=== PATIENT | female | born 2005 | race Caucasian/White ===

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

== ENCOUNTER 2024-02-11 12:45 | Emergency (ER) | payer OTHER ==
--- NOTE | 2024-02-11 13:12 | ED ---
General Adult HPI - General Source: patient Mode of arrival: ambulatory Limitations: no limitations <Benoit Parsons - Last Filed: 02/11/24 13:12> <Jose Landry - Last Filed: 02/11/24 16:37> - General Chief complaint: Psychiatric Symptoms Stated complaint: Mental Health Time Seen by Provider: 02/11/24 13:12 - History of Present Illness Initial comments: 18-year-old female presenting for psychiatric evaluation. Patient reports that she has been out of her psychiatric medications. States that she has been having disassociative symptoms. She has also been experiencing hallucinations. No suicidal ideation. Wants to be seen by psych (Benoit Parsons) 18-year-old female presenting to the emergency department for medication refill, patient denies any suicidal or homicidal ideation. She states she is just here for medication refill. She states she takes Zoloft, Seroquel and lithium. No other complaints. (Jose Landry) - Related Data Previous Rx's Medication Instructions Recorded QUEtiapine [SEROquel] 100 mg PO HS 7 Days #7 tab 11/09/22 Sertraline [Zoloft] 100 mg PO DAILY 7 Days #7 tab 11/09/22 Benzonatate [Tessalon Perle] 200 mg PO TID PRN #30 capsule 12/26/23 [place] Carbonate [[place] 300 mg PO DAILY #30 tab 02/11/24 Carbonate ER] QUEtiapine [SEROquel] 100 mg PO HS #30 tablet 02/11/24 Sertraline [Zoloft] 150 mg PO DAILY #90 tab 02/11/24 Allergies Allergy/AdvReac Type Severity Reaction Status Date / Time No Known Allergies Allergy Verified 02/11/24 12:59 Review of Systems ROS Other: All systems not noted in ROS Statement are negative. <Benoit Parsons - Last Filed: 02/11/24 13:12> ROS Other: All systems not noted in ROS Statement are negative. <Jose Landry - Last Filed: 02/11/24 16:37> ROS Statement: Those systems with pertinent positive or pertinent negative responses have been documented in the HPI. Past Medical History Past Medical History: No Reported History History of Any Multi-Drug Resistant Organisms: None Reported Past Surgical History: No Surgical Hx Reported Past Psychological History: ADD/ADHD, Anxiety, Depression, PTSD Smoking Status: Never smoker Past Alcohol Use History: Occasional Past Drug Use History: None Reported <Benoit Parsons - Last Filed: 02/11/24 13:12> General Exam Limitations: no limitations <Benoit Parsons - Last Filed: 02/11/24 13:12> General appearance: alert, in no apparent distress Head exam: Present: atraumatic, normocephalic Eye exam: Present: normal appearance, PERRL ENT exam: Present: normal exam Neck exam: Absent: tenderness, meningismus Respiratory exam: Present: normal lung sounds bilaterally. Absent: respiratory distress, wheezes Cardiovascular Exam: Present: regular rate, normal rhythm GI/Abdominal exam: Present: soft. Absent: distended, tenderness, guarding Neurological exam: Present: alert, oriented X3 Psychiatric exam: Present: flat affect. Absent: anxious, homicidal ideation, suicidal ideation Skin exam: Present: warm, dry, intact, normal color <Jose Landry - Last Filed: 02/11/24 16:37> - General Exam Comments Initial Comments: Visual Physical Exam Vital signs reviewed General: Well-appearing, nontoxic, no acute distress. Head: Normocephalic, atraumatic Eyes: PERRLA, EOMI ENT: Airway patent Chest: Nonlabored breathing Skin: No visual rash, normal skin tone Neuro: Alert and oriented 3 Musculoskeletal: No gross abnormalities (Benoit Parsons) Course Vital Signs 02/11/24 12:57 Temperature 98.4 F Pulse Rate 114 H Respiratory 20 Rate Blood Pressure 111/75 O2 Sat by Pulse 96 Oximetry Medical Decision Making <Benoit Parsons - Last Filed: 02/11/24 13:12> <Jose Landry - Last Filed: 02/11/24 16:37> - Medical Decision Making I performed the quick note portion of this visit, electronically signed Benoit Parsons PA-C (Benoit Parsons) Was pt. sent in by a medical professional or institution (DENISHA Beasley, SAW TAILER, urgent care, hospital, or skilled nursing...) When possible be specific @ -No Did you speak to anyone other than the patient for history (EMS, parent, family, police, friend...)? What history was obtained from this source @ -No Did you review nursing and triage notes (agree or disagree)? Why? @ -I reviewed and agree with nursing and triage notes Were old charts reviewed (outside hosp., previous admission, EMS record, old EKG, old radiological studies, urgent care reports/EKG's, skilled nursing records)? Report findings @ -No old charts were reviewed Differential Diagnosis: Medication refill EKG interpreted by me (3pts min.). @ -As above X-rays interpreted by me (1pt min.). @ -None done CT interpreted by me (1pt min.). @ -None done U/S interpreted by me (1pt. min.). @ -None done What testing was considered but not performed or refused? (CT, X-rays, U/S, labs)? Why? @ -None What meds were considered but not given or refused? Why? @ -None Did you discuss the management of the patient with other professionals (professionals i.e. , PA, SAW TAILER, lab, RT, psych nurse, social organization professor, capacity analyst, teacher, global chief creative officer, shoe caser)? Give summary @ -No Was smoking cessation discussed for >3mins.? @ -No Was critical care preformed (if so, how long)? @ -No Were there social determinants of health that impacted care today? How? (Homelessness, low income, unemployed, alcoholism, drug addiction, transportation, low edu. Level, literacy, decrease access to med. care, long term, rehab)? @ -No Was there de-escalation of care discussed even if they declined (Discuss DNR or withdrawal of care, Hospice)? DNR status @ -No What co-morbidities impacted this encounter? (DM, HTN, Smoking, COPD, CAD, Cancer, CVA, ARF, Chemo, Hep., AIDS, mental health diagnosis, sleep apnea, morbid obesity)? @ -Psychiatric history Was patient admitted / discharged? Hospital course, mention meds given and route, prescriptions, significant lab abnormalities, going to OR and other pertinent info. @Patient here for medication refill without any other complaint. I did refill her medications as requested and recommended that she follow-up with her psychiatrist and community mental health. She should return to the emergency department with any worsening or changing symptoms. Undiagnosed new problem with uncertain prognosis? @ -No Drug Therapy requiring intensive monitoring for toxicity (Heparin, Nitro, Insulin, Cardizem)? @ -No Were any procedures done? @ -No Diagnosis/symptom? @Medication refill Acute, or Chronic, or Acute on Chronic? @Acute Uncomplicated (without systemic symptoms) or Complicated (systemic symptoms)? @ -Default Side effects of treatment? @ -No Exacerbation, Progression, or Severe Exacerbation? @ -No Poses a threat to life or bodily function? How? (Chest pain, [place], [place], pneumonia, PE, COPD, DKA, ARF, appy, cholecystitis, CVA, Diverticulitis, Homicidal, Suicidal, threat to staff... and all critical care pts) @ -No (Jose Landry) Disposition <Benoit Parsons - Last Filed: 02/11/24 13:12> Time of Disposition: 16:34 <Jose Landry - Last Filed: 02/11/24 16:37> Clinical Impression: Medication refill Disposition: HOME SELF-CARE Condition: Fair Instructions (If sedation given, give patient instructions): Medicine Refill (ED) Additional Instructions: Please take medication as prescribed. Please follow-up with your psychiatrist or community mental health. Please return to the emergency department with any new or concerning symptoms. Prescriptions: [place] Carbonate [[place] Carbonate ER] 300 mg PO DAILY #30 tab QUEtiapine [SEROquel] 100 mg PO HS #30 tablet Sertraline [Zoloft] 150 mg PO DAILY #90 tab Referrals: None,Stated [Primary Care Provider] - 1-2 days
[2024-02-11 17:41] VITALS: BP 113/76; PULSE 90; RESP 18; TEMP 97.8
== END 2024-02-11 17:41 | disposition home or self-care (01) ==
LOC: EC 12:45
DX: Z76.0 Encounter for issue of repeat prescription (principal)
CPT/HCPCS: 99281; 99284

== ENCOUNTER 2024-03-25 23:59 | Emergency (ER) | payer OTHER ==
[2024-03-26 00:37] VITALS: BP 130/89; PULSE 80; RESP 18; TEMP 98
--- NOTE | 2024-03-26 00:49 | ED ---
General Adult HPI - General Chief complaint: Recheck/Abnormal Lab/Rx Stated complaint: Med refill Time Seen by Provider: 03/26/24 00:25 Source: patient Mode of arrival: ambulatory Limitations: no limitations - History of Present Illness Initial comments: 18-year-old female here for medication refill. Patient does not have a PCP currently, states they have had insurance issues. They also do not have a psychiatrist at the moment. They have been out of their medications for 3 days. No other complaints - Related Data Previous Rx's Medication Instructions Recorded [place] Carbonate [[place] 300 mg PO DAILY #30 tab 02/11/24 Carbonate ER] QUEtiapine [SEROquel] 100 mg PO HS #30 tablet 02/11/24 Sertraline [Zoloft] 150 mg PO DAILY #90 tab 02/11/24 [place] Carbonate [[place] 300 mg PO DAILY #30 tab 03/26/24 Carbonate ER] QUEtiapine [SEROquel] 100 mg PO HS #30 tablet 03/26/24 Sertraline [Zoloft] 150 mg PO DAILY #90 tab 03/26/24 Allergies Allergy/AdvReac Type Severity Reaction Status Date / Time No Known Allergies Allergy Verified 03/26/24 00:18 Review of Systems ROS Statement: Those systems with pertinent positive or pertinent negative responses have been documented in the HPI. ROS Other: All systems not noted in ROS Statement are negative. Past Medical History Past Medical History: No Reported History History of Any Multi-Drug Resistant Organisms: None Reported Past Surgical History: No Surgical Hx Reported Past Psychological History: ADD/ADHD, Anxiety, Depression, PTSD Smoking Status: Never smoker Past Alcohol Use History: Occasional Past Drug Use History: None Reported General Exam Limitations: no limitations General appearance: alert, in no apparent distress Head exam: Present: atraumatic, normocephalic, normal inspection Eye exam: Present: normal appearance, EOMI Neck exam: Present: normal inspection. Absent: meningismus Respiratory exam: Absent: respiratory distress Cardiovascular Exam: Present: regular rate Neurological exam: Present: alert, oriented X3 Psychiatric exam: Present: normal affect, normal mood Skin exam: Present: warm, dry Course Vital Signs 03/26/24 00:17 Temperature 98 F Pulse Rate 80 Respiratory 18 Rate Blood Pressure 130/89 O2 Sat by Pulse 98 Oximetry Medical Decision Making - Medical Decision Making Was pt. sent in by a medical professional or institution ([facility] Beasley, HOOP RIVETING MACHINE OPERATOR HELPER, urgent care, hospital, or senior care...) When possible be specific @ -No Did you speak to anyone other than the patient for history (EMS, parent, family, police, friend...)? What history was obtained from this source @ -No Did you review nursing and triage notes (agree or disagree)? Why? @ -I reviewed and agree with nursing and triage notes Were old charts reviewed (outside hosp., previous admission, EMS record, old EKG, old radiological studies, urgent care reports/EKG's, senior care records)? Report findings @ -No old charts were reviewed Differential Diagnosis (chest pain, altered mental status, abdominal pain women, abdominal pain men, vaginal bleeding, weakness, fever, dyspnea, syncope, headache, dizziness, GI bleed, back pain, seizure, CVA, palpatations, mental health, musculoskeletal)? @ -Not applicable EKG interpreted by me (3pts min.). @ -As above X-rays interpreted by me (1pt min.). @ -None done CT interpreted by me (1pt min.). @ -None done U/S interpreted by me (1pt. min.). @ -None done What testing was considered but not performed or refused? (CT, X-rays, U/S, labs)? Why? @ -None What meds were considered but not given or refused? Why? @ -None Did you discuss the management of the patient with other professionals (tahir blackwell i.e. DENISHA Beasley, HOOP RIVETING MACHINE OPERATOR HELPER, lab, RT, psych nurse, social media campaign manager, aircraft ordnance technician, teacher, recruitment officer, briefcase sewer)? Give summary @ -No Was smoking cessation discussed for >3mins.? @ -No Was critical care preformed (if so, how long)? @ -No Were there social determinants of health that impacted care today? How? (Homelessness, low income, unemployed, alcoholism, drug addiction, transportation, low edu. Level, literacy, decrease access to med. care, correction, rehab)? @ -No Was there de-escalation of care discussed even if they declined (Discuss DNR or withdrawal of care, Hospice)? DNR status @ -No What co-morbidities impacted this encounter? (DM, HTN, Smoking, COPD, CAD, Cancer, CVA, ARF, Chemo, Hep., AIDS, mental health diagnosis, sleep apnea, morbid obesity)? @ -None Was patient admitted / discharged? Hospital course, mention meds given and route, prescriptions, significant lab abnormalities, going to OR and other pertinent info. @ -18-year-old female requesting medication refill. She currently does not have a PCP or psychiatrist. Refills of Zoloft 150 mg daily, lithium 300 mg daily, and Seroquel 100 mg nightly are sent to the pharmacy. Provided with PCP referral. Follow-up with PCP. Report back to ER with any new or worsening symptoms. Discussed return parameters and answered all questions. Patient conveyed verbal understanding and agreed to the plan. I discussed this case in detail with my attending Dr. Borrero Undiagnosed new problem with uncertain prognosis? @ -No Drug Therapy requiring intensive monitoring for toxicity (Heparin, Nitro, Insulin, Cardizem)? @ -No Were any procedures done? @ -No Diagnosis/symptom? @ -Encounter for medication refill Acute, or Chronic, or Acute on Chronic? @ -Acute Uncomplicated (without systemic symptoms) or Complicated (systemic symptoms)? @ -Uncomplicated Side effects of treatment? @ -No Exacerbation, Progression, or Severe Exacerbation? @ -No Poses a threat to life or bodily function? How? (Chest pain, [place], [place], pneumonia, PE, COPD, DKA, ARF, appy, cholecystitis, CVA, Diverticulitis, Homicidal, Suicidal, threat to staff... and all critical care pts) @ -No Disposition Clinical Impression: Encounter for medication refill Disposition: HOME SELF-CARE Condition: Good Additional Instructions: Follow-up with PCP. Prescriptions: [place] Carbonate [[place] Carbonate ER] 300 mg PO DAILY #30 tab QUEtiapine [SEROquel] 100 mg PO HS #30 tablet Sertraline [Zoloft] 150 mg PO DAILY #90 tab Is patient prescribed a controlled substance at d/c from ED?: No Referrals: None,Stated [Primary Care Provider] - 1-2 days Forms: Area PCPs Time of Disposition: 00:47
== END 2024-03-26 00:55 | disposition home or self-care (01) ==
LOC: EC 23:59
DX: Z76.0 Encounter for issue of repeat prescription (principal)
CPT/HCPCS: 99281

== ENCOUNTER 2024-04-12 19:42 | Emergency (ER) | payer OTHER ==
[2024-04-12] MEDS: IBUPROFEN 600 MG TAB PO STA (20:16)
--- NOTE | 2024-04-12 20:48 | XR ---
EXAMINATION TYPE: XR chest 2V DATE OF EXAM: 04/12/2024 8:31 PM COMPARISON: 12/26/2023 CLINICAL INDICATION: Female, 18 years old with history of cough sob, swollen throat nausea vomiting TECHNIQUE: XR chest 2V view(s) obtained. FINDINGS: The heart size is normal. The pulmonary vasculature is normal. The lungs are clear. IMPRESSION: 1. No acute pulmonary process. [facility], Workstation: [facility], 04/12/2024 8:45 PM
--- NOTE | 2024-04-12 21:02 | ED ---
SOB HPI - General Chief Complaint: Shortness of Breath Stated Complaint: cough, vomiting Time Seen by Provider: 04/12/24 21:01 Source: patient, RN notes reviewed Mode of arrival: ambulatory Limitations: no limitations - History of Present Illness Initial Comments: Patient is a 18-year-old female presenting to the ER for evaluation of swollen t hroat and shortness of breath. Patient states she abruptly woke up around 5 AM this morning feeling short of breath and having difficulty catching her breath. She states she took inhaler at that time. Unsure of which medication. She states after that she started to feel a swollen throat as if her uvula was touching her tongue causing her to gag and have numerous episodes of emesis. She denies any hematic emesis or coffee-ground emesis. Patient does report she has had recent night sweats and chills. Denies known fevers. Patient has no history of asthma and was prescribed inhaler due to recent illness. Patient denies any chest pain, cough, congestion, abdominal pain, constipation/diarrhea, urinary complaints or peripheral edema. - Related Data Previous Rx's Medication Instructions Recorded Morgan Carbonate [Morgan 300 mg PO DAILY #30 tab 02/11/24 Carbonate ER] QUEtiapine [SEROquel] 100 mg PO HS #30 tablet 02/11/24 Sertraline [Zoloft] 150 mg PO DAILY #90 tab 02/11/24 Morgan Carbonate [Morgan 300 mg PO DAILY #30 tab 03/26/24 Carbonate ER] QUEtiapine [SEROquel] 100 mg PO HS #30 tablet 03/26/24 Sertraline [Zoloft] 150 mg PO DAILY #90 tab 03/26/24 Allergies Allergy/AdvReac Type Severity Reaction Status Date / Time No Known Allergies Allergy Verified 04/12/24 19:52 Review of Systems ROS Statement: Those systems with pertinent positive or pertinent negative responses have been documented in the HPI. ROS Other: All systems not noted in ROS Statement are negative. Past Medical History Past Medical History: No Reported History History of Any Multi-Drug Resistant Organisms: None Reported Past Surgical History: No Surgical Hx Reported Past Psychological History: ADD/ADHD, Anxiety, Depression, PTSD Smoking Status: Never smoker Past Alcohol Use History: Occasional Past Drug Use History: None Reported General Exam Limitations: no limitations General appearance: alert, in no apparent distress ENT exam: Present: normal exam, mucous membranes moist, TM's normal bilaterally, other (Erythematous oropharynx.) Neck exam: Present: normal inspection. Absent: tenderness, meningismus, lymph adenopathy Respiratory exam: Present: normal lung sounds bilaterally. Absent: respiratory distress, wheezes, rales, rhonchi, stridor Cardiovascular Exam: Present: regular rate, normal rhythm, normal heart sounds. Absent: systolic murmur, diastolic murmur, rubs, gallop, clicks GI/Abdominal exam: Present: soft, normal bowel sounds. Absent: distended, tenderness, guarding, rebound, rigid Extremities exam: Present: normal inspection, full ROM, normal capillary refill. Absent: tenderness, pedal edema, joint swelling, calf tenderness Neurological exam: Present: alert, oriented X3, CN II-XII intact Skin exam: Present: warm, dry, intact, normal color. Absent: rash Course Vital Signs 04/12/24 04/12/24 19:52 21:36 Temperature 98.1 F 97.8 F Pulse Rate 116 H 98 Respiratory 18 19 Rate Blood Pressure 115/80 120/84 O2 Sat by Pulse 98 98 Oximetry Medical Decision Making - Medical Decision Making Was pt. sent in by a medical professional or institution (, PA, [employer], urgent care, hospital, or [facility]...) When possible be specific @ -No Did you speak to anyone other than the patient for history (EMS, parent, family, police, friend...)? What history was obtained from this source @ -No Did you review nursing and triage notes (agree or disagree)? Why? @ -I reviewed and agree with nursing and triage notes Were old charts reviewed (outside hosp., previous admission, EMS record, old EKG, old radiological studies, urgent care reports/EKG's, [facility] records)? Report findings @ -No old charts were reviewed Differential Diagnosis (chest pain, altered mental status, abdominal pain women, abdominal pain men, vaginal bleeding, weakness, fever, dyspnea, syncope, headache, dizziness, GI bleed, back pain, seizure, CVA, palpatations, mental health, musculoskeletal)? @ -Strep pharyngitis, tonsillitis, viral illness,... This list is not meant to be all-inclusive EKG interpreted by me (3pts min.). @ -None done X-rays interpreted by me (1pt min.). @ -CXR interpreted me negative for focal consolidation, pneumothorax, effusions. CT interpreted by me (1pt min.). @ -None done U/S interpreted by me (1pt. min.). @ -None done What testing was considered but not performed or refused? (CT, X-rays, U/S, labs)? Why? @ -None What meds were considered but not given or refused? Why? @ -None Did you discuss the management of the patient with other professionals (professionals i.e. , PA, [employer], lab, RT, psych nurse, child protective services social worker, parts specialist, teacher, chief environmental commitment officer, medical case manager)? Give summary @ -No Was smoking cessation discussed for >3mins.? @ -No Was critical care preformed (if so, how long)? @ -No Were there social determinants of health that impacted care today? How? (Homelessness, low income, unemployed, alcoholism, drug addiction, transportation, low edu. Level, literacy, decrease access to med. care, shelter, rehab)? @ -No Was there de-escalation of care discussed even if they declined (Discuss DNR or withdrawal of care, Hospice)? DNR status @ -No What co-morbidities impacted this encounter? (DM, HTN, Smoking, COPD, CAD, Cancer, CVA, ARF, Chemo, Hep., AIDS, mental health diagnosis, sleep apnea, morbid obesity)? @ -Obese Was patient admitted / discharged? Hospital course, mention meds given and route, prescriptions, significant lab abnormalities, going to OR and other pertinent info. @ -Discharge. 18-year-old female presenting to the ER for evaluation of swollen uvula. Upon rooming, history and physical exam completed. Vitals within acceptable limits. Oropharynx including uvula is erythematous. Oropharynx is patent. Viral swab negative. Strep negative. CXR negative. Patient given p.o. ibuprofen and IM Decadron for symptom control. Discomfort possibly viral or due to snoring as patient admits to this and symptoms worse in AM. Upon reevaluation, patient playing game on laptop with no signs of acute distress. Results discussed with patient, all questions answered. I advised [id number] ibuprofen and Tylenol for pain control outpatient. Advised close follow-up with PCP for outpatient further evaluation. Strict return parameters discussed. Patient discharged in stable condition with follow-up to PCP. Patient verbally expressed understanding and agreement with care plan. Case discussed with ED attending, Dr. Leblanc. Undiagnosed new problem with uncertain prognosis? @ -No Drug Therapy requiring intensive monitoring for toxicity (Heparin, Nitro, Insulin, Cardizem)? @ -No Were any procedures done? @ -No Diagnosis/symptom? @ -Uvulitis Acute, or Chronic, or Acute on Chronic? @ -Acute Uncomplicated (without systemic symptoms) or Complicated (systemic symptoms)? @ -Uncomplicated Side effects of treatment? @ -No Exacerbation, Progression, or Severe Exacerbation? @ -No Poses a threat to life or bodily function? How? (Chest pain, USA, CT, pneumonia, PE, COPD, DKA, ARF, appy, cholecystitis, CVA, Diverticulitis, Homicidal, Suicidal, threat to staff... and all critical care pts) @ -No - Lab Data Lab Results 04/12/24 04/12/24 Range/Units 20:19 20:19 Influenza Type A (PCR) Not Detected (Not Detectd) Influenza Type B (PCR) Not Detected (Not Detectd) RSV (PCR) Not Detected (Not Detectd) SARS-CoV-2 (PCR) Not Detected (Not Detectd) Group A Strep (PCR) NOT DETECTED (Not Detectd) Disposition Clinical Impression: Uvulitis Disposition: HOME SELF-CARE Condition: Stable Instructions (If sedation given, give patient instructions): Uvulitis (ED) Additional Instructions: Follow-up with PCP. Return to the ER for any new or worsening symptoms. Is patient prescribed a controlled substance at d/c from ED?: No Referrals: None,Stated [Primary Care Provider] - 1-2 days Forms: Area PCPs Time of Disposition: 21:34
[2024-04-12 21:22] LABS: Influenza A Not Detected (Not Detectd); Influenza B Not Detected (Not Detectd); RSV Not Detected (Not Detectd)
[2024-04-12 21:36] VITALS: BP 120/84; PULSE 98; RESP 19; TEMP 97.8
[2024-04-12] MEDS: DEXAMETHASONE SOD PHOSPHATE 10 MG/ML 1 ML VIAL IM STA (21:40)
== END 2024-04-12 21:45 | disposition home or self-care (01) ==
LOC: EC 19:42
DX: K12.2 Cellulitis and abscess of mouth (principal); E66.9 Obesity, unspecified
CPT/HCPCS: 87651; 87636; 71046; 99285; 96372; J1100

== ENCOUNTER 2024-06-07 21:27 | Emergency (ER) | payer OTHER ==
--- NOTE | 2024-06-08 00:17 | ED ---
Psych HPI - General Chief Complaint: Psychiatric Symptoms Stated Complaint: med refill Time Seen by Provider: 06/07/24 23:42 Source: patient Mode of arrival: ambulatory - History of Present Illness Initial Comments: This patient is a 18-year-old woman with history of bipolar disorder, PTSD, schizoaffective disorder, who presents with request that she is out of her medications and has not been able to have them refilled. She states that she was being seen through [facility] and that they were prescribing her medication but she then lost her health coverage. The patient denies new symptoms. Not actively suicidal. MD Complaint: other -: month(s) Associated Psychiatric Symptoms: none History of same: Yes Quality: resolved prior to arrival Improves With: medication Worsens With: none - Related Data Previous Rx's Medication Instructions Recorded [place] Carbonate [[place] 300 mg PO DAILY #30 tab 02/11/24 Carbonate ER] QUEtiapine [SEROquel] 100 mg PO HS #30 tablet 02/11/24 Sertraline [Zoloft] 150 mg PO DAILY #90 tab 02/11/24 [place] Carbonate [[place] 300 mg PO DAILY #30 tab 03/26/24 Carbonate ER] QUEtiapine [SEROquel] 100 mg PO HS #30 tablet 03/26/24 Sertraline [Zoloft] 150 mg PO DAILY #90 tab 03/26/24 Amoxic-Pot Clav 875-125Mg 1 tab PO Q12HR 7 Days #14 tab 04/19/24 [Augmentin 875-125] Benzonatate [Tessalon Perle] 200 mg PO TID PRN #20 capsule 04/19/24 Promethazine/Dextromethorphan 5 ml PO Q4-6H PRN #150 ml 04/19/24 [Promethazine-Dm 6.25-15 mg/5Ml] [place] Carbonate [[place] 300 mg PO DAILY 30 Days #30 tab 04/24/24 Carbonate ER] QUEtiapine [SEROquel] 100 mg PO HS 30 Days #30 tablet 04/24/24 Sertraline [Zoloft] 150 mg PO DAILY 30 Days #30 tab 04/24/24 [place] Carbonate [[place] 300 mg PO DAILY #30 tab 06/08/24 Carbonate ER] QUEtiapine [SEROquel] 100 mg PO HS #30 tablet 06/08/24 Sertraline HCl [Zoloft] 150 mg PO DAILY #30 tab 06/08/24 Allergies Allergy/AdvReac Type Severity Reaction Status Date / Time No Known Allergies Allergy Verified 04/24/24 13:48 Review of Systems ROS Statement: Those systems with pertinent positive or pertinent negative responses have been documented in the HPI. ROS Other: All systems not noted in ROS Statement are negative. Constitutional: Denies: fever, chills Respiratory: Denies: cough, dyspnea Cardiovascular: Denies: chest pain, palpitations Gastrointestinal: Denies: abdominal pain, vomiting Genitourinary: Denies: dysuria Musculoskeletal: Denies: back pain Skin: Denies: rash Neurological: Denies: headache, weakness Psychiatric: Denies: depression, auditory hallucinations, visual hallucinations, homicidal thoughts, suicidal thoughts Past Medical History Past Medical History: No Reported History History of Any Multi-Drug Resistant Organisms: None Reported Past Surgical History: No Surgical Hx Reported Past Psychological History: ADD/ADHD, Anxiety, Depression, PTSD Smoking Status: Current every day smoker, Vaper Past Alcohol Use History: Occasional Past Drug Use History: Marijuana General Exam Limitations: no limitations General appearance: alert, in no apparent distress Head exam: Present: atraumatic, normocephalic Eye exam: Present: normal appearance. Absent: scleral icterus, conjunctival injection ENT exam: Present: normal oropharynx Neck exam: Present: normal inspection Respiratory exam: Present: normal lung sounds bilaterally. Absent: respiratory distress, wheezes, rales, rhonchi, stridor, accessory muscle use Cardiovascular Exam: Present: regular rate, normal rhythm, normal heart sounds. Absent: systolic murmur, diastolic murmur, rubs, gallop GI/Abdominal exam: Present: soft. Absent: distended, tenderness, guarding, rebound, rigid, mass Extremities exam: Present: normal inspection, normal capillary refill. Absent: pedal edema, calf tenderness Back exam: Present: normal inspection. Absent: CVA tenderness (R), CVA tenderness (L) Neurological exam: Present: alert, oriented X3 Psychiatric exam: Present: normal affect, normal mood. Absent: agitated, anxious, homicidal ideation, suicidal ideation Skin exam: Present: warm, dry, intact, normal color. Absent: rash Course Vital Signs 06/07/24 21:53 Temperature 98 F Pulse Rate 78 Respiratory 20 Rate Blood Pressure 147/101 O2 Sat by Pulse 99 Oximetry Disposition Clinical Impression: Medication refill Disposition: HOME SELF-CARE Condition: Good Prescriptions: Vanndale Carbonate [Vanndale Carbonate ER] 300 mg PO DAILY #30 tab QUEtiapine [SEROquel] 100 mg PO HS #30 tablet Sertraline HCl [Zoloft] 150 mg PO DAILY #30 tab Is patient prescribed a controlled substance at d/c from ED?: No Referrals: None,Stated [Primary Care Provider] - 1-2 days
[2024-06-08 00:35] VITALS: BP 124/88; PULSE 105; RESP 17; TEMP 97.6
== END 2024-06-08 00:37 | disposition home or self-care (01) ==
LOC: EC 21:27
DX: Z76.0 Encounter for issue of repeat prescription (principal); F17.290 Nicotine dependence, other tobacco product, uncomplicated
CPT/HCPCS: 82075; 99284

== ENCOUNTER 2024-07-02 20:16 | Inpatient (IN) | payer MEDICAID, OTHER ==
--- NOTE | 2024-07-02 21:12 | ED ---
Psych HPI - General Chief Complaint: Psychiatric Symptoms Stated Complaint: Mental issues Time Seen by Provider: 07/02/24 21:03 Source: patient, RN notes reviewed, old records reviewed Mode of arrival: ambulatory Limitations: no limitations - History of Present Illness Initial Comments: This is a 18-year-old presents today for evaluation of psychiatric and suicidal thoughts. Patient states home medications are not working and needs medication adjustment MD Complaint: suicidal ideation, feels depressed -: days(s) Associated Psychiatric Symptoms: depression, suicidal ideation History of same: Yes Quality: constant Improves With: none Worsens With: none Associated Symptoms: denies other symptoms Treatments Prior to Arrival: placed on mental health hold If Self Harm: admits thoughts of self harm - Related Data Previous Rx's Medication Instructions Recorded [place] Carbonate [Verona 300 mg PO DAILY #30 tab 02/11/24 Carbonate ER] QUEtiapine [SEROquel] 100 mg PO HS #30 tablet 02/11/24 Sertraline [Zoloft] 150 mg PO DAILY #90 tab 02/11/24 [place] Carbonate [[place] 300 mg PO DAILY #30 tab 03/26/24 Carbonate ER] QUEtiapine [SEROquel] 100 mg PO HS #30 tablet 03/26/24 Sertraline [Zoloft] 150 mg PO DAILY #90 tab 03/26/24 Amoxic-Pot Clav 875-125Mg 1 tab PO Q12HR 7 Days #14 tab 04/19/24 [Augmentin 875-125] Benzonatate [Tessalon Perle] 200 mg PO TID PRN #20 capsule 04/19/24 Promethazine/Dextromethorphan 5 ml PO Q4-6H PRN #150 ml 04/19/24 [Promethazine-Dm 6.25-15 mg/5Ml] [place] Carbonate [Verona 300 mg PO DAILY 30 Days #30 tab 04/24/24 Carbonate ER] QUEtiapine [SEROquel] 100 mg PO HS 30 Days #30 tablet 04/24/24 Sertraline [Zoloft] 150 mg PO DAILY 30 Days #30 tab 04/24/24 [place]ona Carbonate [Verona 300 mg PO DAILY #30 tab 06/08/24 Carbonate ER] QUEtiapine [SEROquel] 100 mg PO HS #30 tablet 06/08/24 Sertraline HCl [Zoloft] 150 mg PO DAILY #30 tab 06/08/24 Allergies Allergy/AdvReac Type Severity Reaction Status Date / Time No Known Allergies Allergy Verified 07/02/24 20:31 Review of Systems ROS Statement: Those systems with pertinent positive or pertinent negative responses have been documented in the HPI. ROS Other: All systems not noted in ROS Statement are negative. Past Medical History Past Medical History: No Reported History History of Any Multi-Drug Resistant Organisms: None Reported Past Surgical History: No Surgical Hx Reported Past Psychological History: ADD/ADHD, Anxiety, Depression, PTSD Smoking Status: Current every day smoker, Vaper Past Alcohol Use History: Occasional Past Drug Use History: Marijuana General Exam Limitations: no limitations General appearance: alert, in no apparent distress Head exam: Present: atraumatic, normocephalic, normal inspection Eye exam: Present: normal appearance, PERRL, EOMI. Absent: scleral icterus, conjunctival injection, periorbital swelling ENT exam: Present: normal exam, mucous membranes moist Neck exam: Present: normal inspection. Absent: tenderness, meningismus, lymphadenopathy Respiratory exam: Present: normal lung sounds bilaterally. Absent: respiratory distress, wheezes, rales, rhonchi, stridor Cardiovascular Exam: Present: regular rate, normal rhythm, normal heart sounds. Absent: systolic murmur, diastolic murmur, rubs, gallop, clicks GI/Abdominal exam: Present: soft, normal bowel sounds. Absent: distended, tenderness, guarding, rebound, rigid Extremities exam: Present: normal inspection, full ROM, normal capillary refill. Absent: tenderness, pedal edema, joint swelling, calf tenderness Back exam: Present: normal inspection Neurological exam: Present: alert, oriented X3, CN II-XII intact Psychiatric exam: Present: normal affect, normal mood Skin exam: Present: warm, dry, intact, normal color. Absent: rash Course Vital Signs 07/02/24 20:28 Temperature 98.2 F Pulse Rate 102 Respiratory 20 Rate Blood Pressure 129/87 O2 Sat by Pulse 95 Oximetry - Reevaluation(s) Reevaluation #1: 07/02/24 23:46 Medical records reviewed Reevaluation #2: 07/02/24 23:46 Medical psychiatric evaluation Reevaluation #3: Differential Mental Health Depression, anxiety, bipolar, psychosis, schizophrenia, borderline personality, situational depression, adjustment disorder, behavioral disorder, brain tumor, malingering, substance abuse, encephalopathy, medication reaction, dementia, hypothyroidism, degenerative neurologic disorder, lupus.... This is not meant to be all-inclusive list Reevaluation #4: yes negative for acute disease Medical Decision Making - Medical Decision Making 18-year-old seen eval by psychiatry will admit for mental health Disposition Clinical Impression: Depression, Post traumatic stress disorder (PTSD) Disposition: TRANSFER TO PSYCH HOSP/UNIT Condition: Fair Is patient prescribed a controlled substance at d/c from ED?: No Referrals: None,Stated [Primary Care Provider] - 1-2 days
[2024-07-02 23:58] LABS: Influenza A Not Detected (Not Detectd); Influenza B Not Detected (Not Detectd); RSV Not Detected (Not Detectd)
[2024-07-03] MEDS ORDERED: haloperidoL 5 MG TAB PO PRN (02:22)
[2024-07-03] MEDS ORDERED: IBUPROFEN 600 MG TAB PO PRN (02:22)
[2024-07-03] MEDS ORDERED: LORazepam 2 MG/ML INJ IM PRN (02:22)
[2024-07-03] MEDS ORDERED: MAGNESIUM HYDROXIDE 2,400 MG/30 ML CUP PO PRN (02:22)
[2024-07-03] MEDS ORDERED: HALOPERIDOL LACTATE 5 MG/ML 1 ML VIAL IM PRN (02:22)
[2024-07-03] MEDS ORDERED: MAG HYDROX/AL HYDROX/SIMETH 355 ML BOTTLE PO PRN (02:22)
[2024-07-03] MEDS ORDERED: ACETAMINOPHEN TAB 325 MG TAB PO PRN (02:22)
[2024-07-03] MEDS: QUEtiapine 100 MG TAB PO ONE (04:19)
[2024-07-03] MEDS: SERTRALINE 100 MG TAB PO SCH (10:36)
[2024-07-03] MEDS: NICOTINE 14MG/24HR PATCH TRANSDERM SCH (10:36)
[2024-07-03] MEDS: LITHIUM CARBONATE 300 MG CAP PO SCH (10:37)
--- NOTE | 2024-07-03 12:05 | P.HP ---
Psychiatric H&P - . H&P Date: 07/03/24 History & Physical: Allergies Allergy/AdvReac Type Severity Reaction Status Date / Time No Known Allergies Allergy Verified 07/02/24 20:31 Vital Signs Temp 97.5 F 07/03/24 10:41 Pulse 107 07/03/24 10:41 Resp 18 07/03/24 10:41 BP 120/81 07/03/24 10:41 Pulse Ox 100 07/03/24 10:41 FiO2 Intake & Output 07/02/24 07/03/24 07/03/24 18:59 06:59 18:59 Weight 121.1 kg Laboratory Last Values [place] <0.2 mmol/L 07/03/24 04:13 Influenza Type A (PCR) Not Detected (Not Detectd) 07/02/24 23:17 Influenza Type B (PCR) Not Detected (Not Detectd) 07/02/24 23:17 RSV (PCR) Not Detected (Not Detectd) 07/02/24 23:17 SARS-CoV-2 (PCR) Not Detected (Not Detectd) 07/02/24 23:17 07/03/24 11:53 IDENTIFYING DATA: Patient is a 18-year-old individual, employed and living independently CHIEF COMPLAINT: SI HPI: Patient presented to the hospital with suicidal thoughts. Per EPS, "Patient presents sitting up in stretcher, currently watching TV, and agreeable to speak to casualty underwriter. Patient appears to be disheveled and unkept, restricted affect, and restless fidgeting with her hands constantly. Patient is transgender female to male, and prefers he/him pronouns. Patient verbalizes "I need a medication change real bad" when asked about presenting problem. Patient states that he has been having increased paranoia, anxiety, and hallucinations. Describes feeling constantly paranoid like people are looking at him and judging him, expresses that he is worried that his mom is stalking him, and believed today that the police was outside to get him and felt like he could hear them outside talking when no one present. Verbalizes having auditory and visual hallucinations. Describes hearing mumbling/whispers but unable to make out any words/voices. Patient states he has been having visual and tactile hallucinations of bugs on his skin. Patient verbalizes being open with [facility] and had intake appointment completed. Verbalizes recently leaving [facility] due to moving to [place]. Patient states that he has history of multiple inpatients but most recent in 10/2022. Patient states having self harm recently to left breast and left forearm. Superficial lacerations noted to left forearm at this time. Patient verbalizes fleeting suicidal thoughts with no current plan. States he has a desire for "everything to stop". Patient verbalizes increased recent stressors including recent suspension from job, inability to pay bills, and running out of food and basic essentials. Patient denies homicidal ideations. Patient verbalizes poor appetite, inability to eat, and no motivation to eat. Describes fair to poor sleep. States when taking medications her sleep is fair and very poor without. States difficulty falling and staying asleep. Patient verbalizes social alcohol use, last drink 2 days ago. Patient verbalizes drinking less than monthly. Patient verbalizes frequent marijuana use, about 3-4x/week. Denies legal hx." Patient seen and evaluated on the unit and was agreeable with speaking to casualty underwriter in office. He states symptoms have been present for few weeks however were exacerbated after receiving a 3-day suspension from his job due to him calling the police on the client who had threatened him. He states feeling blindsided by his suspension, and patient has been journaling since last Tuesday to get their thoughts down. Patient was able to read this journal which describes a long history of depression with self harming behaviors. Patient reports cutting their wrist in their left breast and had developed suicidal ideations with a plan to cut their throat however they were able to communicate with friends who helped him. He reports decrease in appetite, hopelessness, poor sleep, low energy. Patient reports recently experiencing paranoia, auditory hallucinations that are described as hearing police sirens, visual hallucinations of seeing bugs in addition to tactile hallucinations. Patient denies any suicidal or homicidal ideations intent or plan. At this time patient denies any auditory hallucinations however does describe visual hallucinations described as seeing bugs. Patient denies any flight of ideas racing thoughts and increased in goal directed behavior. Patient does report a history of hypomania described as decreased need for sleep with excessive involvement in projects, racing thoughts that can last up to a week. Patient admits to using nicotine daily, social alcohol and cannabis a few times a week. PAST PSYCHIATRIC HISTORY: Patient has a history of MDD, PTSD, autism spectrum disorder. Patient is currently prescribed Seroquel 100 mg at bedtime, Zoloft 150 mg daily, lithium 300 mg daily. Patient reports at least 7 previous inpatient hospitalizations, most recent being 10/2022. Patient denies any psychiatric outpatient follow-up. She is currently close with [facility]. Patient reports 7 suicide attempts, most recent being in his adolescence PMH: as per ER note ALLERGIES: as per EMR SUBSTANCE USE HISTORY: Patient reports smoking nicotine daily, using cannabis a few times a week with social alcohol FAMILY PSYCHIATRIC/SUBSTANCE USE HISTORY: Patient states his mother has bipolar disorder and cousin has schizophrenia SOCIAL HISTORY: Patient is single, lives alone and has no children. He works at [employer], completed high school. MENTAL STATUS EXAM: General Appearance: Patient appears to be stated age is alert, directable, and attempts to cooperate. Patient appears to have fair hygiene and grooming. Patient is overweight Behavior: Patient is seated without any agitated behavior. Speech: Patient's speech is fluent and nonpressured. Mood/Affect: Patient reports their mood is depressed, affect is congruent and constricted. Suicidality/Homicidality: Patient denies having any homicidal ideation intent or plan. Denies any suicidal ideations intent or plan Perceptions: Patient denies any auditory hallucinations however does report vi sual hallucinations described as seeing bugs Though content/process: Patient describes paranoia, thought processes overall is linear Memory and concentration: AOX3, grossly intact for the purposes of this session. Can spell "WORLD" backwards Judgment and insight: Fair STRENGTHS/WEAKNESSES: strength is that patient is resilient. Weakness is that patient has poor judgment and is impulsive INTELLECT: Average IMPRESSIONS: Bipolar disorder, current episode depressed Autism spectrum disorder Cluster B traits History of PTSD Nicotine dependence PLAN: -Patient is admitted under voluntary status to [facility] for stabilization of psychiatric symptoms and safety. Patient has signed adult voluntary form and and is placed in patient's chart. -Medications : Increase Zoloft to 200 mg daily for depression/anxiety, increase Seroquel to 200 mg at bedtime for psychosis, change to lithium 2 Lithobid and increase this to 450 mg daily for mood stabilization - Ativan and Haldol PRN for agitation/aggression -Patient was counselled on substance abuse and desired to cut back on use -Patient was informed of the risks, benefits and side effects of the medication and patient verbally consented to taking the medications. Patient signed med consent form and was placed in chart. Patient offered and declined patient education sheet for psychotropic medications. -Internal Medicine consult to perform medical evaluation and physical. -NRT -nicotine patch -SW on board for discharge planning. Encourage patient to participate in groups to work on coping skills.
[2024-07-03] MEDS: SERTRALINE 50 MG TAB PO ONE (13:43)
[2024-07-03] MEDS ORDERED: QUEtiapine 100 MG TAB PO SCH (21:00)
[2024-07-03] MEDS: QUEtiapine 200 MG TAB PO SCH (21:04)
[2024-07-03] MEDS: LORazepam 1 MG TAB PO PRN (23:28)
[2024-07-04 07:52] LABS: Basophils # (A) 0.09 10*3/uL (0.00-0.10); Basophils % (A) 0.8 %; Eosinophils # (A) 0.43 10*3/uL (0.04-0.35); HCT 40.1 % (37.2-50.0); HGB 12.9 g/dL (12.0-17.0); Lymphocytes # (A) 3.58 10*3/uL (0.90-5.00); Lymphocytes % (A) 33.1 %; MCH 27.3 pg (27.0-32.0); MCHC 32.2 g/dL (32.0-37.0); Monocytes # (A) 0.65 10*3/uL (0.20-1.00); Neutrophils # (A) 6.03 10*3/uL (1.80-7.70); Neutrophils % (A) 55.6 %; Platelet Count 325 10*3/uL (140-440); RBC 4.72 10*6/uL (4.10-5.60); RDW 17.5 % (11.5-14.5); WBC 10.83 10*3/uL (4.50-10.00)
[2024-07-04 08:08] LABS: ALT 27 U/L (4-49); AST 22 U/L (17-59); African American GFR (CKD) >90 (>60 ml/min/1.73 sqM); Albumin 4.1 g/dL (3.5-5.0); Alkaline Phosphatase 103 U/L (38-126); Anion Gap 10 mmol/L; Blood Urea Nitrogen 8 mg/dL (9-20); Calcium 9.9 mg/dL (8.4-10.2); Carbon Dioxide 25 mmol/L (22-30); Chloride 105 mmol/L (98-107); Glucose 90 mg/dL (74-99); Non-African American GFR(CKD) >90 (>60 ml/min/1.73 sqM); Potassium 4.2 mmol/L (3.5-5.1); Sodium 140 mmol/L (137-145); Total Bilirubin 0.7 mg/dL (0.2-1.3); Total Protein 7.3 g/dL (6.3-8.2)
[2024-07-04] MEDS: LITHIUM CARBONATE ER 450 MG TABLET.ER PO SCH (09:07)
[2024-07-04] MEDS: SERTRALINE 100 MG TAB PO SCH (09:08)
[2024-07-04 10:33] LABS: Chol/HDL Ratio 4.98 Ratio; LDL Cholesterol,Calculated 103.1 mg/dL (0.0-131.0)
--- NOTE | 2024-07-04 14:18 | P.PN ---
Progress Note - Text Progress Note Date: 07/04/24 Interval History: Patient was seen in the room and was directable and agreeable to speak with wr iter in the room. Patient expressed feeling well today, goal oriented and excited to get back to work on Tuesday. They no longer hear voices and denied any suicidal ideations today. They report sleeping well, denied any appetite changes. At this time patient denies any suicidal or homicidal ideations, intent or plan. Patient denies any auditory, visual hallucinations and denies any paranoia or delusions. Patient denies any side effects from the medications and has been compliant with meds. Mental Status Exam: General Appearance: Patient appears to be stated age is alert, directable, and c ooperative. Patient is overweight Behavior: Patient is calmly laying without any agitated behavior. Speech: Patient's speech is fluent and nonpressured. Mood/Affect: Mood is improving mildly, affect is congruent and blunted. Suicidality/Homicidality: Patient denies having any suicidal or homicidal ideation intent or plan. Perceptions: Patient denies any visual hallucinations and denies any auditory hallucinations Though content/process: There is no evidence of any delusional thought content and thought process is linear and goal-directed. Memory and concentration: AOX3, grossly intact for the purposes of this session Judgment and insight: Improving mildly Assessment Bipolar disorder, current episode depressed Autism spectrum disorder Cluster B traits History of PTSD Nicotine dependence Plan: -Patient continues to meet criteria for inpatient psychiatric admission for symptom stabilization and safety. Patient has signed adult voluntary form and medication consent and was placed in patient's chart. -Medications: Continue Zoloft 200 mg daily for depression/anxiety, Seroquel 200 mg at bedtime for psychosis, Lithobid 450 mg daily for mood stabilization -When necessary Ativan and Haldol for agitation/aggression. -Labs: Reviewed, lithium level ordered tomorrow -NRT - nicotine patch -SW on board for discharge planning. Encouraged the patient to participate in milieu. Anticipate discharge back home alone tomorrow
--- NOTE | 2024-07-04 21:00 | P.CONS ---
History of Present Illness - Reason for Consult Consult date: 07/04/24 med managenet - Chief Complaint SI - History of Present Illness Donal is a 18 yo who identifies as Nacho. Nacho is currently seen in behavioral health unit. He reports that he had presented to the hospital yesterday with psychiatric and suicidal thoughts. He reports that he has been compliant with all his home medications however he reports that they were ineffective. Most recent set of vital signs are from 09 100 this morning. Temperature is 90.6 heart rate is 130 respiratory rate is 16 blood pressure is 118/59 the patient is 97% room air. Besides home psychiatric medications the patient reports that he uses a albuterol inhaler as needed for asthma. Lab work on file is from this morning which reveals a white blood cell count of 10.3 hemoglobin of 12.9 platelet count of 325. CMP shows a sodium 140 creatinine of 0.8 A1c of 5.7%. LDL is noted to be 103. [place] level is negative flu a flu B RSV or COVID-19 are negative TSH is 2.11. Review of Systems Pertinent positives and negatives as discussed in HPI, a complete review of systems was performed and all other systems are negative. Past Medical History Past Medical History: No Reported History History of Any Multi-Drug Resistant Organisms: None Reported Past Surgical History: No Surgical Hx Reported Past Psychological History: ADD/ADHD, Anxiety, Depression, PTSD Smoking Status: Current every day smoker Additional Past Alcohol Use History / Comment(s): Pt. states "I drink socially a few times a week". Also states I really keep track of how many drinks I have but probably 5-6 each time I drink. I have a high tolerence". Past Drug Use History: Marijuana Medications and Allergies Home Medications Medication Instructions Recorded Confirmed Type [place] Carbonate [[place] 300 mg PO DAILY #30 tab 02/11/24 07/03/24 Rx Carbonate ER] QUEtiapine [SEROquel] 100 mg PO HS 30 Days #30 tablet 04/24/24 07/03/24 Rx Sertraline [Zoloft] 150 mg PO DAILY 30 Days #30 tab 04/24/24 07/03/24 Rx Albuterol Inhaler [Ventolin Hfa 2 puff INHALATION RT-Q4H PRN 07/03/24 07/03/24 History Inhaler] Allergies Allergy/AdvReac Type Severity Reaction Status Date / Time No Known Allergies Allergy Verified 07/03/24 12:09 Physical Exam Vitals: Vital Signs Temp Pulse Resp BP Pulse Ox 07/04/24 09:00 98.6 F 130 16 118/59 97 07/03/24 21:00 97.9 F 110 22 94/53 99 General: non toxic, no distress, appears stated age Derm: warm, dry Head: atraumatic, normocephalic, symmetric Eyes: EOMI, no lid lag, anicteric sclera, ENT: Nose and ears atraumatic, no thrush, no pharyngeal erythema Neck: No thyromegaly, no cervical lymphadenopathy, trachea midline, supple Mouth: no lip lesion, mucus membranes moist Cardiovascular: S1S2 reg, no murmur Lungs: clear to ascultation bilateral, no ronchi, no rales, no wheeze, no accessory muscle use Abdominal: soft, nontender to palpation, no guarding, no appreciable organomegaly, normal bowel sounds Ext: no gross muscle atrophy, Neuro: Moving all extremity spontaneously Psych: Alert, oriented, appropriate affect Results CBC & Chem 7: 07/04/24 07:29 07/04/24 07:29 Labs: Abnormal Lab Results - Last 24 Hours (Table) 07/04/24 07/04/24 Range/Units 07:29 07:29 WBC 10.83 H (4.50-10.00) 10*3/uL Immature Gran # 0.05 H (0.00-0.04) 10*3/uL Eosinophils # 0.43 H (0.04-0.35) 10*3/uL BUN 8 L (9-20) mg/dL HDL Cholesterol 33.10 L (40.00-60.00) mg/dL Assessment and Plan Assessment: #) Bipolar disorder. management as per psychiatry team. Noted to be on lithum at home however lithium level is undetectable. #) Tobacco use, max endorses vaping. nicotine patch while inpatient UDS and urine pregnany pending at the time of this writing Thank you for allowing [facility] to take care of this patient. please do not hesistate to contact us for any concerns. Time with Patient: Greater than 30
[2024-07-04 21:01] LABS: Appearance,Urine Clear (Clear); Bacteria,Urine Rare /hpf; Bilirubin,Urine Negative (Negative); Blood,Urine Negative (Negative); Color,Urine Yellow; Glucose,Urine (UA) Negative (Negative); Ketones,Urine Negative (Negative); Leukocyte Esterase,Urine Moderate (Negative); Mucus,Urine Rare /hpf; Nitrite,Urine Negative (Negative); PH, Urine 6.5 (5.0-8.0); Protein,Urine Negative (Negative); RBC,Urine 1 /hpf (0-5); Specific Gravity,Urine 1.021 (1.001-1.035); Squamous Epithelial Cell,Urine 2 /hpf (0-4); Urobilinogen,Urine <2.0 mg/dL (<2.0); WBC,Urine 8 /hpf (0-5)
[2024-07-04 21:18] LABS: Amphetamine Screen,Urine Not Detected (NotDetected); Cocaine Screen,Urine Not Detected (NotDetected); Opiate Screen,Urine Not Detected (NotDetected); Phencyclidine Screen,Urine Not Detected (NotDetected); Urn Cannabinoid Scrn Detected (NotDetected)
[2024-07-04 21:19] LABS: Barbiturate Screen,Urine Not Detected (NotDetected); Benzodiazepines Screen,Urine Detected (NotDetected); Methadone Screen, Urine Not Detected (NotDetected); Oxycodone Screen, Urine Not Detected (NotDetected); Tricyclic Antidepressant,Urine Detected (NotDetected)
[2024-07-05] MEDS: NICOTINE 21MG/24HR PATCH TRANSDERM SCH (08:37)
[2024-07-05 09:30] VITALS: BP 120/50; PULSE 112; RESP 20; TEMP 97.4
--- NOTE | 2024-07-05 11:58 | P.DS ---
Providers Date of admission: 07/03/24 01:14 Expected date of discharge: 07/05/24 Attending physician: Ivonne Lei MD Consults: 07/03/24 02:22 Consult Physician Routine Consulting Provider: Arcelia Guaman Consult Reason/Comments: medical managment Do you want consulting provider notified?: Yes Primary care physician: Stated None - Discharge Diagnosis(es) (1) Bipolar disorder current episode depressed Current Visit: Yes Status: Acute Priority: High (2) Nicotine dependence Current Visit: Yes Status: Acute Priority: Low (3) Post traumatic stress disorder (PTSD) Current Visit: Yes Status: Chronic Priority: Low (4) Cluster B personality disorder Current Visit: Yes Status: Chronic Priority: Medium (5) Autism spectrum disorder Current Visit: Yes Status: Chronic Priority: Low Hospital Course: Admission HPI: Admission note was completed by news writer "Patient presented to the hospital with suicidal thoughts. Per EPS, "Patient presents sitting up in stretcher, currently watching TV, and agreeable to speak to news writer. Patient appears to be disheveled and unkept, restricted affect, and restless fidgeting with her hands constantly. Patient is transgender female to male, and prefers he/him pronouns. Patient verbalizes "I need a medication change real bad" when asked about presenting problem. Patient states that he has been having increased paranoia, anxiety, and hallucinations. Describes feeling constantly paranoid like people are looking at him and judging him, expresses that he is worried that his mom is stalking him, and believed today that the police was outside to get him and felt like he could hear them outside talking when no one present. Verbalizes having auditory and visual hallucinations. Describes hearing mumbling/whispers but unable to make out any words/voices. Patient states he has been having visual and tactile hallucinations of bugs on his skin. Patient verbalizes being open with [facility] and had intake appointment completed. Verbalizes recently leaving [facility] due to moving to [place]. Patient states that he has history of multiple inpatients but most recent in 10/2022. Patient states having self harm recently to left breast and left forearm. Superficial lacerations noted to left forearm at this time. Patient verbalizes fleeting suicidal thoughts with no current plan. States he has a desire for "everything to stop". Patient verbalizes increased recent stressors including recent suspension from job, inability to pay bills, and running out of food and basic essentials. Patient denies homicidal ideations. Patient verbalizes poor appetite, inability to eat, and no motivation to eat. Describes fair to poor sleep. States when taking medications her sleep is fair and very poor without. States difficulty falling and staying asleep. Patient verbalizes social alcohol use, last drink 2 days ago. Patient verbalizes drinking less than monthly. Patient verbalizes frequent marijuana use, about 3-4x/week. Denies legal hx." Patient seen and evaluated on the unit and was agreeable with speaking to news writer in office. He states symptoms have been present for few weeks however were exacerbated after receiving a 3-day suspension from his job due to him calling the police on the client who had threatened him. He states feeling blindsided by his suspension, and patient has been journaling since last Tuesday to get their thoughts down. Patient was able to read this journal which describes a long history of depression with self harming behaviors. Patient reports cutting their wrist in their left breast and had developed suicidal ideations with a plan to cut their throat however they were able to communicate with friends who helped him. He reports decrease in appetite, hopelessness, poor sleep, low energy. Patient reports recently experiencing paranoia, auditory hallucinations that are described as hearing police sirens, visual hallucinations of seeing bugs in addition to tactile hallucinations. Patient denies any suicidal or homicidal ideations intent or plan. At this time patient denies any auditory hallucinations however does describe visual hallucinations described as seeing bugs. Patient denies any flight of ideas racing thoughts and increased in goal directed behavior. Patient does report a history of hypomania described as decreased need for sleep with excessive involvement in projects, racing thoughts that can last up to a week. Patient admits to using nicotine daily, social alcohol and cannabis a few times a week." Hospital course: Upon admission to the unit patient was directable and agreeable to commence treatment and signed adult voluntary form.. Patient got along well with other patients on the unit and followed unit protocol. Patient was compliant with the medications and denied any side effects throughout hospital course. Patient was resumed on Zoloft and this was increased to 200 mg daily for depression/anxiety, Seroquel was increased to 200 mg at bedtime for psychosis, Lithobid increased to 450 mg daily for mood stabilization. Saxman level returned at 0.2. Patient spoke of his stressors and engaged in therapy both group and individual. Patient was also seen by medical team for history and physical exam. Throughout the course of the hospitalization patient gradually improved with regards to mood, anxiety, sleep and became more future oriented with improved insight and judgment. On the day of discharge patient denied any suicidal or homicidal ideations intent or plan denied any auditory or visual hallucinations. The patient denied any access to guns or weapons. Patient denied any paranoia and did not endorse any delusions. Patient does not have a significant history of substance abuse and was counseled on abstaining from all substances including alcohol and marijuana. Patient was also counseled on the medications and need for regular compliance and was encouraged to follow-up with their outpatient appointment for mental health and also for primary care. Prior to discharge a family meeting will be arranged by nursing home social worker to answer any questions and ensure safety upon discharge including making sure that guns/weapons are either removed from the home or locked away. Patient to be discharged back home alone and will follow-up with [facility] Mental status exam: General Appearance: Patient appears to be stated age is alert, pleasant, and cooperative. Patient is in no acute distress and has fair hygiene and grooming. Patient is overweight Behavior: Patient is calmly seated without any agitated behavior. Speech: Patient's speech is fluent and nonpressured. Mood/Affect: Patient reports their mood is "better", affect is congruent and euthymic. Suicidality/Homicidality: Patient denies having any suicidal or homicidal ideation intent or plan. Perceptions: Patient denies any auditory or visual hallucinations. Though content/process: There is no evidence of any delusional thought content and thought process is linear and goal-directed. More future oriented Memory and concentration: AOX3, grossly intact for the purposes of this session. Can spell "WORLD" backwards correctly. Judgment and insight: Fair Impression: Bipolar disorder, current episode depressed Autism spectrum disorder Cluster B traits History of PTSD Nicotine dependence Plan: -Continue with discharge today as patient has improved and stabilized psychiatrically and is not currently an imminent threat to themself and/or others. -Continue medications: Zoloft 200 mg daily, Seroquel 200 mg at bedtime, Lithobid 450 mg daily -Patient was counseled on the need for medication compliance and appropriate follow-up at mental health and also primary care for medical issues. Patient verbalized understanding and agreed. -Social work to help coordinate patients discharge today arrange for and conduct family meeting to ensure safety upon discharge and answer any questions/concerns. also to ensure safe home environment that guns/weapons are either removed from the home or locked away. Social work also to arrange for patients follow up appointments with [facility] for psychiatric care along with follow up with primary care provider. -Patient counseled on abstaining from recreational drugs and marijuana and alcohol. Was informed/educated on the adverse effects on their physical and mental health. Patient verbally agreed and understood. -Patient was instructed to return to the hospital or seek immediate medical care if their psychiatric or medical symptoms do worsen or reoccur. Abnormal Labs 07/04/24 07/04/24 07/04/24 07:29 07:29 20:44 WBC 10.83 H Immature Gran # 0.05 H Eosinophils # 0.43 H BUN 8 L HDL Cholesterol 33.10 L Ur Leukocyte Esterase Moderate H Urine WBC 8 H Urine Bacteria Rare H Urine Mucus Rare H U Tricyclic Antidepress Detected H U Benzodiazepines Scrn Detected H U Marijuana (THC) Screen Detected H Allergies Allergy/AdvReac Type Severity Reaction Status Date / Time No Known Allergies Allergy Verified 07/03/24 12:09 Vital Signs Temp 97.4 F L 07/05/24 09:00 Pulse 112 H 07/05/24 09:00 Resp 20 07/05/24 09:00 BP 120/50 07/05/24 09:00 Pulse Ox 97 07/05/24 09:00 FiO2 Patient Condition at Discharge: Stable Plan - Discharge Summary Discharge Rx Participant: Yes New Discharge Prescriptions: New QUEtiapine [SEROquel] 200 mg PO HS 30 Days #30 tab Nicotine 21Mg/24Hr Patch [Habitrol] 1 patch TRANSDERM DAILY 30 Days #30 patch Saxman Carbonate ER [Lithobid] 450 mg PO DAILY 30 Days #30 tab Sertraline [Zoloft] 200 mg PO DAILY 30 Days #60 tab Discontinued Saxman Carbonate [Saxman Carbonate ER] 300 mg PO DAILY #30 tab Sertraline [Zoloft] 150 mg PO DAILY 30 Days #30 tab QUEtiapine [SEROquel] 100 mg PO HS 30 Days #30 tablet Albuterol Inhaler [Ventolin Hfa Inhaler] 2 puff INHALATION RT-Q4H PRN PRN Reason: Shortness Of Breath Discharge Medication List Saxman Carbonate ER [Lithobid] 450 mg PO DAILY 30 Days #30 tab 07/05/24 [Rx] Nicotine 21Mg/24Hr Patch [Habitrol] 1 patch TRANSDERM DAILY 30 Days #30 patch 07/05/24 [Rx] QUEtiapine [SEROquel] 200 mg PO HS 30 Days #30 tab 07/05/24 [Rx] Sertraline [Zoloft] 200 mg PO DAILY 30 Days #60 tab 07/05/24 [Rx] Follow up Appointment(s)/Referral(s): [facility] [place] [Outside] - 07/10/24 3:00 pm ( 07-10-24 [facility] - 1 Week Patient Instructions/Handouts: How to Stop Smoking (DC), Bipolar Disorder (DC) Activity/Diet/Wound Care/Special Instructions: [facility] Discharge Info Avoid the use of street drugs and alcohol. Take all medications as prescribed. When you are in need of refills on your medications, please contact your outpatient medical provider and/or outpatient psychiatrist. Please go to your [facility] for aftercare treatment. If symptoms return or become worse, call the crisis line at or and/or visit the nearest emergency room for assistance. National Suicide and Crisis Lifeline - call or text 818 Discharge Disposition: HOME SELF-CARE
== END 2024-07-05 13:45 | disposition home or self-care (01) | DRG 753 ==
LOC: EDSEX → EC 20:16 → EDSEX 07-03 01:14 → 3MHU 07-03 01:14
PROVIDERS: ADMIT Psychiatry & Neurology Psychiatry; ATTEND Psychiatry & Neurology Psychiatry
DX: F31.30 Bipolar disorder, current episode depressed, mild or moderate severity, unspecified (principal); F22 Delusional disorders; F60.89 Other specific personality disorders; R45.88 Nonsuicidal self-harm; F17.290 Nicotine dependence, other tobacco product, uncomplicated; J45.909 Unspecified asthma, uncomplicated; F41.9 Anxiety disorder, unspecified; F43.10 Post-traumatic stress disorder, unspecified; F90.9 Attention-deficit hyperactivity disorder, unspecified type; F64.0 Transsexualism; F84.0 Autistic disorder; S51.812A Laceration without foreign body of left forearm, initial encounter; E66.3 Overweight; S21.012A Laceration without foreign body of left breast, initial encounter; R45.851 Suicidal ideations; Z79.899 Other long term (current) drug therapy; Z91.51 Personal history of suicidal behavior; Z71.51 Drug abuse counseling and surveillance of drug abuser; Z71.41 Alcohol abuse counseling and surveillance of alcoholic
CPT/HCPCS: 80053; 80061; 80178; 80306; 81001; 81025; 82075; 83036; 84443; 85025; 87636; 99285

== ENCOUNTER 2024-07-10 22:41 | Inpatient (IN) | payer OTHER ==
[2024-07-10 23:03] LABS: Basophils # (A) 0.07 10*3/uL (0.00-0.10); Basophils % (A) 0.7 %; Eosinophils # (A) 0.32 10*3/uL (0.04-0.35); Eosinophils % (A) 3.2 %; HCT 36.6 % (37.2-46.3); HGB 11.8 g/dL (12.0-15.0); Lymphocytes # (A) 2.68 10*3/uL (0.90-5.00); MCH 27.2 pg (27.0-32.0); MCHC 32.2 g/dL (32.0-37.0); MCV 84.3 fL (80.0-97.0); Monocytes # (A) 0.78 10*3/uL (0.20-1.00); Monocytes % (A) 7.9 %; Neutrophils # (A) 6.03 10*3/uL (1.80-7.70); Neutrophils % (A) 60.9 %; Platelet Count 252 10*3/uL (140-440); RBC 4.34 10*6/uL (4.10-5.20); RDW 17.1 % (11.5-14.5); WBC 9.91 10*3/uL (4.50-10.00)
--- NOTE | 2024-07-10 23:03 | ED ---
General Adult HPI - General Source: EMS Mode of arrival: EMS Limitations: altered mental status (Somnolent but arousable) - History of Present Illness Onset/Timin -: hour(s) Severity scale (1-10): 0 Consistency: constant Improves with: none Worsens with: none Treatments Prior to Arrival: none <Gonzalez Leblanc - Last Filed: 07/10/24 22:57> <Austin Lei - Last Filed: 07/11/24 14:07> - General Chief complaint: Psychiatric Symptoms Stated complaint: SI,Overdose Time Seen by Provider: 07/10/24 22:47 - History of Present Illness Initial comments: Patient is a 18-year-old who presents to have evaluation after overdose. The patient states that she was very stressed and took probably about a dozen of her pills. She is not certain the exact ratio pills but she took combination of Seroquel, Zoloft, and lithium. She states she took mostly Seroquel but not sure exact numbers. Patient denies complaints but very somnolent. (Gonzalez Leblanc) - Related Data Previous Rx's Medication Instructions Recorded [place] Carbonate ER [Lithobid] 450 mg PO DAILY 30 Days #30 tab 07/05/24 Nicotine 21Mg/24Hr Patch [Habitrol] 1 patch TRANSDERM DAILY 30 Days 07/05/24 #30 patch QUEtiapine [SEROquel] 200 mg PO HS 30 Days #30 tab 07/05/24 Sertraline [Zoloft] 200 mg PO DAILY 30 Days #60 tab 07/05/24 Allergies Allergy/AdvReac Type Severity Reaction Status Date / Time No Known Allergies Allergy Verified 07/11/24 09:32 Review of Systems ROS Other: All systems not noted in ROS Statement are negative. Limitations: ROS unobtainable due to patients medical condition (Somnolent but arousable) Constitutional: Denies: fever Respiratory: Denies: cough, dyspnea Cardiovascular: Denies: chest pain, palpitations, orthopnea, syncope Gastrointestinal: Denies: abdominal pain, nausea, vomiting, diarrhea Genitourinary: Denies: dysuria Musculoskeletal: Denies: back pain Skin: Denies: rash Neurological: Denies: headache Psychiatric: Reports: depression, suicidal thoughts <Gonzalez Leblanc - Last Filed: 07/10/24 22:57> ROS Other: All systems not noted in ROS Statement are negative. <Austin Lei - Last Filed: 07/11/24 14:07> ROS Statement: Those systems with pertinent positive or pertinent negative responses have been documented in the HPI. Past Medical History Past Medical History: No Reported History History of Any Multi-Drug Resistant Organisms: None Reported Past Surgical History: No Surgical Hx Reported Past Psychological History: ADD/ADHD, Anxiety, Depression, PTSD Smoking Status: Current every day smoker Past Drug Use History: Marijuana <RalphGonzalez weber - Last Filed: 07/10/24 22:57> General Exam General appearance: other (Somnolent but arousable) Head exam: Present: atraumatic, normocephalic Eye exam: Present: normal appearance. Absent: scleral icterus, conjunctival injection ENT exam: Present: normal oropharynx Neck exam: Present: normal inspection, full ROM. Absent: tenderness Respiratory exam: Present: normal lung sounds bilaterally. Absent: respiratory distress, wheezes, rales, rhonchi, stridor, accessory muscle use Cardiovascular Exam: Present: tachycardia, normal heart sounds. Absent: systolic murmur, diastolic murmur, rubs, gallop GI/Abdominal exam: Present: soft. Absent: distended, tenderness, guarding, rebound, rigid, mass Extremities exam: Present: normal inspection, normal capillary refill. Absent: pedal edema, calf tenderness Back exam: Present: normal inspection Neurological exam: Present: altered (Somnolent but arousable), CN II-XII intact. Absent: motor sensory deficit Skin exam: Present: warm, dry, intact, normal color. Absent: rash <RalphGonzalez weber - Last Filed: 07/10/24 22:57> Course Vital Signs 07/10/24 07/11/24 07/11/24 22:45 00:38 01:44 Temperature 98.0 F Pulse Rate 147 H 124 H 123 H Respiratory 15 16 16 Rate Blood Pressure 130/82 99/60 106/67 O2 Sat by Pulse 100 98 Oximetry 07/11/24 07/11/24 07/11/24 05:01 09:30 12:55 Temperature 98.7 F 98.7 F Pulse Rate 116 H 112 H 67 Respiratory 16 16 17 Rate Blood Pressure 114/72 109/70 98/56 O2 Sat by Pulse 96 96 96 Oximetry EKG Findings - EKG Results: EKG: interpreted by ERMD, normal axis - Dysrhythmias: Sinus rhythms and dysrhythmias: sinus tachycardia (Rate approximately 150 bpm) - Blocks, [place], Hypertrophy, ST Abn: AV and intraventricular conduction: right bundle branch block (fixed/intermittent, complete/incomplete) (Incomplete) <RalphtiaGonzalez - Last Filed: 07/10/24 22:57> Medical Decision Making - Lab Data Result diagrams: 07/10/24 22:56 07/10/24 22:56 <Austin Lei - Last Filed: 07/11/24 14:07> - Medical Decision Making Was pt. sent in by a medical professional or institution (, PA, DIRECTOR OF PAYROLL, urgent c are, hospital, or fdc...) When possible be specific @ -No Did you speak to anyone other than the patient for history (EMS, parent, family, police, friend...)? What history was obtained from this source @ -No Did you review nursing and triage notes (agree or disagree)? Why? @ -I reviewed and agree with nursing and triage notes Were old charts reviewed (outside hosp., previous admission, EMS record, old EKG, old radiological studies, urgent care reports/EKG's, fdc records)? Report findings @ -No old charts were reviewed Differential Diagnosis (chest pain, altered mental status, abdominal pain women, abdominal pain men, vaginal bleeding, weakness, fever, dyspnea, syncope, headache, dizziness, GI bleed, back pain, seizure, CVA, palpatations, mental health, musculoskeletal)? @ -Differential Mental Health Depression, anxiety, bipolar, psychosis, schizophrenia, borderline personality, situational depression, adjustment disorder, behavioral disorder, brain tumor, malingering, substance abuse, encephalopathy, medication reaction, dementia, hypothyroidism, degenerative neurologic disorder, lupus.... This is not meant to be all-inclusive list EKG interpreted by me (3pts min.). @ -As above X-rays interpreted by me (1pt min.). @ -None done CT interpreted by me (1pt min.). @ -None done U/S interpreted by me (1pt. min.). @ -None done What testing was considered but not performed or refused? (CT, X-rays, U/S, labs)? Why? @ -None What meds were considered but not given or refused? Why? @ -None Did you discuss the management of the patient with other professionals (professionals i.e. , PA, DIRECTOR OF PAYROLL, lab, RT, psych nurse, sexual assault social worker, glass worker, teacher, naval gunfire liaison officer, rehabilitation caseworker)? Give summary @ -Case was discussed with Dr. Keith who will admit covering hospital call Was smoking cessation discussed for >3mins.? @ -No Was critical care preformed (if so, how long)? @ -No Were there social determinants of health that impacted care today? How? (Homelessness, low income, unemployed, alcoholism, drug addiction, transportation, low edu. Level, literacy, decrease access to med. care, senior living, rehab)? @ -No Was there de-escalation of care discussed even if they declined (Discuss DNR or withdrawal of care, Hospice)? DNR status @ -No What co-morbidities impacted this encounter? (DM, HTN, Smoking, COPD, CAD, Cancer, CVA, ARF, Chemo, Hep., AIDS, mental health diagnosis, sleep apnea, morbid obesity)? @ -None Was patient admitted / discharged? Hospital course, mention meds given and route, prescriptions, significant lab abnormalities, going to OR and other pertinent info. @ -Patient presents with overdose. Patient admits she did take extra lithium a s well. [place] level continues to rise despite time. Poison control was contacted who recommends medical admission with normal saline at 150 and recheck lithium level again in 6 hours. Patient reevaluated and updated. Admission orders written. Undiagnosed new problem with uncertain prognosis? @ -No Drug Therapy requiring intensive monitoring for toxicity (Heparin, Nitro, Insulin, Cardizem)? @ -No Were any procedures done? @ -No Diagnosis/symptom? @ -[place] overdose Acute, or Chronic, or Acute on Chronic? @ -Acute Uncomplicated (without systemic symptoms) or Complicated (systemic symptoms)? @ -Default Side effects of treatment? @ -No Exacerbation, Progression, or Severe Exacerbation? @ -No Poses a threat to life or bodily function? How? (Chest pain, [place], DC, pneumonia, PE, COPD, DKA, ARF, appy, cholecystitis, CVA, Diverticulitis, Homicidal, Suicidal, threat to staff... and all critical care pts) @ -No (Austin Lei) - Lab Data Lab Results 0407/10/24 07/10/24 Range/Units 22:56 22:56 22:56 WBC 9.91 (4.50-10.00) 10*3/uL RBC 4.34 (4.10-5.20) 10*6/uL Hgb 11.8 L (12.0-15.0) g/dL Hct 36.6 L (37.2-46.3) % MCV 84.3 (80.0-97.0) fL MCH 27.2 (27.0-32.0) pg MCHC 32.2 (32.0-37.0) g/dL Plt Count 252 (140-440) 10*3/uL MPV 10.0 (9.5-12.2) fL Immature Gran % (Auto) 0.3 % Neutrophils % 60.9 % Lymphocytes % 27.0 % Monocytes % 7.9 % Eosinophils % 3.2 % Basophils % 0.7 % Immature Gran # 0.03 (0.00-0.04) 10*3/uL Neutrophils # 6.03 (1.80-7.70) 10*3/uL Lymphocytes # 2.68 (0.90-5.00) 10*3/uL Monocytes # 0.78 (0.20-1.00) 10*3/uL Eosinophils # 0.32 (0.04-0.35) 10*3/uL Basophils # 0.07 (0.00-0.10) 10*3/uL Sodium 139 (137-145) mmol/L Potassium 3.4 L (3.5-5.1) mmol/L Chloride 106 (98-107) mmol/L Carbon Dioxide 21 L (22-30) mmol/L Anion Gap 12 mmol/L BUN 6 L (7-17) mg/dL Creatinine 0.62 (0.52-1.04) mg/dL Est GFR (CKD-EPI)AfAm >90 (>60 ml/min/1.73 sqM) Est GFR (CKD-EPI)NonAf >90 (>60 ml/min/1.73 sqM) Glucose 130 H (74-99) mg/dL Lactic Ac Sepsis Rflx Plasma Lactic Acid Ranjith 2.6 H* (0.7-2.0) mmol/L Calcium 9.3 (8.4-10.2) mg/dL Total Bilirubin 0.3 (0.2-1.3) mg/dL AST 20 (14-36) U/L ALT 21 (4-34) U/L Alkaline Phosphatase 106 (38-126) U/L Total Protein 6.6 (6.3-8.2) g/dL Albumin 3.7 (3.5-5.0) g/dL Urine HCG, Qual (Not Detectd) Salicylates <1.0 mg/dL Urine Opiates Screen (NotDetected) Ur Oxycodone Screen (NotDetected) Urine Methadone Screen (NotDetected) Acetaminophen <10.0 ug/mL Ur Barbiturates Screen (NotDetected) U Tricyclic Antidepress (NotDetected) Ur Phencyclidine Scrn (NotDetected) Ur Amphetamines Screen (NotDetected) U Methamphetamines Scrn (NotDetected) U Benzodiazepines Scrn (NotDetected) [place] 0.7 mmol/L Urine Cocaine Screen (NotDetected) U Marijuana (THC) Screen (NotDetected) Serum Alcohol <10 mg/dL SARS-CoV-2 (PCR) (Not Detectd) 07/10/24 07/11/24 07/11/24 Range/Units 23:33 01:46 05:09 WBC (4.50-10.00) 10*3/uL RBC (4.10-5.20) 10*6/uL Hgb (12.0-15.0) g/dL Hct (37.2-46.3) % MCV (80.0-97.0) fL MCH (27.0-32.0) pg MCHC (32.0-37.0) g/dL Plt Count (140-440) 10*3/uL MPV (9.5-12.2) fL Immature Gran % (Auto) % Neutrophils % % Lymphocytes % % Monocytes % % Eosinophils % % Basophils % % Immature Gran # (0.00-0.04) 10*3/uL Neutrophils # (1.80-7.70) 10*3/uL Lymphocytes # (0.90-5.00) 10*3/uL Monocytes # (0.20-1.00) 10*3/uL Eosinophils # (0.04-0.35) 10*3/uL Basophils # (0.00-0.10) 10*3/uL Sodium (137-145) mmol/L Potassium (3.5-5.1) mmol/L Chloride (98-107) mmol/L Carbon Dioxide (22-30) mmol/L Anion Gap mmol/L BUN (7-17) mg/dL Creatinine (0.52-1.04) mg/dL Est GFR (CKD-EPI)AfAm (>60 ml/min/1.73 sqM) Est GFR (CKD-EPI)NonAf (>60 ml/min/1.73 sqM) Glucose (74-99) mg/dL Lactic Ac Sepsis Rflx Y Plasma Lactic Acid Ranjith 1.2 (0.7-2.0) mmol/L Calcium (8.4-10.2) mg/dL Total Bilirubin (0.2-1.3) mg/dL AST (14-36) U/L ALT (4-34) U/L Alkaline Phosphatase (38-126) U/L Total Protein (6.3-8.2) g/dL Albumin (3.5-5.0) g/dL Urine HCG, Qual (Not Detectd) Salicylates mg/dL Urine Opiates Screen (NotDetected) Ur Oxycodone Screen (NotDetected) Urine Methadone Screen (NotDetected) Acetaminophen ug/mL Ur Barbiturates Screen (NotDetected) U Tricyclic Antidepress (NotDetected) Ur Phencyclidine Scrn (NotDetected) Ur Amphetamines Screen (NotDetected) U Methamphetamines Scrn (NotDetected) U Benzodiazepines Scrn (NotDetected) [place] 1.5 mmol/L Urine Cocaine Screen (NotDetected) U Marijuana (THC) Screen (NotDetected) Serum Alcohol mg/dL SARS-CoV-2 (PCR) (Not Detectd) 07/11/24 07/11/24 07/11/24 Range/Units 09:17 09:17 10:40 WBC (4.50-10.00) 10*3/uL RBC (4.10-5.20) 10*6/uL Hgb (12.0-15.0) g/dL Hct (37.2-46.3) % MCV (80.0-97.0) fL MCH (27.0-32.0) pg MCHC (32.0-37.0) g/dL Plt Count (140-440) 10*3/uL MPV (9.5-12.2) fL Immature Gran % (Auto) % Neutrophils % % Lymphocytes % % Monocytes % % Eosinophils % % Basophils % % Immature Gran # (0.00-0.04) 10*3/uL Neutrophils # (1.80-7.70) 10*3/uL Lymphocytes # (0.90-5.00) 10*3/uL Monocytes # (0.20-1.00) 10*3/uL Eosinophils # (0.04-0.35) 10*3/uL Basophils # (0.00-0.10) 10*3/uL Sodium (137-145) mmol/L Potassium (3.5-5.1) mmol/L Chloride (98-107) mmol/L Carbon Dioxide (22-30) mmol/L Anion Gap mmol/L BUN (7-17) mg/dL Creatinine (0.52-1.04) mg/dL Est GFR (CKD-EPI)AfAm (>60 ml/min/1.73 sqM) Est GFR (CKD-EPI)NonAf (>60 ml/min/1.73 sqM) Glucose (74-99) mg/dL Lactic Ac Sepsis Rflx Plasma Lactic Acid Ranjith (0.7-2.0) mmol/L Calcium (8.4-10.2) mg/dL Total Bilirubin (0.2-1.3) mg/dL AST (14-36) U/L ALT (4-34) U/L Alkaline Phosphatase (38-126) U/L Total Protein (6.3-8.2) g/dL Albumin (3.5-5.0) g/dL Urine HCG, Qual Not Detected (Not Detectd) Salicylates mg/dL Urine Opiates Screen Not Detected (NotDetected) Ur Oxycodone Screen Not Detected (NotDetected) Urine Methadone Screen Not Detected (NotDetected) Acetaminophen ug/mL Ur Barbiturates Screen Not Detected (NotDetected) U Tricyclic Antidepress Detected H (NotDetected) Ur Phencyclidine Scrn Not Detected (NotDetected) Ur Amphetamines Screen Not Detected (NotDetected) U Methamphetamines Scrn Not Detected (NotDetected) U Benzodiazepines Scrn Not Detected (NotDetected) [place] mmol/L Urine Cocaine Screen Not Detected (NotDetected) U Marijuana (THC) Screen Not Detected (NotDetected) Serum Alcohol mg/dL SARS-CoV-2 (PCR) Not Detected (Not Detectd) 07/11/24 Range/Units 12:05 WBC (4.50-10.00) 10*3/uL RBC (4.10-5.20) 10*6/uL Hgb (12.0-15.0) g/dL Hct (37.2-46.3) % MCV (80.0-97.0) fL MCH (27.0-32.0) pg MCHC (32.0-37.0) g/dL Plt Count (140-440) 10*3/uL MPV (9.5-12.2) fL Immature Gran % (Auto) % Neutrophils % % Lymphocytes % % Monocytes % % Eosinophils % % Basophils % % Immature Gran # (0.00-0.04) 10*3/uL Neutrophils # (1.80-7.70) 10*3/uL Lymphocytes # (0.90-5.00) 10*3/uL Monocytes # (0.20-1.00) 10*3/uL Eosinophils # (0.04-0.35) 10*3/uL Basophils # (0.00-0.10) 10*3/uL Sodium (137-145) mmol/L Potassium (3.5-5.1) mmol/L Chloride (98-107) mmol/L Carbon Dioxide (22-30) mmol/L Anion Gap mmol/L BUN (7-17) mg/dL Creatinine (0.52-1.04) mg/dL Est GFR (CKD-EPI)AfAm (>60 ml/min/1.73 sqM) Est GFR (CKD-EPI)NonAf (>60 ml/min/1.73 sqM) Glucose (74-99) mg/dL Lactic Ac Sepsis Rflx Plasma Lactic Acid Ranjith (0.7-2.0) mmol/L Calcium (8.4-10.2) mg/dL Total Bilirubin (0.2-1.3) mg/dL AST (14-36) U/L ALT (4-34) U/L Alkaline Phosphatase (38-126) U/L Total Protein (6.3-8.2) g/dL Albumin (3.5-5.0) g/dL Urine HCG, Qual (Not Detectd) Salicylates mg/dL Urine Opiates Screen (NotDetected) Ur Oxycodone Screen (NotDetected) Urine Methadone Screen (NotDetected) Acetaminophen ug/mL Ur Barbiturates Screen (NotDetected) U Tricyclic Antidepress (NotDetected) Ur Phencyclidine Scrn (NotDetected) Ur Amphetamines Screen (NotDetected) U Methamphetamines Scrn (NotDetected) U Benzodiazepines Scrn (NotDetected) [place] 2.2 H* mmol/L Urine Cocaine Screen (NotDetected) U Marijuana (THC) Screen (NotDetected) Serum Alcohol mg/dL SARS-CoV-2 (PCR) (Not Detectd) Disposition <Gonzalez Leblanc - Last Filed: 07/10/24 22:57> Is patient prescribed a controlled substance at d/c from ED?: No Time of Disposition: 14:07 <Austin Lei - Last Filed: 07/11/24 14:07> Clinical Impression: [place] overdose Disposition: ADMITTED IP TO THIS HOSP Referrals: None,Stated [Primary Care Provider] - 1-2 days
[2024-07-10] MEDS: SODIUM CHLORIDE 0.9% 1,000 ML IV STA (23:08)
[2024-07-10 23:30] LABS: ALT 21 U/L (4-34); AST 20 U/L (14-36); Acetaminophen <10.0 ug/mL; African American GFR (CKD) >90 (>60 ml/min/1.73 sqM); Albumin 3.7 g/dL (3.5-5.0); Alcohol <10 mg/dL; Alkaline Phosphatase 106 U/L (38-126); Anion Gap 12 mmol/L; Blood Urea Nitrogen 6 mg/dL (7-17); Calcium 9.3 mg/dL (8.4-10.2); Carbon Dioxide 21 mmol/L (22-30); Chloride 106 mmol/L (98-107); Glucose 130 mg/dL (74-99); Lithium 0.7 mmol/L; Non-African American GFR(CKD) >90 (>60 ml/min/1.73 sqM); Potassium 3.4 mmol/L (3.5-5.1); Salicylate <1.0 mg/dL; Sodium 139 mmol/L (137-145); Total Bilirubin 0.3 mg/dL (0.2-1.3); Total Protein 6.6 g/dL (6.3-8.2)
[2024-07-11] MEDS: SODIUM CHLORIDE 0.9% 1,000 ML IV ONE ×2 (00:48→11:01)
--- NOTE | 2024-07-11 01:04 | XR ---
EXAM: XR Chest, 1 View CLINICAL HISTORY: ITS.REASON XR Reason: overdose TECHNIQUE: Frontal view of the chest. COMPARISON: No relevant prior studies available. FINDINGS: Lungs: Unremarkable. No consolidation. Pleural space: Unremarkable. No pneumothorax. Heart: Cardiomegaly. Mediastinum: Unremarkable. Bones/joints: Unremarkable. IMPRESSION: No acute findings in the chest.
[2024-07-11 10:11] LABS: Amphetamine Screen,Urine Not Detected (NotDetected); Barbiturate Screen,Urine Not Detected (NotDetected); Benzodiazepines Screen,Urine Not Detected (NotDetected); Cocaine Screen,Urine Not Detected (NotDetected); Methadone Screen, Urine Not Detected (NotDetected); Opiate Screen,Urine Not Detected (NotDetected); Oxycodone Screen, Urine Not Detected (NotDetected); Phencyclidine Screen,Urine Not Detected (NotDetected); Tricyclic Antidepressant,Urine Detected (NotDetected); Urn Cannabinoid Scrn Not Detected (NotDetected)
[2024-07-11] MEDS ORDERED: ACETAMINOPHEN TAB 325 MG TAB PO PRN (13:52)
[2024-07-11] MEDS ORDERED: LORazepam 2 MG/ML INJ IV PRN (13:56)
[2024-07-11] MEDS: SODIUM CHLORIDE 0.9% 1,000 ML IV SCH (14:02)
--- NOTE | 2024-07-11 14:05 | P.HPIM ---
History of Present Illness This is a pleasant 18 years old female with past medical history of depression and suicidal ideation. Presents to the hospital with drug overdose. 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 Patient still thinks she took about 12 pills of them. Then she regretted and decided to come to the emergency room. In the emergency room her lithium level was seen trending up so poison control was contacted by emergency room staff and they recommended normal saline at 150 mL and keep checking lithium level every 6 hours till start trending down onto consecutive samples as per staff. Currently patient fully awake oriented denies any specific symptoms no chest pain or dyspnea. No abdominal pain vomiting or diarrhea. No urinary complaints like burning or change in frequency. She denies headache dizziness weakness or numbness She vapes nicotine and she was counseled to quit and she agrees but also she agrees nicotine patch She drinks alcohol occasionally, no illicit drugs. She is hemodynamically stable and afebrile CBC and labs reviewed showing hemoglobin 11.8 potassium 3.4. Creatinine normal liver enzymes not elevated COVID test was negative Urine drug test is negative [place] level was trending up 0.7, 1.5, 2.2 Chest x-ray is negative for acute process EKG showing a flutter tachycardia with a rate of [address]-T changes Patient agrees to be admitted to the medical service with psych evaluation Review of Systems Review of systems CONSTITUTIONAL: No fever, no malaise, no fatigue. HEENT: No recent visual problems or hearing problems. Denied any sore throat. CARDIOVASCULAR: No orthopnea, PND, no palpitations, no syncope. PULMONARY: No shortness of breath, no cough, no hemoptysis. GASTROINTESTINAL: No diarrhea, no nausea, no vomiting, no abdominal pain. Normoactive bowel sounds. NEUROLOGICAL: No headaches, no weakness, no numbness. HEMATOLOGICAL: Denies any bleeding or petechiae. GENITOURINARY: Denies any burning micturition, frequency, or urgency. MUSCULOSKELETAL/RHEUMATOLOGICAL: Denies any joint pain, swelling, or any muscle pain. ENDOCRINE: Denies any polyuria or polydipsia. Past Medical History Past Medical History: No Reported History History of Any Multi-Drug Resistant Organisms: None Reported Past Surgical History: No Surgical Hx Reported Past Psychological History: ADD/ADHD, Anxiety, Depression, PTSD Smoking Status: Current every day smoker Past Drug Use History: Marijuana Medications and Allergies Home Medications Medication Instructions Recorded Confirmed Type [place] Carbonate ER [Lithobid] 450 mg PO DAILY 30 Days #30 tab 07/05/24 07/11/24 Rx Nicotine 21Mg/24Hr Patch [Habitrol] 1 patch TRANSDERM DAILY 30 Days 07/05/24 07/11/24 Rx #30 patch QUEtiapine [SEROquel] 200 mg PO HS 30 Days #30 tab 07/05/24 07/11/24 Rx Sertraline [Zoloft] 200 mg PO DAILY 30 Days #60 tab 07/05/24 07/11/24 Rx Allergies Allergy/AdvReac Type Severity Reaction Status Date / Time No Known Allergies Allergy Verified 07/11/24 09:32 Physical Exam Vitals: Vital Signs Temp Pulse Resp BP Pulse Ox 07/11/24 12:55 98.7 F 67 17 98/56 96 07/11/24 09:30 98.7 F 112 H 16 109/70 96 07/11/24 05:01 116 H 16 114/72 96 07/11/24 01:44 123 H 16 106/67 07/11/24 00:38 124 H 16 99/60 98 07/10/24 22:45 98.0 F 147 H 15 130/82 100 Intake and Output 07/10/24 07/11/24 07/11/24 22:59 06:59 14:59 Other: Weight 124.738 kg -GENERAL: The patient is alert and oriented x3, not in any acute distress. Well developed, well nourished. Obese HEENT: Pupils are round and equally reacting to light. EOMI. No scleral icterus. No conjunctival pallor. Normocephalic, atraumatic. No pharyngeal erythema. No t hyromegaly. CARDIOVASCULAR: S1 and S2 present. No murmurs, rubs, or gallops. PULMONARY: Chest is clear to auscultation, no wheezing , no crackles. ABDOMEN: Soft, nontender, nondistended, normoactive bowel sounds. No palpable organomegaly. MUSCULOSKELETAL: No joint swelling or deformity. EXTREMITIES: No cyanosis, clubbing, or pedal edema. NEUROLOGICAL: Gross neurological examination did not reveal any focal deficits. SKIN: No rashes. no petechiae. Results CBC & Chem 7: 07/10/24 22:56 07/10/24 22:56 Labs: Abnormal Lab Results - Last 24 Hours (Table) 07/10/24 07/10/24 07/10/24 Range/Units 22:56 22:56 22:56 Hgb 11.8 L (12.0-15.0) g/dL Hct 36.6 L (37.2-46.3) % Potassium 3.4 L (3.5-5.1) mmol/L Carbon Dioxide 21 L (22-30) mmol/L BUN 6 L (7-17) mg/dL Glucose 130 H (74-99) mg/dL Plasma Lactic Acid Ranjith 2.6 H* (0.7-2.0) mmol/L U Tricyclic Antidepress (NotDetected) [place] mmol/L 07/11/24 07/11/24 Range/Units 09:17 12:05 Hgb (12.0-15.0) g/dL Hct (37.2-46.3) % Potassium (3.5-5.1) mmol/L Carbon Dioxide (22-30) mmol/L BUN (7-17) mg/dL Glucose (74-99) mg/dL Plasma Lactic Acid Ranjith (0.7-2.0) mmol/L U Tricyclic Antidepress Detected H (NotDetected) [place] 2.2 H* mmol/L Assessment and Plan Assessment: Depression with suicidal attempt with drug overdose with lithium and Seroquel pills after she was almost going to lose her job [place] toxicity Atrial flutter Nicotine dependence via vaping Obesity with BMI of 50 Mild anemia Plan: Continue checking lithium level every 6 hours Stop lithium Start normal saline 150 mL/h Monitor electrolytes and renal function Telemetry monitoring Cardiology consult for her arrhythmia Psychiatrist consult Suicidal precaution, discussed with staff will keep sitter at bedside, discussed with the staff patient cannot leave AMA till cleared by psychiatrist however patient was agreeable to stay Ativan as needed in case she develops seizure or any anxiety Labs and medication were reviewed.. Continue same treatment. Continue with symptomatic treatment. Resume home medication. Monitor labs and vitals. DVT and GI prophylaxis. Further recommendations as per clinical course of the patient DVT prophylaxis and DVT prophylaxis Prognosis is guarded
[2024-07-11] MEDS ORDERED: NALOXONE 0.4 MG/ML 1 ML VIAL IV PRN (14:08)
[2024-07-11] MEDS: POTASSIUM CHLORIDE ER 20 MEQ TAB.ER PO STA (15:51)
[2024-07-11 18:24] LABS: African American GFR (CKD) >90 (>60 ml/min/1.73 sqM); Anion Gap 6 mmol/L; Blood Urea Nitrogen 4 mg/dL (7-17); Calcium 9.5 mg/dL (8.4-10.2); Carbon Dioxide 25 mmol/L (22-30); Chloride 108 mmol/L (98-107); Glucose 77 mg/dL (74-99); Lithium 1.5 mmol/L; Non-African American GFR(CKD) >90 (>60 ml/min/1.73 sqM); Potassium 4.2 mmol/L (3.5-5.1); Sodium 139 mmol/L (137-145)
[2024-07-11 18:43] LABS: HCG,Qualitative Serum Not Detected
[2024-07-12] MEDS ORDERED: LORazepam 1 MG/0.5 ML VIAL IV PRN (03:00)
[2024-07-12 03:20] VITALS: TEMP 98.1
[2024-07-12 08:32] LABS: African American GFR (CKD) >90 (>60 ml/min/1.73 sqM); Anion Gap 6 mmol/L; Blood Urea Nitrogen 7 mg/dL (7-17); Calcium 9.4 mg/dL (8.4-10.2); Carbon Dioxide 25 mmol/L (22-30); Chloride 107 mmol/L (98-107); Glucose 89 mg/dL (74-99); Non-African American GFR(CKD) >90 (>60 ml/min/1.73 sqM); Potassium 4.1 mmol/L (3.5-5.1); Sodium 138 mmol/L (137-145)
[2024-07-12] MEDS: NICOTINE 21MG/24HR PATCH TRANSDERM SCH (08:38)
[2024-07-12 08:45] VITALS: RESP 16
--- NOTE | 2024-07-12 11:50 | P.CRDCN ---
History of Present Illness History of present illness: HISTORY OF PRESENT ILLNESS: This is a 18-year-old female with a past medical history significant for nicotine dependence and obesity. Patient does not follow with a dietetic aide. We have been asked to see the patient in consultation for atrial flutter. Patient examined at the bedside. Patient is admitted to the hospital secondary to suicide attempt with lithium overdose. Patient currently denies any chest pain or pressure. She denies any shortness of breath. EKG was read out as atrial flutter which prompted cardiology consultation. However upon review EKG and bedside telemetry reveals sinus mechanism with no arrhythmias noted. REVIEW OF SYSTEMS: At the time of my exam: CONSTITUTIONAL: Denies fever or chills. HEENT: Denies blurred vision, vision changes, or eye pain. Denies hemoptysis CARDIOVASCULAR: Denies chest pain. Denies orthopnea. Denies PND. Denies palpitations RESPIRATORY: Denies shortness of breath. GASTROINTESTINAL: Denies abdominal pain. Denies nausea or vomiting. HEMATOLOGIC: Denies bleeding disorders. GENITOURINARY: Denies any blood in urine. SKIN: Denies pruitis. Denies rash. PHYSICAL EXAM: VITAL SIGNS: Reviewed. GENERAL: Well-developed in no acute distress. HEENT: Head is normocephalic. Pupils are equal, round. Sclerae anicteric. Mucous membranes of the mouth are moist. Neck supple. No JVD or thyromegaly LUNGS: Respirations even and unlabored. Lungs essentially clear to auscultation bilaterally. HEART: Regular rate and rhythm. S1 and S2 heard. ABDOMEN: Soft. Nondistended. Nontender. EXTREMITIES: Normal range of motion. No clubbing or cyanosis. Peripheral pulses intact. No lower extremity edema NEUROLOGIC: Awake and alert. Oriented x 3. ASSESSMENT: Suicide attempt with lithium overdose Sinus tachycardia Atrial flutter, ruled out Nicotine dependence Morbid obesity: BMI 50.7 PLAN: EKG and telemetry reveals sinus mechanism with no evidence of atrial flutter Obtain 2D echo to assess cardiac structure and function If 2D echo is unremarkable, no further recommendations from a cardiac standpoint Nurse practitioner note has been reviewed by physician. Signing provider agrees with the documented findings, assessment, and plan of care documented by RETAIL ACCOUNT EXECUTIVE as a scribe. Past Medical History Past Medical History: No Reported History History of Any Multi-Drug Resistant Organisms: None Reported Past Surgical History: No Surgical Hx Reported Past Anesthesia/Blood Transfusion Reactions: No Reported Reaction Past Psychological History: ADD/ADHD, Anxiety, Bipolar, Depression, PTSD, Schi zophrenia Smoking Status: Current every day smoker Past Alcohol Use History: Occasional Additional Past Alcohol Use History / Comment(s): Pt. states "I drink socially a couple times a week". Also states I dont really keep track of how many drinks I have but probably 5-6 each time I drink. I have a high tolerence". Past Drug Use History: Marijuana Medications and Allergies Home Medications Medication Instructions Recorded Confirmed Type Zemple Carbonate ER [Lithobid] 450 mg PO DAILY 30 Days #30 tab 07/05/24 07/11/24 Rx Nicotine 21Mg/24Hr Patch [Habitrol] 1 patch TRANSDERM DAILY 30 Days 07/05/24 07/11/24 Rx #30 patch QUEtiapine [SEROquel] 200 mg PO HS 30 Days #30 tab 07/05/24 07/11/24 Rx Sertraline [Zoloft] 200 mg PO DAILY 30 Days #60 tab 07/05/24 07/11/24 Rx Allergies Allergy/AdvReac Type Severity Reaction Status Date / Time No Known Allergies Allergy Verified 07/11/24 09:32 Physical Exam Vitals: Vital Signs Temp Pulse Pulse Resp BP BP Pulse Ox 07/12/24 08:45 99 16 07/12/24 08:44 99 16 108/69 97 07/12/24 08:31 97 07/12/24 03:19 98.1 F 104 H 20 106/72 97 07/12/24 00:00 98.4 F 105 H 19 115/76 97 07/11/24 23:29 98.4 F 96 18 120/79 98 07/11/24 21:00 96 20 109/68 98 07/11/24 17:00 98.7 F 96 18 107/74 07/11/24 12:55 98.7 F 67 17 98/56 96 FiO2 07/12/24 08:45 07/12/24 08:44 07/12/24 08:31 21 07/12/24 03:19 07/12/24 00:00 07/11/24 23:29 07/11/24 21:00 07/11/24 17:00 07/11/24 12:55 Intake and Output 07/11/24 07/12/24 07/12/24 22:59 06:59 14:59 Intake Total 240 Balance 240 Intake: Oral 240 Other: Voiding Method Toilet Toilet # Voids 2 Weight 125.7 kg Results 07/10/24 22:56 07/12/24 06:55 Comprehensive Metabolic Panel 07/11/24 07/12/24 Range/Units 17:55 06:55 Sodium 139 138 (137-145) mmol/L Potassium 4.2 4.1 (3.5-5.1) mmol/L Chloride 108 H 107 (98-107) mmol/L Carbon Dioxide 25 25 (22-30) mmol/L BUN 4 L 7 (7-17) mg/dL Creatinine 0.74 0.82 (0.52-1.04) mg/dL Glucose 77 89 (74-99) mg/dL Calcium 9.5 9.4 (8.4-10.2) mg/dL Current Medications Generic Name Dose Route Start Last Admin Trade Name Freq PRN Reason Stop Dose Admin Acetaminophen 325 mg 07/11/24 13:52 Acetaminophen Tab 325 Mg Tab PO Q6HR PRN Pain Sodium Chloride 1,000 mls @ 150 mls/hr 07/11/24 14:00 07/12/24 08:38 Saline 0.9% IV 150 mls/hr .Q6H40M CALIN Administration Lorazepam 1 mg 07/12/24 03:00 Lorazepam 1 Mg/0.5 Ml Vial IV Q8HR PRN Seizures Naloxone HCl 0.2 mg 07/11/24 14:08 Naloxone 0.4 Mg/Ml 1 Ml Vial IV Q2M PRN Opioid Reversal Nicotine 1 patch 07/12/24 09:00 07/12/24 08:38 Nicotine 21mg/24hr Patch TRANSDERM 1 patch DAILY CALIN Administration Intake and Output 07/11/24 07/12/24 07/12/24 22:59 06:59 14:59 Intake Total 240 Balance 240 Intake: Oral 240 Other: Voiding Method Toilet Toilet # Voids 2 Weight 125.7 kg 07/10/24 22:56 07/12/24 06:55
--- NOTE | 2024-07-12 13:12 | P.CN ---
Psychiatric Consult - . Consult date: 07/12/24 Consult:: 07/12/24 13:04 IDENTIFYING DATA: This patient is a 18-year-old transgendered individual, employed living independently REASON FOR REFERRAL: Psychiatry was consulted for depression, suicide attempt HISTORY OF PRESENT ILLNESS: The patient presented to the hospital with suicide attempt via OD on Seroquel, Zoloft and lithium. EKG revealed sinus tachycardia with RVR, QTc WNL. [place] level increased to 2.2 and patient was ultimately a dmitted to the medical floor with creatinine WNL and lithium 0.9 this morning. Patient seen and examined in the room. Patient states what prompted the suicide attempt was given recent suspension, they were unable to pay their bills and have enough money to pay this. Further, patient states receiving a message from their job that if they are suspended 1 more time they will be terminated. Patient states the suicide attempt was more of an impulsive act and he immediately regretted it, contacting 911. Patient states that they feel better now that they talked to their cheese production supervisor at their job, was pleading with underwriter to not be admitted to the inpatient BHU however given the severity of the attempt with high suicide risk, patient was informed that this was not an option and that he must be admitted to the BHU. Patient expressed a desire to game and use their iPad which they are unable to on the unit. At this time patient denies any suicidal or homicidal ideations, intent or plan. Patient denies any auditory, visual hallucinations and denies any paranoia or delusions. Patients admits to using nicotine daily, social alcohol and cannabis a few times a week. PAST PSYCHIATRIC HISTORY: Patient has a history of autism spectrum disorder, MDD, PTSD. Patient is currently on lithium ER 450 mg at bedtime, Seroquel 200 mg at bedtime, Zoloft 200 mg daily. Patient was recently [facility] from 07[facility]-07/05/2024. Patient states seeing their case management associate this past Tuesday follows with [facility]. Patient has a history of 7 previous suicide attempts, most recent prior to this 1 was during their adolescence. PAST MEDICAL HISTORY: Denies. ALLERGIES: as per EMR. CHEMICAL DEPENDENCY HISTORY: as per HPI. FAMILY PSYCHIATRIC/SUBSTANCE USE HISTORY: Patient states that her mother has bipolar disorder and that a cousin has schizophrenia SOCIAL HISTORY: Patient is single, has no children and lives independently. They are employed, completed high school. MENTAL STATUS EXAM: General Appearance: Patient appears to be stated age is alert, tearful and cooperative. Patient appears to have questionable hygiene and grooming wearing hospital gown with fair eye contact. Behavior: Patient is calmly lying in bed without any agitated behavior. Speech: Patient's speech is fluent and nonpressured. Mood/Affect: Patient reports their mood is "better", affect is flat Suicidality/Homicidality: Patient denies having any suicidal or homicidal ideation intent or plan. Perceptions: Patient denies any visual hallucinations and denies any auditory hallucinations Though content/process: There is no evidence of any delusional thought content and thought process is linear and goal-directed. Memory and concentration: AOX3, grossly intact for the purposes of this session. Can spell "WORLD" backwards Judgment and insight: Poor IMPRESSIONS: Suicide attempt via OD Bipolar disorder current episode depressed Autism spectrum disorder Cluster B traits History of PTSD PLAN: -At this time patient DOES meet criteria for inpatient psychiatric admission. -Would recommend the following medication changes/additions: Continue to hold psychotropic medications until medical clearance and transfer to the behavioral health unit -Continue 1:1 sitter for safety -Cannot leave AMA at this time. Patient will need a petition and certification if attempting to leave AMA. -When medically stable, patient is eligible for transfer to a psych bed when available. -Psychiatry will sign off at this time -Please contact with any questions. 07/12/24 13:08 07/12/24 13:09
--- NOTE | 2024-07-12 15:29 | CA ---
Transthoracic Echo Report Name: Donal Roque Age: 18 Gender: F : 2005 Exam Date: 07/12/2024 12:58 Exam Location: [facility] Ht (in): 62 Wt (lb): 277 Ordering Physician: Aileen Soto Attending/Referring Phys: [id number], [employer] Account Manager Lavon Wolfe, RVS Procedure CPT: Indications: LV function, sinus tachycardia Cardiac Hx: Technical Quality: Good Contrast 1: Total Dose (mL): Contrast 2: Total Dose (mL): MEASUREMENTS (Male / Female) Normal Values 2D ECHO LV Diastolic Diameter PLAX 4.8 cm 4.2 - 5.9 / 3.9 - 5.3 cm LV Systolic Diameter PLAX 3.0 cm IVS Diastolic Thickness 0.9 cm 0.6 - 1.0 / 0.6 - 0.9 cm LVPW Diastolic Thickness 1.0 cm 0.6 - 1.0 / 0.6 - 0.9 cm LV Relative Wall Thickness 0.4 RV Internal Dim ED PLAX 2.7 cm LVOT Diameter 2.0 cm Aortic Root Diameter 2.6 cm LA Systolic Diameter LX 3.5 cm 3.0 - 4.0 / 2.7 - 3.8 cm LV Diastolic Volume MOD 4C 72.3 cm??? LV Systolic Volume MOD 4C 17.1 cm??? LV Ejection Fraction MOD 4C 76.3 % LV Cardiac Index MOD 4C 2022.2 cm???/min???m??? LV Diastolic Length 4C 6.5 cm LV Systolic Length 4C 5.4 cm LV Cardiac Index 4C AL 2330.7 cm???/min???m??? LV Diastolic Volume MOD 2C 91.3 cm??? LV Systolic Volume MOD 2C 33.0 cm??? LV Ejection Fraction MOD 2C 63.9 % LV Cardiac Index MOD 2C 2140.7 cm???/min???m??? LV Diastolic Length 2C 8.1 cm LV Systolic Length 2C 6.8 cm LV Cardiac Index 2C AL 2335.8 cm???/min???m??? DOPPLER Mitral E Point Velocity 101.2 cm/s Mitral A Point Velocity 88.2 cm/s Mitral E to A Ratio 1.1 MV Deceleration Time 165.8 ms LV E' Septal Velocity 9.8 cm/s Mitral E to LV E' Septal Ratio 10.3 FINDINGS Left Ventricle Left ventricular ejection fraction is estimated at 60-65%. Mildly increased posterior wall thickness. Normal left ventricular systolic function with no obvious regional wall motion abnormalities. Left ventricular cavity size normal. Right Ventricle Normal right ventricular size and function. Unable to estimate the right ventricular systolic pressure. Right Atrium Normal right atrial size. Left Atrium Normal left atrial size. Mitral Valve Structurally normal mitral valve. Trace mitral regurgitation. No mitral stenosis. Aortic Valve Trileaflet aortic valve. No aortic valve stenosis or regurgitation. Tricuspid Valve Structurally normal tricuspid valve. Trace tricuspid regurgitation. No tricuspid stenosis. Pulmonic Valve Structurally normal pulmonic valve. No pulmonic stenosis. Trace pulmonic regurgitation. Pericardium No pericardial or pleural effusion. Aorta Normal size aortic root and proximal ascending aorta. CONCLUSIONS Left ventricular ejection fraction 60 to 65% Mildly increased left ventricular wall thickness Trace mitral regurgitation Trace tricuspid regurgitation No pericardial effusion Previewed by: Dr. Harseh Cotton DO (Electronically Signed) Final Date: 12 Jul 2024 15:28
--- NOTE | 2024-07-12 15:33 | P.DS ---
Providers Date of admission: 07/11/24 14:34 Attending physician: River Davis MD Consults: 07/11/24 13:51 Consult Physician Routine Consulting Provider: Schuyler Dubon Consult Reason/Comments: a flutter, lithium toxicity Do you want consulting provider notified?: Yes 07/11/24 13:53 Consult Physician Routine Consulting Provider: Psychiatry - [facility] Psychiatry Consult Reason/Comments: depression and suicidal attempt Do you want consulting provider notified?: Already Contacted Primary care physician: Stated None Hospital Course: Diagnoses: Depression with suicidal attempt with drug overdose with lithium and Seroquel pills after she was almost going to lose her job Western toxicity Atrial flutter ruled out per square cutter sinus tachycardia Nicotine dependence via vaping Obesity with BMI of 50 Mild anemia Hospital course: This is a pleasant 18 years old female with past medical history of depression and suicidal ideation. Presents to the hospital with drug overdose. 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 Patient still thinks she took about 12 pills of them. Then she regretted and decided to come to the emergency room. In the emergency room her lithium level was seen trending up so poison control was contacted by emergency room staff and they recommended normal saline at 150 mL and keep checking lithium level every 6 hours till start trending down onto consecutive samples as per staff. Western levels were checked and was within the reference range over the last 3 readings 1.5, 1.10.9 which is also trending down. Patient remains asymptomatic. IV fluids can be discontinued Patient evaluated by square cutter for abnormal EKG reading a flutter, per square cutter a few A-fib/flutter ruled out, mostly sinus tachycardia. Echocardiogram ordered and is pending. Please follow-up the result of the echocardiogram and consult cardiology team unless it is unremarkable. Also patient evaluated by psychiatry team who recommended that patient meets inpatient psych criteria. Petition was signed by the bedside nurse, CERT signed by me and placed in the paper chart. Patient currently medically stable to be transferred to the psych unit but needs close outpatient follow-up. Problems and management plan were discussed with the patient and he verbalized understanding and acceptance Patient was found stable and can be discharged home in guarded prognosis however he needs follow-up as an outpatient. Patient was instructed to follow up with PCP within one week and patient agrees Physical exam Gen: patient is a AAOx3, no distress CVS: S1-S2, RRR, no murmur Lungs: B/L CTA, no wheezing Abdomen: soft, no distention, no tenderness, positive bowel sounds Extremity: no leg edema or induration Time spent more than 35 minutes Plan - Discharge Summary Discharge Rx Participant: Yes New Discharge Prescriptions: Discontinued RX: [place] Carbonate ER [Lithobid] 450 mg PO DAILY 30 Days #30 tab No Action RX: QUEtiapine [SEROquel] 200 mg PO HS 30 Days #30 tab RX: Nicotine 21Mg/24Hr Patch [Habitrol] 1 patch TRANSDERM DAILY 30 Days #30 patch RX: Sertraline [Zoloft] 200 mg PO DAILY 30 Days #60 tab Discharge Medication List RX: Nicotine 21Mg/24Hr Patch [Habitrol] 1 patch TRANSDERM DAILY 30 Days #30 patch 07/05/24 [Rx] RX: QUEtiapine [SEROquel] 200 mg PO HS 30 Days #30 tab 07/05/24 [Rx] RX: Sertraline [Zoloft] 200 mg PO DAILY 30 Days #60 tab 07/05/24 [Rx] Follow up Appointment(s)/Referral(s): None,Stated [Primary Care Provider] - 1-2 days Discharge Disposition: TRANSFER TO PSYCH HOSP/UNIT
[2024-07-12 17:02] VITALS: BP 116/79; PULSE 94
== END 2024-07-12 17:38 | DRG 817 ==
LOC: EC 22:41 → 3SCARD 07-11 14:34
PROVIDERS: ADMIT Internal Medicine; ATTEND Internal Medicine
DX: T43.592A Poisoning by other antipsychotics and neuroleptics, intentional self-harm, initial encounter (principal); D64.9 Anemia, unspecified; E66.01 Morbid (severe) obesity due to excess calories; F17.290 Nicotine dependence, other tobacco product, uncomplicated; F20.9 Schizophrenia, unspecified; F31.30 Bipolar disorder, current episode depressed, mild or moderate severity, unspecified; F41.9 Anxiety disorder, unspecified; F43.10 Post-traumatic stress disorder, unspecified; F64.9 Gender identity disorder, unspecified; F84.0 Autistic disorder; F90.9 Attention-deficit hyperactivity disorder, unspecified type; I48.92 Unspecified atrial flutter; Z79.899 Other long term (current) drug therapy; Z91.51 Personal history of suicidal behavior; Z68.43 Body mass index [BMI] 50.0-59.9, adult
CPT/HCPCS: 36415; 71045; 80048; 80053; 80143; 80178; 80179; 80306; 80320; 81025; 83605; 84703; 85025; 87635; 93005; 93306; 94760; 96360; 96361; 99285

== ENCOUNTER 2024-07-12 16:21 | Inpatient (IN) | payer MEDICAID, OTHER ==
[2024-07-12] MEDS ORDERED: MAG HYDROX/AL HYDROX/SIMETH 355 ML BOTTLE PO PRN (16:38)
[2024-07-12] MEDS ORDERED: IBUPROFEN 600 MG TAB PO PRN (16:38)
[2024-07-12] MEDS ORDERED: MAGNESIUM HYDROXIDE 2,400 MG/30 ML CUP PO PRN (16:38)
[2024-07-12] MEDS ORDERED: LORazepam 2 MG/ML INJ IM PRN (16:41)
[2024-07-12] MEDS ORDERED: HALOPERIDOL LACTATE 5 MG/ML 1 ML VIAL IM PRN (16:41)
[2024-07-12] MEDS: LORazepam 1 MG TAB PO PRN (21:16)
[2024-07-12] MEDS: ACETAMINOPHEN TAB 325 MG TAB PO PRN (21:16)
[2024-07-12] MEDS: QUEtiapine 200 MG TAB PO SCH (21:16)
[2024-07-13] MEDS: SERTRALINE 100 MG TAB PO SCH (08:15)
[2024-07-13] MEDS: NICOTINE 21MG/24HR PATCH TRANSDERM SCH (08:15)
--- NOTE | 2024-07-13 12:17 | P.HP ---
Psychiatric H&P - . H&P Date: 07/13/24 History & Physical: Allergies Allergy/AdvReac Type Severity Reaction Status Date / Time horseradish Allergy Unknown Verified 07/12/24 16:38 Vital Signs Temp 96.9 F L 07/13/24 08:17 Pulse 110 H 07/13/24 08:17 Resp 18 07/13/24 08:17 BP 98/70 07/13/24 08:17 Pulse Ox 99 07/13/24 08:17 FiO2 Intake & Output 07/12/24 07/13/24 07/13/24 18:59 06:59 18:59 Weight 117.934 kg Laboratory Last Values Donalds 0.4 mmol/L 07/13/24 07:29 07/13/24 12:05 IDENTIFYING DATA: Patient is a 18-year-old transgendered male, employed and living independently CHIEF COMPLAINT: Suicide attempt via OD HPI: Patient presented to the hospital with suicide attempt via OD on Seroquel, Zoloft and lithium. EKG revealed sinus tachycardia with RVR, QTc WNL. [place] level increased to 2.2 and patient was ultimately admitted to the medical floor with creatinine WNL. Most recent lithium was 0.4. Patient seen during consult service yesterday and discussion was as follows: "Patient states what prompted the suicide attempt was given recent suspension, they were unable to pay their bills and have enough money to pay this. Further, patient states receiving a message from their job that if they are suspended 1 more time they will be terminated. Patient states the suicide attempt was more of an impulsive act and he immediately regretted it, contacting 911. Patient states that they feel better now that they talked to their fabric worker supervisor at their job, was pleading with comic book writer to not be admitted to the inpatient BHU however given the severity of the attempt with high suicide risk, patient was informed that this was not an option and that he must be admitted to the BHU. Patient expressed a desire to game and use their iPad which they are unable to on the unit. At this time patient denies any suicidal or homicidal ideations, intent or plan. Patient denies any auditory, visual hallucinations and denies any paranoia or delusions. Patients admits to using nicotine daily, social alcohol and cannabis a few times a week." Patient seen and evaluated on the unit and was agreeable with speaking to comic book writer in the room. He states feeling well, patient was able to come up with a list of safety plan for the future if suicidal thoughts resurface. The list includes people that they can contact including their fabric worker supervisor or the mobile crisis unit, activities they can do including yoga and exercising, and various other strategies that they plan on placing on the refrigerator so that they have easy access to this when in crisis. They feel as though the anxiety was a contributor to the suicide attempt as they felt very anxious that they could not control it. Patient was reminded of the recent increase in their antidepressant and the need to wait several weeks for it to fully work and patient was in agreement with trying Vistaril in the interim to help with anxiety. Given the overdose on lithium with the narrow therapeutic range, this will be held and alternative mood stabilizers were discussed with patient however they declined. Patient denies any suicidal or homicidal ideations intent or plan. At this time patient denies any auditory or visual hallucinations. Patient denies any flight of ideas racing thoughts and increased in goal directed behavior. PAST PSYCHIATRIC HISTORY: Patient has a history of autism spectrum disorder, MDD, PTSD. Patient is currently prescribed lithium ER 450 mg at bedtime, Seroquel 200 mg at bedtime, Zoloft 200 mg daily. Patient was recently hospitalized on the [facility] from 07/03-07/05/2024. Patient recently saw her child support case officer who has plans on scheduling patient with a psychiatrist through [facility]. Patient has a history of 7 previous suicide attempts, most recent being during their adolescence prior to the current suicide attempt. PMH: as per ER note ALLERGIES: as per EMR SUBSTANCE USE HISTORY: Patient reports using nicotine daily, social alcohol and cannabis a few times a week. FAMILY PSYCHIATRIC/SUBSTANCE USE HISTORY: Patient states that her mother has bipolar disorder and another cousin has schizophrenia SOCIAL HISTORY: Patient is single and lives independently, has no children and is employed at [employer]. They completed high school. MENTAL STATUS EXAM: General Appearance: Patient appears to be stated age is alert, directable, and attempts to cooperate. Patient appears to have fair hygiene and grooming. He is wearing glasses, overweight Behavior: Patient is seated without any agitated behavior. Speech: Patient's speech is fluent and nonpressured. Mood/Affect: Patient reports their mood is "better", affect is congruent and constricted. Suicidality/Homicidality: Patient denies having any homicidal ideation intent or plan. Denies any suicidal ideations intent or plan Perceptions: Patient denies any visual hallucinations and denies any auditory hallucinations Though content/process: There is no evidence of any delusional thought content and thought process is linear and goal-directed. Memory and concentration: AOX3, grossly intact for the purposes of this session. Can spell "WORLD" backwards Judgment and insight: Poor STRENGTHS/WEAKNESSES: strength is that patient is resilient. Weakness is that patient has poor judgment and is impulsive INTELLECT: Average IMPRESSIONS: Bipolar disorder, current episode depressed Suicide attempt via OD Autism spectrum disorder Cluster B traits Anxiety, unspecified History of PTSD Nicotine dependence PLAN: -Patient is admitted under voluntary status to MHU for stabilization of psychiatric symptoms and safety. Patient has signed adult voluntary form and and is placed in patient's chart. -Medications : Restart Zoloft 200 mg daily for depression/anxiety, Seroquel 200 mg at bedtime for psychosis, start hydroxyzine 25 mg 3 times daily for anxiety, will hold lithium given the recent suicide attempt - Ativan and Haldol PRN for agitation/aggression -Patient was informed of the risks, benefits and side effects of the medication and patient verbally consented to taking the medications. Patient signed med consent form and was placed in chart. Patient offered and declined patient education sheet for psychotropic medications. -Internal Medicine consult to perform medical evaluation and physical. -NRT -nicotine patch -SW on board for discharge planning. Encourage patient to participate in groups to work on coping skills. Anticipate discharge back home, likely early next week. Will encourage patient to sign a release to speak to friend/family member prior to discharge to ensure safety given them living independently
[2024-07-13] MEDS: hydrOXYzine pamoate 25 MG CAP PO SCH (16:11)
--- NOTE | 2024-07-13 21:28 | P.MDCNMH ---
<Maribell Pinto - Last Filed: 07/13/24 21:07> History of Present Illness H&P Date: 07/13/24 Patient is a 18-year-old transgendered male with depression and suicidal ideation for medical evaluation is here in the mental health unit for suicide attempt by overdose admitted on 07/11. She brought herself to the emergency r oom on admission and reported that she has been having recent stressors such as being suspended from work due to calling the police on one of the customers at work as he was carrying a gun by her account. She was given a letter stating that this is the last chance for her at work and she felt frustrated which led her to attempt to commit suicide by taking extra doses of her own pills particularly Seroquel and lithium. She reported that she took about 12 pills. She was initially admitted for medical management for lithium toxicity and atrial flutter and which have resolved. She has now been transferred to our psychiatric facility. On evaluation, she is concerned about the IV site on her left arm as the surrounding skin looked erythematous, warm and a small blister that looks pus filled. She denied fever, chills, chest pain, palpitations, abdominal pain, shortness of breath, loss of consciousness, tremors, headaches, changes in vision, focal weakness. Temperature 96.9 F, OK 110, BP 105/73, O2 saturation 99% on room air Review of systems: Pertinent positives and negatives as discussed in HPI, a complete review of systems was performed and all other systems are negative. Physical examination: Vital signs reviewed General: non toxic, no distress, appears at stated age, room air Derm: no unusual rashes/lesions, warm, puncture site noted on left antecubital a michael with surrounding erythema, mild tenderness on palpation, noted blister with clear fluid, no swelling or induration noted Head: atraumatic, normocephalic, symmetric Eyes: EOMI, anicteric sclera, pupils equal round reactive to light ENT: Nose and ears atraumatic Neck: No cervical lymphadenopathy, trachea midline, supple Mouth: no lip lesion, mucus membranes moist Cardiovascular: S1S2 reg, no murmur Lungs: CTA bilateral, no rhonchi, no rales, no accessory muscle use Abdominal: soft, nondistended, nontender to palpation, no guarding Ext: muscle strength 5 out of 5 in all 4 extremities grossly, no gross muscle atrophy, no contractures, positive dorsalis pedis pulse bilateral, no edema Neuro: CN II-XI grossly intact, no gross focal neuro deficits Psych: Alert, oriented, appropriate affect and mood Assessment/Plan: #. Phlebitis -Patient afebrile and hemodynamically stable -Pain control with Ibuprofen po as needed -Warm compress to affected area #. Suicide attempt via overdose #. Bipolar disorder #. Anxiety #. PTSD #. Nicotine dependence -Suicide precautions -Currently on currently on haloperidol and Ativan as needed for agitation or anxiety. On home Seroquel 200 mg p.o. and Zoloft 200 mg p.o Management of medications per psychiatry service. We appreciate being part of this patient's care. Thank you for this consult. Maribell Pinto MD PGY-1/Lead Android Developer Internal Medicine Dictation was produced using [employer] dictation software. please excuse any grammatical, word or spelling errors. Past Medical History Past Medical History: No Reported History History of Any Multi-Drug Resistant Organisms: None Reported Past Surgical History: No Surgical Hx Reported Past Anesthesia/Blood Transfusion Reactions: No Reported Reaction Past Psychological History: ADD/ADHD, Anxiety, Bipolar, Depression, PTSD, Schizophrenia Smoking Status: Vaper Past Alcohol Use History: Occasional Additional Past Alcohol Use History / Comment(s): Pt. states "I drink socially a couple times a week". Also states I dont really keep track of how many drinks I have but probably 5-6 each time I drink. I have a high tolerence". Past Drug Use History: Marijuana Medications and Allergies Home Medications Medication Instructions Recorded Confirmed Type Nicotine 21Mg/24Hr Patch [Habitrol] 1 patch TRANSDERM DAILY 30 Days 07/05/24 07/12/24 Rx #30 patch QUEtiapine [SEROquel] 200 mg PO HS 30 Days #30 tab 07/05/24 07/12/24 Rx Sertraline [Zoloft] 200 mg PO DAILY 30 Days #60 tab 07/05/24 07/12/24 Rx Allergies Allergy/AdvReac Type Severity Reaction Status Date / Time horseradish Allergy Unknown Verified 07/12/24 16:38 Physical Exam Vitals: Vital Signs Temp Pulse Resp BP Pulse Ox 07/13/24 12:54 105/73 07/13/24 08:17 96.9 F L 110 H 18 98/70 99 07/12/24 21:00 97.8 F 93 18 131/83 98 Cranial Nerve Examination - Cranial Nerves Cranial Nerve II- Optic: Intact Cranial Nerve III- Oculomotor: Intact Cranial Nerve IV- Trochlear: Intact Cranial Nerve V- Trigeminal: Intact Cranial Nerve - Abducens: Intact Cranial Nerve VII- Facial: Intact Cranial Nerve VIII- Auditory: Intact Cranial Nerve IX- Glossopharyngeal: Intact Cranial Nerve X- Vagus: Intact Cranial Nerve XI- Accessory: Intact Cranial Nerve XII- Hypoglossal: Intact <Arcelia Guaman - Last Filed: 07/14/24 01:12> History of Present Illness I have seen and evaluated the patient today. I Discussed the case with the resident and agree with the resident's findings I edited the assessment and plan as necessary as documented in the resident's note. for phlebitis , will start keflex 500 mg po qid otherwise agree with above plan Physical Exam Vitals: Vital Signs Temp Pulse Resp BP Pulse Ox 07/13/24 12:54 105/73 07/13/24 08:17 96.9 F L 110 H 18 98/70 99 Cranial Nerve Examination - Cranial Nerves Cranial Nerve II- Optic: Intact Cranial Nerve III- Oculomotor: Intact Cranial Nerve IV- Trochlear: Intact Cranial Nerve V- Trigeminal: Intact Cranial Nerve - Abducens: Intact Cranial Nerve VII- Facial: Intact Cranial Nerve VIII- Auditory: Intact Cranial Nerve IX- Glossopharyngeal: Intact Cranial Nerve X- Vagus: Intact Cranial Nerve XI- Accessory: Intact Cranial Nerve XII- Hypoglossal: Intact
[2024-07-14] MEDS: CEPHALEXIN 500 MG CAP PO SCH (06:05)
[2024-07-14] MEDS: haloperidoL 5 MG TAB PO PRN (13:22)
--- NOTE | 2024-07-14 14:11 | P.PN ---
Progress Note - Text Progress Note Date: 07/14/24 Interval History: Patient was seen wandering the hallways and was directable and agreeable to refugio ortiz with journalists and other writers in the office. The patient identifies himself as Max. He notes that he is currently manic and notes that he is only sleeping 2 hours at night. He notes that he is irritable and has too much energy. He states that he is grandiose. He notes no depression but his anxiety is severe. He denies any ongoing suicidal thoughts. He feels that the Seroquel is not helping with his manic episode and made a request to be back on the lithium. He notes that he is going to reach out to [facility] to see if they can arrange something on an outpatient basis if he gets back on his lithium. Patient denies any auditory, visual hallucinations and denies any paranoia or delusions. Patient denies any side effects from the medications and has been compliant with meds. Mental Status Exam: General Appearance: [Patient appears to be stated age is alert, directable, and cooperative.] Behavior: The patient was hyperactive and shaking. Speech: Patient's speech is fluent and pressured. Mood/Affect: Mood is improving mildly, affect is congruent and constricted. Suicidality/Homicidality: Patient denies having any suicidal or homicidal ideation intent or plan. Perceptions: Patient denies any visual hallucinations [and denies any auditory hallucinations] Though content/process: [There is no evidence of any delusional thought content and thought process is linear and goal-directed.] Memory and concentration: AOX3, grossly intact for the purposes of this session Judgment and insight: Improving mildly Diagnosis: Bipolar disorder, current episode depressed Suicide attempt via OD Autism spectrum disorder Cluster B traits Anxiety, unspecified History of PTSD Nicotine dependence Assessment: The patient's presenting with manic symptoms including pressured speech, little sleep, irritability, increased energy. He is requesting to be placed back on his lithium. Currently we will accommodate him but if we are unable to figure out on Tuesday whether he can continue this on discharge with safety precautions then will reconsider. Some ambiguous behaviors including as soon as he got up and left he was calm and did not shake. PLAN: -Patient is admitted under voluntary status to MHU for stabilization of psychiatric symptoms and safety. Patient has signed adult voluntary form and and is placed in patient's chart. -Medications : Zoloft 200 mg daily for depression/anxiety Seroquel 200 mg at bedtime for psychosis Hydroxyzine 25 mg 3 times daily for anxiety Restart [place] 300 mg take 1 tablet by mouth twice daily for bipolar disorder Once Seroquel 100 mg once for breakthrough manic symptoms - Ativan and Haldol PRN for agitation/aggression -Patient was informed of the risks, benefits and side effects of the medication and patient verbally consented to taking the medications. Patient signed med consent form and was placed in chart. Patient offered and declined patient education sheet for psychotropic medications. -Internal Medicine consult to perform medical evaluation and physical. -NRT -nicotine patch -SW on board for discharge planning. Encourage patient to participate in groups to work on coping skills. Anticipate discharge back home, likely early next week. Will encourage patient to sign a release to speak to friend/family member prior to discharge to ensure safety given them living independently
[2024-07-14] MEDS: QUEtiapine 100 MG TAB PO STA (14:14)
[2024-07-14] MEDS: QUEtiapine 100 MG TAB PO SCH (20:25)
[2024-07-14] MEDS: LITHIUM CARBONATE 300 MG CAP PO SCH (20:25)
[2024-07-15] MEDS: SERTRALINE 100 MG TAB PO SCH (10:15)
--- NOTE | 2024-07-15 15:09 | P.PN ---
Progress Note - Text Progress Note Date: 07/15/24 Interval History: Patient was seen wandering the hallways and was directable and agreeable to refugio ortiz with leader writer in the office. The patient had been going around telling nursing staff she is leaving tomorrow. I informed the patient that we had agreed upon if we restarted the lithium that we will workup things at [facility] to ensure safety with the lithium including possible bubble packing prior to discharge. Patient notes that with the lithium she slept a lot. She no longer has mood swings or racing thoughts. She notes that the irritability is low. She feels that the energy has come back down to normal. She no longer has any grandiose thoughts. She denies any depression. She notes that her anxiety is "here and there". She denies any ongoing suicidal thoughts. Patient denies any auditory, visual hallucinations and denies any paranoia or delusions. Patient denies any side effects from the medications and has been compliant with meds. Mental Status Exam: General Appearance: Patient appears to be stated age is alert, directable, and cooperative. Behavior: Patient is calmly seated without any agitated behavior. Speech: Patient's speech is fluent and nonpressured. Mood/Affect: Mood is improving mildly, affect is congruent and constricted. Suicidality/Homicidality: Patient denies having any suicidal or homicidal ideation intent or plan. Perceptions: Patient denies any visual hallucinations and denies any auditory hallucinations Though content/process: There is no evidence of any delusional thought content and thought process is linear and goal-directed. Memory and concentration: AOX3, grossly intact for the purposes of this session Judgment and insight: Improving mildly Diagnosis: Bipolar disorder, current episode depressed Suicide attempt via OD Autism spectrum disorder Cluster B traits Anxiety, unspecified History of PTSD Nicotine dependence Assessment: The patient does not appear to be manic and notes that she is not suicidal. She had expressed that Dr. Lei had told her she was being discharged on Tuesday. I informed the patient that it would be up to Dr. Lei but we had agreed on making arrangements with [facility] prior to discharge concerning the lithium which she had urged that we do. At this time complete stabilization. PLAN: -Patient is admitted under voluntary status to MHU for stabilization of psychiatric symptoms and safety. Patient has signed adult voluntary form and and is placed in patient's chart. -Medications : Zoloft 200 mg daily for depression/anxiety Seroquel 200 mg at bedtime for psychosis Hydroxyzine 25 mg 3 times daily for anxiety [place] 300 mg take 1 tablet by mouth twice daily for bipolar disorder (Ensure bubble pack prior to discharge) - Ativan and Haldol PRN for agitation/aggression -Patient was informed of the risks, benefits and side effects of the medication and patient verbally consented to taking the medications. Patient signed med consent form and was placed in chart. Patient offered and declined patient education sheet for psychotropic medications. -Internal Medicine consult to perform medical evaluation and physical. -NRT -nicotine patch -SW on board for discharge planning. Encourage patient to participate in groups to work on coping skills. Anticipate discharge back home, likely early next w [facility]. Will encourage patient to sign a release to speak to friend/family member prior to discharge to ensure safety given them living independently
--- NOTE | 2024-07-16 13:29 | P.PN ---
Progress Note - Text Progress Note Date: 07/16/24 Interval History: Patient was seen wandering the hallways and was directable and agreeable to sp angel with assembly instructions writer in the office. Patient expressed no concerns, they report being put back on lithium due to manic symptoms resurfacing. They otherwise have been attending groups, is willing to sign an JOSE LUIS so that someone is able to speak to friend upon discharge. They denied any sleep difficulties. At this time patient denies any suicidal or homicidal ideations, intent or plan. Patient denies any auditory, visual hallucinations and denies any paranoia or delusions. Patient denies any side effects from the medications and has been compliant with meds. Mental Status Exam: General Appearance: Patient appears to be stated age is alert, directable, and cooperative. Patient is overweight Behavior: Patient is calmly seated without any agitated behavior. Speech: Patient's speech is fluent and nonpressured. Mood/Affect: Mood is improving mildly, affect is congruent and blunted. Suicidality/Homicidality: Patient denies having any suicidal or homicidal ideation intent or plan. Perceptions: Patient denies any visual hallucinations and denies any auditory hallucinations Though content/process: There is no evidence of any delusional thought content and thought process is linear and goal-directed. Memory and concentration: AOX3, grossly intact for the purposes of this session Judgment and insight: Improving mildly Assessment Bipolar disorder, current episode depressed Suicide attempt via OD Autism spectrum disorder Cluster B traits Anxiety, unspecified History of PTSD Nicotine dependence Plan: -Patient continues to meet criteria for inpatient psychiatric admission for symptom stabilization and safety. Patient has signed adult voluntary form and medication consent and was placed in patient's chart. -Medications: Continue Zoloft 200 mg daily for depression/anxiety, Seroquel 200 mg at bedtime for psychosis, hydroxyzine 25 mg 3 times daily for anxiety, lithium 300 mg twice daily for bipolar disorder -When necessary Ativan and Haldol for agitation/aggression. -Labs: [place] level ordered to be completed tomorrow. -NRT - nicotine patch -SW on board for discharge planning. Encouraged the patient to participate in milieu. Anticipate discharge back home tomorrow after lithium level. Will reach out to [facility] regarding bubble pack or med box given recent suicide attempt on lithium
[2024-07-16 21:24] VITALS: RESP 18
[2024-07-17 08:42] VITALS: BP 115/76; PULSE 135; TEMP 97.8
--- NOTE | 2024-07-17 13:13 | P.DS ---
Providers Date of admission: 07/12/24 17:54 Expected date of discharge: 07/17/24 Attending physician: Ivonne Lei MD Consults: 07/12/24 16:38 Consult Physician Routine Consulting Provider: Bj Ramesh Consult Reason/Comments: H&P Do you want consulting provider notified?: Yes Primary care physician: Stated None - Discharge Diagnosis(es) (1) Bipolar disorder current episode depressed Status: Acute Priority: High (2) Suicide attempt by multiple drug overdose Status: Acute Priority: High (3) Anxiety disorder, unspecified Status: Acute Priority: Medium (4) Nicotine dependence Status: Acute Priority: Low (5) Autism spectrum disorder Status: Chronic Priority: Low (6) Cluster B personality disorder Status: Chronic Priority: Medium (7) Post traumatic stress disorder (PTSD) Status: Chronic Priority: Low Hospital Course: Admission HPI: Admission note was completed by blurb writer "Patient presented to the hospital with suicide attempt via OD on Seroquel, Zoloft and lithium. EKG revealed sinus tachycardia with RVR, QTc WNL. Spangle level increased to 2.2 and patient was ultimately admitted to the medical floor with creatinine WNL. Most recent lithium was 0.4. Patient seen during consult service yesterday and discussion was as follows: "Patient states what prompted the suicide attempt was given recent suspension, they were unable to pay their bills and have enough money to pay this. Further, patient states receiving a message from their job that if they are suspended 1 more time they will be terminated. Patient states the suicide attempt was more of an impulsive act and he immediately regretted it, contacting 911. 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 Patient expressed a desire to game and use their iPad which they are unable to on the unit. At this time patient denies any suicidal or homicidal ideations, intent or plan. Patient denies any auditory, visual hallucinations and denies any paranoia or delusions. Patients admits to using nicotine daily, social alcohol and cannabis a few times a week." Patient seen and evaluated on the unit and was agreeable with speaking to blurb writer in the room. He states feeling well, patient was able to come up with a list of safety plan for the future if suicidal thoughts resurface. The list includes people that they can contact including their automotive fleet supervisor or the mobile crisis unit, activities they can do including yoga and exercising, and various other strategies that they plan on placing on the refrigerator so that they have easy access to this when in crisis. They feel as though the anxiety was a contributor to the suicide attempt as they felt very anxious that they could not control it. Patient was reminded of the recent increase in their antidepressant and the need to wait several weeks for it to fully work and patient was in agreement with trying Vistaril in the interim to help with anxiety. Given the overdose on lithium with the narrow therapeutic range, this will be held and alternative mood stabilizers were discussed with patient however they declined. Patient denies any suicidal or homicidal ideations intent or plan. At this time patient denies any auditory or visual hallucinations. Patient denies any flight of ideas racing thoughts and increased in goal directed behavior. " Hospital course: Upon admission to the unit patient was directable and agreeable to commence treatment and signed adult voluntary form.. Patient got along well with other patients on the unit and followed unit protocol. Patient was compliant with the medications and denied any side effects throughout hospital course. Patient was started on Zoloft 200 mg daily for depression/anxiety, Seroquel increased to 300 mg at bedtime for psychosis, Vistaril 25 mg 3 times daily for anxiety, lithium 300 mg twice daily for bipolar disorder. Spangle level returned at 0.5 and patient was given a limited prescription given recent suicide attempt. Patient spoke of his stressors and engaged in therapy both group and individual. Patient was also seen by medical team for history and physical exam. Throughout the course of the hospitalization patient gradually improved with regards to mood, anxiety, sleep and returned back to their baseline level of functioning. On the day of discharge patient denied any suicidal or homicidal ideations intent or plan denied any auditory or visual hallucinations. The patient denied any access to guns or weapons. Patient denied any paranoia and did not endorse any delusions. Patient does not have a significant history of substance abuse and was counseled on abstaining from all substances including alcohol and marijuana. Patient was also counseled on the medications and need for regular compliance and was encouraged to follow-up with their outpatient appointment for mental health and also for primary care. Prior to discharge a family meeting will be arranged by social media marketing analyst to answer any questions and ensure safety upon discharge including making sure that guns/weapons are either removed from the home or locked away. Patient to be discharged back home alone and will follow- up with [facility]. Mental status exam: General Appearance: Patient appears to be stated age is alert, pleasant, and cooperative. Patient is in no acute distress and has improved hygiene and grooming Behavior: Patient is calmly seated without any agitated behavior. Speech: Patient's speech is fluent and nonpressured. Mood/Affect: Patient reports their mood is "good", affect is congruent and euthymic. Suicidality/Homicidality: Patient denies having any suicidal or homicidal ideation intent or plan. Perceptions: Patient denies any auditory or visual hallucinations. Though content/process: There is no evidence of any delusional thought content and thought process is linear and goal-directed. More future oriented Memory and concentration: AOX3, grossly intact for the purposes of this session. Can spell "WORLD" backwards correctly. Judgment and insight: improved with guarded prognosis Impression: Bipolar disorder, current episode depressed Suicide attempt via OD Autism spectrum disorder Cluster B traits Anxiety, unspecified History of PTSD Nicotine dependence Plan: -Continue with discharge today as patient has improved and stabilized psychiatrically and is not currently an imminent threat to themself and/or others. -Continue medications: Zoloft 200 mg daily, Seroquel 300 mg at bedtime, hydroxyzine 25 mg 3 times daily, lithium 300 mg twice daily -Patient was counseled on the need for medication compliance and appropriate follow-up at mental health and also primary care for medical issues. Patient verbalized understanding and agreed. -Social work to help coordinate patients discharge today arrange for and conduct family meeting to ensure safety upon discharge and answer any questions/concerns. also to ensure safe home environment that guns/weapons are either removed from the home or locked away. Social work also to arrange for patients follow up appointments with [facility] for psychiatric care along with follow up with primary care provider. -Patient counseled on abstaining from recreational drugs and marijuana and alcohol. Was informed/educated on the adverse effects on their physical and mental health. Patient verbally agreed and understood. -Patient was instructed to return to the hospital or seek immediate medical care if their psychiatric or medical symptoms do worsen or reoccur. Allergies Allergy/AdvReac Type Severity Reaction Status Date / Time horseradish Allergy Unknown Verified 07/12/24 16:38 Vital Signs Temp 97.8 F 07/17/24 08:42 Pulse 135 H 07/17/24 08:42 Resp 18 07/16/24 21:24 BP 115/76 07/17/24 08:42 Pulse Ox 99 07/17/24 08:42 FiO2 Patient Condition at Discharge: Stable Plan - Discharge Summary Discharge Rx Participant: No New Discharge Prescriptions: New Nicotine 21Mg/24Hr Patch [Habitrol] 1 patch TRANSDERM DAILY patch Spangle Carbonate 300 mg PO BID 7 Days #14 cap QUEtiapine [SEROquel] 300 mg PO HS 30 Days #90 tab hydrOXYzine pamoate [Vistaril] 25 mg PO TID 30 Days #90 cap Sertraline [Zoloft] 200 mg PO DAILY 30 Days #60 tab Continue Nicotine 21Mg/24Hr Patch [Habitrol] 1 patch TRANSDERM DAILY 30 Days #30 patch Sertraline [Zoloft] 200 mg PO DAILY 30 Days #60 tab Discontinued QUEtiapine [SEROquel] 200 mg PO HS 30 Days #30 tab Discharge Medication List Nicotine 21Mg/24Hr Patch [Habitrol] 1 patch TRANSDERM DAILY 30 Days #30 patch 07/05/24 [Rx] Sertraline [Zoloft] 200 mg PO DAILY 30 Days #60 tab 07/05/24 [Rx] Spangle Carbonate 300 mg PO BID 7 Days #14 cap 07/17/24 [Rx] Nicotine 21Mg/24Hr Patch [Habitrol] 1 patch TRANSDERM DAILY patch 07/17/24 [Rx] QUEtiapine [SEROquel] 300 mg PO HS 30 Days #90 tab 07/17/24 [Rx] Sertraline [Zoloft] 200 mg PO DAILY 30 Days #60 tab 07/17/24 [Rx] hydrOXYzine pamoate [Vistaril] 25 mg PO TID 30 Days #90 cap 07/17/24 [Rx] Follow up Appointment(s)/Referral(s): Jairon Todd [Other] - 1 Week (Walk in Clinic ) [facility] [Outside] - 07/19/24 11:00 am ([facility] 07/19 @ 11:00 ) Patient Instructions/Handouts: How to Stop Smoking (DC), Bipolar Disorder (DC), Depression (DC), Autism Spectrum Disorder (DC), Anxiety (GEN) Activity/Diet/Wound Care/Special Instructions: Avoid the use of street drugs and alcohol. Take all medications as prescribed. When you are in need of refills on your medications, please contact your medical provider and/or outpatient psychiatrist/provider to have this done. Please go to your scheduled outpatient appointment for aftercare treatment. If symptoms return or become worse, call the crisis line at and/or go to the nearest emergency room for evaluation. National Suicide Hotline [facility] [facility] confidentiality statement: "The information contained in this communication, including attachments, is confidential, may be privileged, and is intended only for the use of the named recipient(s). Unauthorized use, disclosure, forwarding or copying is strictly prohibited and may be unlawful. If you have received this communication in error, please notify me IMMEDIATELY at the phone number or pager listed above. Discharge Disposition: HOME SELF-CARE
== END 2024-07-17 12:04 | disposition home or self-care (01) | DRG 817 ==
LOC: 3MHU 17:54
PROVIDERS: ADMIT Psychiatry & Neurology Psychiatry; ATTEND Psychiatry & Neurology Psychiatry
DX: T43.592A Poisoning by other antipsychotics and neuroleptics, intentional self-harm, initial encounter (principal); F31.30 Bipolar disorder, current episode depressed, mild or moderate severity, unspecified; F41.9 Anxiety disorder, unspecified; T43.222A Poisoning by selective serotonin reuptake inhibitors, intentional self-harm, initial encounter; F17.200 Nicotine dependence, unspecified, uncomplicated; F84.0 Autistic disorder; F60.89 Other specific personality disorders; I80.9 Phlebitis and thrombophlebitis of unspecified site; I48.92 Unspecified atrial flutter; F43.10 Post-traumatic stress disorder, unspecified; Z79.899 Other long term (current) drug therapy; Z88.8 Allergy status to other drugs, medicaments and biological substances; Z91.51 Personal history of suicidal behavior; Z81.8 Family history of other mental and behavioral disorders
CPT/HCPCS: 80178

== ENCOUNTER 2024-07-29 20:20 | Emergency (ER) | payer OTHER ==
[2024-07-29 20:26] VITALS: TEMP 98
[2024-07-29 20:56] LABS: Appearance,Urine Clear (Clear); Bilirubin,Urine Negative (Negative); Blood,Urine Negative (Negative); Color,Urine Colorless; Glucose,Urine (UA) Negative (Negative); Ketones,Urine Negative (Negative); Leukocyte Esterase,Urine Negative (Negative); Nitrite,Urine Negative (Negative); PH, Urine 7.5 (5.0-8.0); Protein,Urine Negative (Negative); Specific Gravity,Urine 1.013 (1.001-1.035); Urobilinogen,Urine <2.0 mg/dL (<2.0)
--- NOTE | 2024-07-29 21:13 | ED ---
Psych HPI - General Chief Complaint: Psychiatric Symptoms Stated Complaint: mental health Time Seen by Provider: 07/29/24 21:11 Source: patient, RN notes reviewed Mode of arrival: ambulatory - History of Present Illness Initial Comments: 18-year-old female with history of bipolar disorder presenting for mental health evaluation. States she has been feeling very depressed, hopeless, and anxious lately as she has struggled with getting a job and paying her bills. Denies suicidal or homicidal ideation. No medical complaints at this time. - Related Data Previous Rx's Medication Instructions Recorded Nicotine 21Mg/24Hr Patch [Habitrol] 1 patch TRANSDERM DAILY 30 Days 07/05/24 #30 patch Sertraline [Zoloft] 200 mg PO DAILY 30 Days #60 tab 07/05/24 [place] Carbonate 300 mg PO BID 7 Days #14 cap 07/17/24 Nicotine 21Mg/24Hr Patch [Habitrol] 1 patch TRANSDERM DAILY patch 07/17/24 QUEtiapine [SEROquel] 300 mg PO HS 30 Days #90 tab 07/17/24 Sertraline [Zoloft] 200 mg PO DAILY 30 Days #60 tab 07/17/24 hydrOXYzine pamoate [Vistaril] 25 mg PO TID 30 Days #90 cap 07/17/24 Allergies Allergy/AdvReac Type Severity Reaction Status Date / Time horseradish Allergy Unknown Verified 07/29/24 20:25 Review of Systems ROS Statement: Those systems with pertinent positive or pertinent negative responses have been documented in the HPI. ROS Other: All systems not noted in ROS Statement are negative. Past Medical History Past Medical History: No Reported History History of Any Multi-Drug Resistant Organisms: None Reported Past Surgical History: No Surgical Hx Reported Past Anesthesia/Blood Transfusion Reactions: No Reported Reaction Past Psychological History: ADD/ADHD, Anxiety, Bipolar, Depression, PTSD, Schizophrenia Smoking Status: Current every day smoker, Vaper Past Alcohol Use History: Occasional Past Drug Use History: Marijuana General Exam Limitations: no limitations General appearance: alert, in no apparent distress Head exam: Present: atraumatic, normocephalic, normal inspection Neurological exam: Present: alert, oriented X3 Psychiatric exam: Present: normal affect, normal mood. Absent: homicidal ideation Skin exam: Present: warm, dry, intact, normal color. Absent: rash Course Vital Signs 07/29/24 20:22 Temperature 98 F Pulse Rate 109 H Respiratory 18 Rate Blood Pressure 132/83 O2 Sat by Pulse 97 Oximetry Medical Decision Making - Medical Decision Making Was pt. sent in by a medical professional or institution (, [facility]IS[facility], FOOD AND BEVERAGE OUTLETS MANAGER, urgent care, hospital, or senior living...) When possible be specific @ -No Did you speak to anyone other than the patient for history (EMS, parent, family, police, friend...)? What history was obtained from this source @ -No Did you review nursing and triage notes (agree or disagree)? Why? @ -I reviewed and agree with nursing and triage notes Were old charts reviewed (outside hosp., previous admission, EMS record, old EKG, old radiological studies, urgent care reports/EKG's, senior living records)? Report findings @ -No old charts were reviewed Differential Diagnosis (chest pain, altered mental status, abdominal pain women, abdominal pain men, vaginal bleeding, weakness, fever, dyspnea, syncope, headache, dizziness, GI bleed, back pain, seizure, CVA, palpatations, mental health, musculoskeletal)? @ -Differential Mental Health Depression, anxiety, bipolar, psychosis, schizophrenia, borderline personality, situational depression, adjustment disorder, behavioral disorder, brain tumor, malingering, substance abuse, encephalopathy, medication reaction, dementia, hypothyroidism, degenerative neurologic disorder, lupus.... This is not meant to be all-inclusive list EKG interpreted by me (3pts min.). @ -None X-rays interpreted by me (1pt min.). @ -None done CT interpreted by me (1pt min.). @ -None done U/S interpreted by me (1pt. min.). @ -None done What testing was considered but not performed or refused? (CT, X-rays, U/S, labs)? Why? @ -None What meds were considered but not given or refused? Why? @ -None Did you discuss the management of the patient with other professionals (professionals i.e. , DENIS[facility], FOOD AND BEVERAGE OUTLETS MANAGER, lab, RT, psych nurse, social services, web site designer, teacher, boat officer, upper caser)? Give summary @ -I spoke with EPS who determines that patient does not meet inpatient criteria for psychiatric hospitalization. Was smoking cessation discussed for >3mins.? @ -No Was critical care preformed (if so, how long)? @ -No Were there social determinants of health that impacted care today? How? (Homelessness, low income, unemployed, alcoholism, drug addiction, transportation, low edu. Level, literacy, decrease access to med. care, custodial, rehab)? @ -No Was there de-escalation of care discussed even if they declined (Discuss DNR or withdrawal of care, Hospice)? DNR status @ -No What co-morbidities impacted this encounter? (DM, HTN, Smoking, COPD, CAD, Cancer, CVA, ARF, Chemo, Hep., AIDS, mental health diagnosis, sleep apnea, morb id obesity)? @ -None Was patient admitted / discharged? Hospital course, mention meds given and route, prescriptions, significant lab abnormalities, going to OR and other pertinent info. @ -18-year-old female presenting for mental health evaluation. States she is feeling hopelessness, depression and anxiety. Denies suicidal or homicidal ideation. No medical complaints at this time. BAT 0.00. Patient is medically cleared to be seen by EPS. I spoke with EPS after evaluation who determines that patient does not meet inpatient criteria for psychiatric hospitalization at this time. I agree with this plan. Appropriate return precautions and safety plan discussed with patient. Case was discussed with my ED attending Dr. Borrero. Undiagnosed new problem with uncertain prognosis? @ -No Drug Therapy requiring intensive monitoring for toxicity (Heparin, Nitro, Insulin, Cardizem)? @ -No Were any procedures done? @ -No Diagnosis/symptom? @ -Depression Acute, or Chronic, or Acute on Chronic? @ -Acute Uncomplicated (without systemic symptoms) or Complicated (systemic symptoms)? @ -Uncomplicated Side effects of treatment? @ -No Exacerbation, Progression, or Severe Exacerbation? @ -No Poses a threat to life or bodily function? How? (Chest pain, USA, SD, pneumonia, PE, COPD, DKA, ARF, appy, cholecystitis, CVA, Diverticulitis, Homicidal, Suicidal, threat to staff... and all critical care pts) @ -Not at this time - Lab Data Lab Results 07/29/24 07/29/24 07/29/24 Range/Units 20:26 20:26 20:27 Urine Color Colorless Urine Appearance Clear (Clear) Urine pH 7.5 (5.0-8.0) Ur Specific [place] 1.013 (1.001-1.035) Urine Protein Negative (Negative) Urine Glucose (UA) Negative (Negative) Urine Ketones Negative (Negative) Urine Blood Negative (Negative) Urine Nitrite Negative (Negative) Urine Bilirubin Negative (Negative) Urine Urobilinogen <2.0 (<2.0) mg/dL Ur Leukocyte Esterase Negative (Negative) Urine HCG, Qual Not Detected (Not Detectd) Urine Opiates Screen Not Detected (NotDetected) Ur Oxycodone Screen Not Detected (NotDetected) Urine Methadone Screen Not Detected (NotDetected) Ur Barbiturates Screen Not Detected (NotDetected) U Tricyclic Antidepress Detected H (NotDetected) Ur Phencyclidine Scrn Not Detected (NotDetected) Ur Amphetamines Screen Not Detected (NotDetected) U Methamphetamines Scrn Not Detected (NotDetected) U Benzodiazepines Scrn Not Detected (NotDetected) Urine Cocaine Screen Not Detected (NotDetected) U Marijuana (THC) Screen Detected H (NotDetected) SARS-CoV-2 (PCR) Not Detected (Not Detectd) Disposition Clinical Impression: Mental health problem Disposition: HOME SELF-CARE Condition: Stable Additional Instructions: Please return to the Emergency Department if symptoms worsen or any other concerns. Is patient prescribed a controlled substance at d/c from ED?: No Referrals: None,Stated [Primary Care Provider] - 1-2 days Forms: Area PCPs Time of Disposition: 23:23
[2024-07-29 21:20] LABS: Amphetamine Screen,Urine Not Detected (NotDetected); Barbiturate Screen,Urine Not Detected (NotDetected); Benzodiazepines Screen,Urine Not Detected (NotDetected); Cocaine Screen,Urine Not Detected (NotDetected); Methadone Screen, Urine Not Detected (NotDetected); Opiate Screen,Urine Not Detected (NotDetected); Oxycodone Screen, Urine Not Detected (NotDetected); Phencyclidine Screen,Urine Not Detected (NotDetected); Tricyclic Antidepressant,Urine Detected (NotDetected); Urn Cannabinoid Scrn Detected (NotDetected)
[2024-07-29 23:47] VITALS: BP 116/76; PULSE 92; RESP 16
== END 2024-07-29 23:49 | disposition home or self-care (01) ==
LOC: EC 20:20
DX: F32.A Depression, unspecified (principal); F17.290 Nicotine dependence, other tobacco product, uncomplicated; Z91.09 Other allergy status, other than to drugs and biological substances; Z11.52 Encounter for screening for COVID-19
CPT/HCPCS: 80306; 81003; 81025; 82075; 87635; 99284

== ENCOUNTER 2024-08-17 09:21 | Emergency (ER) | payer OTHER ==
[2024-08-17 09:34] VITALS: RESP 18
--- NOTE | 2024-08-17 09:48 | ED ---
Skin/Abscess/FB HPI - General Chief complaint: Skin/Abscess/Foreign Body Stated complaint: left breast lumb and right leg lump Time Seen by Provider: 08/17/24 09:45 Source: patient, RN notes reviewed, old records reviewed Mode of arrival: ambulatory Limitations: no limitations - History of Present Illness Initial comments: 18-year-old female presented to the ER for evaluation of left breast bump. Patient states she was recently released from mental health floor yesterday. The past couple of months she has noticed a growing painless lesion to her left breast. She states it was a pea-sized and has enlarged. Lesion does not change with menstrual period. She denies any abnormal nipple drainage or discharge. Patient reports a family history of breast cancer. Patient also reports a right calf lump as well. She states this 1 has been there for approximately a year. Is also painless. She denies any injuries to area. Overlying skin changes. No difficulty with ambulation. No fevers or chills or other complaints - Related Data Previous Rx's Medication Instructions Recorded Sertraline [Zoloft] 200 mg PO DAILY 30 Days #60 tab 07/05/24 hydrOXYzine pamoate [Vistaril] 25 mg PO TID 30 Days #90 cap 07/17/24 [place] 300 mg PO BID 30 Days #60 cap 08/16/24 Nicotine 14Mg/24Hr Patch [Habitrol] 1 patch TRANSDERM DAILY 30 Days 08/16/24 #30 patch QUEtiapine [SEROquel] 50 mg PO HS 30 Days #210 tab 08/16/24 QUEtiapine [SEROquel] 350 mg PO HS #0 tab 08/16/24 Sertraline [Zoloft] 200 mg PO DAILY 30 Days #60 tab 08/16/24 busPIRone HCl [Buspar] 10 mg PO TID 30 Days #90 tab 08/16/24 hydrOXYzine pamoate [Vistaril] 25 mg PO TID 30 Days #90 cap 08/16/24 Allergies Allergy/AdvReac Type Severity Reaction Status Date / Time horseradish Allergy Unknown Verified 08/17/24 09:34 lactose AdvReac Nausea & Verified 08/17/24 09:34 Vomiting red meat AdvReac Nausea & Uncoded 08/17/24 09:34 Vomiting Review of Systems ROS Statement: Those systems with pertinent positive or pertinent negative responses have been documented in the HPI. ROS Other: All systems not noted in ROS Statement are negative. Past Medical History Past Medical History: No Reported History History of Any Multi-Drug Resistant Organisms: None Reported Past Surgical History: No Surgical Hx Reported Past Anesthesia/Blood Transfusion Reactions: No Reported Reaction Past Psychological History: ADD/ADHD, Anxiety, Bipolar, Depression, PTSD, Schizophrenia Smoking Status: Vaper Past Alcohol Use History: Occasional Past Drug Use History: Marijuana General Exam Limitations: no limitations General appearance: alert, in no apparent distress Respiratory exam: Present: normal lung sounds bilaterally. Absent: respiratory distress, wheezes, rales, rhonchi, stridor Cardiovascular Exam: Present: regular rate, normal rhythm, normal heart sounds. Absent: systolic murmur, diastolic murmur, rubs, gallop, clicks Extremities exam: Present: full ROM, normal capillary refill (2+ bilateral DP pulses.), other (There is a nontender bump noted to right calf. No overlying skin changes.). Absent: tenderness, pedal edema, joint swelling, calf tenderness Neurological exam: Present: alert, oriented X3, CN II-XII intact Skin exam: Present: warm, dry, intact, normal color, other (Left breast-there is an area of darkened skin adjacent to areola in the 8 o'clock position. Area is nontender. There is no nodule or fluctuance present. No erythema, warmth, purulent drainage or nipple discharge. No lymphadenopathy.). Absent: rash Course Vital Signs 08/17/24 08/17/24 09:30 10:58 Temperature 97.8 F 97.9 F Pulse Rate 108 H 98 Respiratory 18 18 Rate Blood Pressure 109/66 105/72 O2 Sat by Pulse 95 96 Oximetry Medical Decision Making - Medical Decision Making Was pt. sent in by a medical professional or institution (, PA, ELECTRIC ORGAN ASSEMBLER AND CHECKER, urgent care, hospital, or senior living...) When possible be specific @ -No Did you speak to anyone other than the patient for history (EMS, parent, family, police, friend...)? What history was obtained from this source @ -No Did you review nursing and triage notes (agree or disagree)? Why? @ -I reviewed and agree with nursing and triage notes Were old charts reviewed (outside hosp., previous admission, EMS record, old EKG, old radiological studies, urgent care reports/EKG's, senior living records)? Report findings @ -No old charts were reviewed Differential Diagnosis (chest pain, altered mental status, abdominal pain women, abdominal pain men, vaginal bleeding, weakness, fever, dyspnea, syncope, headache, dizziness, GI bleed, back pain, seizure, CVA, palpatations, mental health, musculoskeletal)? @ -Cyst, abscess, mastitis, malignancy, fibroadenoma... This list is not meant to be all-inclusive EKG interpreted by me (3pts min.). @ -None done X-rays interpreted by me (1pt min.). @ -None done CT interpreted by me (1pt min.). @ -None done U/S interpreted by me (1pt. min.). @ -Ultrasound left breast showing at the 8 o'clock position a 5 cm from the nipple area of dense tissue dyspneic the skin tissue surface. Small tract extending to surface fevers sebaceous cyst versus other epidermal base lesion. No organized fluid collection or mass. What testing was considered but not performed or refused? (CT, X-rays, U/S, labs)? Why? @ -None What meds were considered but not given or refused? Why? @ -Patient refused analgesic medications. Did you discuss the management of the patient with other professionals (tahir blackwell i.eArely Beasley, PA, ELECTRIC ORGAN ASSEMBLER AND CHECKER, lab, RT, psych nurse, social services technician, service unit operator, teacher, information systems security officer, leather case finisher)? Give summary @ -No Was smoking cessation discussed for >3mins.? @ -No Was critical care preformed (if so, how long)? @ -No Were there social determinants of health that impacted care today? How? (Homelessness, low income, unemployed, alcoholism, drug addiction, transportation, low edu. Level, literacy, decrease access to med. care, shelter, rehab)? @ -No Was there de-escalation of care discussed even if they declined (Discuss DNR or withdrawal of care, Hospice)? DNR status @ -No What co-morbidities impacted this encounter? (DM, HTN, Smoking, COPD, CAD, Cancer, CVA, ARF, Chemo, Hep., AIDS, mental health diagnosis, sleep apnea, morbid obesity)? @ -None Was patient admitted / discharged? Hospital course, mention meds given and route, prescriptions, significant lab abnormalities, going to OR and other pertinent info. @ -Discharge. 18-year-old female presenting to the ER for evaluation of left breast lump and right calf lump. Vital signs stable. Patient in no signs of acute distress nontoxic-appearing. Examination of right calf is a minor bulge noted posteriorly. This area is nontender with no overlying skin skin changes, erythema, warmth, wounds or rashes. Patient is neurovascular intact. Examination of left breast showing a nontender area at the 8 o'clock position with mild skin darkening. There is no nodule or fluctuance noted. No purulent drainage, warmth, rash, wound, induration or nipple discharge. Ultrasound left breast with findings favoring sebaceous cyst versus other epidermal base lesion. There is no organized fluid collection or mass. Patient refused analgesic medications. Upon reevaluation, patient eating and watching show on iPad no s igns of acute distress. Results discussed with patient, all questions answered. Advised to follow closely with PCP for reevaluation. Patient discharged stable condition. Return parameters discussed. Patient verbally expressed understanding agree with care plan. Case discussed with ED attending Dr. Lei Undiagnosed new problem with uncertain prognosis? @ -No Drug Therapy requiring intensive monitoring for toxicity (Heparin, Nitro, Insulin, Cardizem)? @ -No Were any procedures done? @ -No Diagnosis/symptom? @ -Breast cyst Acute, or Chronic, or Acute on Chronic? @ -Acute Uncomplicated (without systemic symptoms) or Complicated (systemic symptoms)? @ -Uncomplicated Side effects of treatment? @ -No Exacerbation, Progression, or Severe Exacerbation? @ -No Poses a threat to life or bodily function? How? (Chest pain, [place], [place], pneumonia, PE, COPD, DKA, ARF, appy, cholecystitis, CVA, Diverticulitis, Homicidal, Suicidal, threat to staff... and all critical care pts) @ -Unlikely - Radiology Data Radiology results: report reviewed, image reviewed Disposition Clinical Impression: Breast cyst Disposition: HOME SELF-CARE Condition: Stable Instructions (If sedation given, give patient instructions): Breast Self Exam for Women (ED), Cyst (ED) Additional Instructions: PCP. Return to the ER for any new or worsening concerns Is patient prescribed a controlled substance at d/c from ED?: No Referrals: Colona,Namita, FNPBC [REFERRING] - 1-2 days (Contact a primary care office to become established with a provider. ) None,Stated [Primary Care Provider] - 1-2 days Forms: Area PCPs Time of Disposition: 10:43
--- NOTE | 2024-08-17 10:36 | USB ---
Reason for Exam: Clinical finding. Indicated Problems: Lump or thickening of the left side for 4 Month(s). Technique: Method: Targeted. Elastography: Strain. Patient Position: RPO. Prior Study Comparison: No prior studies available for comparison. Findings: The area of palpable concern of the left breast, the axilla of the left breast and the retroareolar of the left breast were scanned. Technique utilized:US breast limited LT Image; Ultrasound imaging of: Area of concern, retroareolar region and axilla. In the area of concern at 8:00 5 cm from the nipple is a area of dense tissue just beneath the skin surface. There is a small tract extending to the surface. Findings favor sebaceous cyst versus other epidermal based lesion. Correlate with clinical exam. No evidence for organizing fluid collection or mass. Overall Assessment: Benign, BI-RAD 2 Management: Screening Mammogram of both breasts at age 39. A clinical breast exam by your physician is recommended on an annual basis and results should be correlated with mammographic findings. This exam should not preclude additional follow-up of suspicious palpable abnormalities. Results were given to the patient verbally at the time of exam. [facility], , 08/17/2024 10:28 AM. Electronically signed and approved by: Jose Barry DO
[2024-08-17 11:00] VITALS: BP 105/72; PULSE 98; TEMP 97.9
== END 2024-08-17 10:58 | disposition home or self-care (01) ==
LOC: EC 09:21
DX: N60.02 Solitary cyst of left breast (principal); F17.290 Nicotine dependence, other tobacco product, uncomplicated; Z91.011 Allergy to milk products; Z91.018 Allergy to other foods
CPT/HCPCS: 99283

== ENCOUNTER 2024-09-07 19:40 | Emergency (ER) | payer OTHER ==
--- NOTE | 2024-09-07 20:49 | ED ---
General Adult HPI - General Chief complaint: Back Pain/Injury Stated complaint: Back pain Time Seen by Provider: 09/07/24 19:57 Source: patient, RN notes reviewed Mode of arrival: ambulatory Limitations: no limitations - History of Present Illness Onset/Timin -: days(s) Location: back Radiation: extremity, distal Severity scale (1-10): 8 Consistency: intermittent Improves with: immobilization, rest Worsens with: movement, other (Standing, walking) Associated Symptoms: other (Intermittent lower extremity paresthesia, pedal pain) Treatments Prior to Arrival: none - Related Data Previous Rx's Medication Instructions Recorded Sertraline [Zoloft] 200 mg PO DAILY 30 Days #60 tab 07/05/24 hydrOXYzine pamoate [Vistaril] 25 mg PO TID 30 Days #90 cap 07/17/24 [place] Carbonate 300 mg PO BID 30 Days #60 cap 08/16/24 Nicotine 14Mg/24Hr Patch [Habitrol] 1 patch TRANSDERM DAILY 30 Days 08/16/24 #30 patch QUEtiapine [SEROquel] 50 mg PO HS 30 Days #210 tab 08/16/24 QUEtiapine [SEROquel] 350 mg PO HS #0 tab 08/16/24 Sertraline [Zoloft] 200 mg PO DAILY 30 Days #60 tab 08/16/24 busPIRone HCl [Buspar] 10 mg PO TID 30 Days #90 tab 08/16/24 hydrOXYzine pamoate [Vistaril] 25 mg PO TID 30 Days #90 cap 08/16/24 Cyclobenzaprine [Flexeril] 10 mg PO TID PRN #15 tab 09/07/24 Lidocaine 4% Patch 1 patch TOPICAL DAILY PRN #10 patch 09/07/24 Allergies Allergy/AdvReac Type Severity Reaction Status Date / Time horseradish Allergy Unknown Verified 09/07/24 20:28 lactose AdvReac Nausea & Verified 09/07/24 20:28 Vomiting red meat AdvReac Nausea & Uncoded 09/07/24 20:28 Vomiting Review of Systems ROS Statement: Those systems with pertinent positive or pertinent negative responses have been documented in the HPI. ROS Other: All systems not noted in ROS Statement are negative. Past Medical History Past Medical History: No Reported History History of Any Multi-Drug Resistant Organisms: None Reported Past Surgical History: No Surgical Hx Reported Past Anesthesia/Blood Transfusion Reactions: No Reported Reaction Past Psychological History: ADD/ADHD, Anxiety, Bipolar, Depression, PTSD, Schizophrenia Smoking Status: Vaper Past Alcohol Use History: Occasional Past Drug Use History: Marijuana General Exam General appearance: alert, in no apparent distress Head exam: Present: atraumatic, normocephalic, normal inspection Eye exam: Present: normal appearance, PERRL, EOMI. Absent: scleral icterus, conjunctival injection, periorbital swelling ENT exam: Present: normal exam, mucous membranes moist Neck exam: Present: normal inspection. Absent: tenderness, meningismus, lymphadenopathy Respiratory exam: Present: normal lung sounds bilaterally. Absent: respiratory distress, wheezes, rales, rhonchi, stridor Cardiovascular Exam: Present: regular rate, normal rhythm, normal heart sounds. Absent: systolic murmur, diastolic murmur, rubs, gallop, clicks GI/Abdominal exam: Present: soft, normal bowel sounds. Absent: distended, tenderness, guarding, rebound, rigid Extremities exam: Present: normal inspection, full ROM, tenderness (Positive bilateral plantar pedal point tenderness along plantar fascia), normal capillary refill, other (BLE distal neurovascular and motor function intact. Dorsalis pedis pulse +2, capillary refill less than 2 seconds). Absent: pedal edema, joint swelling, calf tenderness Back exam: Present: muscle spasm, paraspinal tenderness (Positive bilateral paralumbar muscle spasm and point tenderness), vertebral tenderness (Positive thoracolumbar and lumbar spine tenderness without obvious crepitus or step-off) Neurological exam: Present: alert, oriented X3, CN II-XII intact Psychiatric exam: Present: normal affect, normal mood Skin exam: Present: warm, dry, intact, normal color. Absent: rash Course Vital Signs 09/07/24 20:24 Temperature 98.6 F Pulse Rate 103 H Respiratory 18 Rate Blood Pressure 110/70 O2 Sat by Pulse 99 Oximetry Medical Decision Making - Medical Decision Making Was pt. sent in by a medical professional or institution (, PA, PLASTIC FABRICATOR, urgent care, hospital, or penitentiary...) When possible be specific @ -[No] Did you speak to anyone other than the patient for history (EMS, parent, family, police, friend...)? What history was obtained from this source @ -[No] Did you review nursing and triage notes (agree or disagree)? Why? @ -[I reviewed and agree with nursing and triage notes] Were old charts reviewed (outside hosp., previous admission, EMS record, old EKG, old radiological studies, urgent care reports/EKG's, penitentiary records)? Report findings @ -[No old charts were reviewed] Differential Diagnosis (chest pain, altered mental status, abdominal pain women, abdominal pain men, vaginal bleeding, weakness, fever, dyspnea, syncope, headache, dizziness, GI bleed, back pain, seizure, CVA, palpatations, mental health, musculoskeletal)? @ -Differential Back Pain: Strain, zoster, cauda equina syndrome, epidural abscess, vertebral osteomyelitis, discitis, fracture, subluxation, disc herniation, DJD, spinal stenosis, dissection, AAA, pancreatitis, peptic ulcer disease, pyelonephritis, kidney stone, this is not meant to be an all-inclusive list. EKG interpreted by me (3pts min.). @ -Not done X-rays interpreted by me (1pt min.). @ -[None done] CT interpreted by me (1pt min.). @ -[None done] U/S interpreted by me (1pt. min.). @ -[None done] What testing was considered but not performed or refused? (CT, X-rays, U/S, labs)? Why? @ -[None] What meds were considered but not given or refused? Why? @ -[None] Did you discuss the management of the patient with other professionals (professionals i.e. , PA, PLASTIC FABRICATOR, lab, RT, psych nurse, clinical social work aide, treasurer, teacher, search and rescue officer, immigration case worker)? Give summary @ -[No] Was smoking cessation discussed for >3mins.? @ -[No] Was critical care preformed (if so, how long)? @ -[No] Were there social determinants of health that impacted care today? How? (Homelessness, low income, unemployed, alcoholism, drug addiction, transportation, low edu. Level, literacy, decrease access to med. care, retirement, rehab)? @ -[No] Was there de-escalation of care discussed even if they declined (Discuss DNR or withdrawal of care, Hospice)? DNR status @ -[No] What co-morbidities impacted this encounter? (DM, HTN, Smoking, COPD, CAD, Cancer, CVA, ARF, Chemo, Hep., AIDS, mental health diagnosis, sleep apnea, morbid obesity)? @ -[None] Was patient admitted / discharged? Hospital course, mention meds given and route, prescriptions, significant lab abnormalities, going to OR and other pertinent info. @ -[hospital course] Undiagnosed new problem with uncertain prognosis? @ -[No] Drug Therapy requiring intensive monitoring for toxicity (Heparin, Nitro, Insul in, Cardizem)? @ -[No] Were any procedures done? @ -[No] Diagnosis/symptom? @ -[default] Acute, or Chronic, or Acute on Chronic? @ -Acute on chronic Uncomplicated (without systemic symptoms) or Complicated (systemic symptoms)? @ -Uncomplicated Side effects of treatment? @ -[No] Exacerbation, Progression, or Severe Exacerbation? @ -Exacerbation Poses a threat to life or bodily function? How? (Chest pain, [place], [place], pneumonia, PE, COPD, DKA, ARF, appy, cholecystitis, CVA, Diverticulitis, Homicidal, Suicidal, threat to staff... and all critical care pts) @ -[No] Disposition Clinical Impression: Mechanical back pain Disposition: HOME SELF-CARE Condition: Fair Instructions (If sedation given, give patient instructions): Acute Low Back Pain (ED) Additional Instructions: Alternate Tylenol/Motrin every 4 hours for pain. Apply cold compress to affected area for 10 minutes up to 4 times daily. Follow-up with orthospine for ongoing pain. Return to the ER if experiencing worsening, uncontrolled pain, numbness between thighs or inability to urinate or incontinence. Prescriptions: Cyclobenzaprine [Flexeril] 10 mg PO TID PRN #15 tab PRN Reason: Muscle Spasm Lidocaine 4% Patch 1 patch TOPICAL DAILY PRN #10 patch PRN Reason: Pain Is patient prescribed a controlled substance at d/c from ED?: No Referrals: None,Stated [Primary Care Provider] - 1-2 days [facility] [Provider Group] - 1-2 days [facility] [Provider Group] - 1-2 days Time of Disposition: 21:32
[2024-09-07] MEDS: ACETAMINOPHEN TAB 500 MG TAB PO STA (21:10)
[2024-09-07] MEDS: KETOROLAC 15 MG/ML 1 ML VIAL IM STA (21:11)
[2024-09-07] MEDS: LIDOCAINE 4% PATCH TOPICAL ONE (21:12)
[2024-09-07] MEDS: ORPHENADRINE 30 MG/ML 2 ML VIAL IM STA (21:12)
--- NOTE | 2024-09-07 21:18 | XR ---
EXAMINATION TYPE: XR thoraco lumbar junction, XR lumbar spine 2 or 3V DATE OF EXAM: 09/07/2024 9:03 PM COMPARISON: Prior radiograph 06/30/2015. CLINICAL INDICATION: Female, 18 years old with history of Chronic lower back pain; PHH, pain TECHNIQUE: XR thoraco lumbar junction, XR lumbar spine 2 or 3V - Frontal, lateral and coned in L5-S1 lateral views of the spine. FINDINGS: No evidence of any acute osseous pathology. No evidence of loss of vertebral body height i s seen. There is normal alignment of the lumbar vertebral bodies. No significant degeneration changes throughout the spine. IMPRESSION: No acute osseous abnormality. [facility], , 09/07/2024 9:16 PM
[2024-09-07 22:34] VITALS: BP 124/86; PULSE 94; RESP 16; TEMP 98.5
== END 2024-09-07 22:44 | disposition home or self-care (01) ==
LOC: EC 19:40
DX: M54.9 Dorsalgia, unspecified (principal); F17.290 Nicotine dependence, other tobacco product, uncomplicated; Z91.011 Allergy to milk products; Z91.018 Allergy to other foods
CPT/HCPCS: 72080; 72100; 99284; 96372 ×2; J2360; J1885

== ENCOUNTER 2024-09-15 20:53 | Emergency (ER) | payer OTHER ==
[2024-09-15 21:03] VITALS: RESP 18; TEMP 99
--- NOTE | 2024-09-15 21:31 | ED ---
Psych HPI - General Chief Complaint: Psychiatric Symptoms Stated Complaint: SI Time Seen by Provider: 09/15/24 21:01 Source: EMS Mode of arrival: EMS - History of Present Illness Initial Comments: This patient is a 18-year-old woman with history of schizoaffective disorder, bipolar disorder, social anxiety, who presents to have evaluation because she states that her symptoms have been flaring lately. She is feeling anxious and also is having some suicidal thoughts. The patient states she has been compliant with her medications for the most part but she feels like her symptoms are getting worse, as she has a lot of stress in her life.. MD Complaint: suicidal ideation, feels depressed Onset/Timin -: week(s) Associated Psychiatric Symptoms: depression, suicidal ideation, racing thoughts History of same: Yes Quality: getting worse Improves With: none Worsens With: none Associated Symptoms: denies other symptoms - Related Data Previous Rx's Medication Instructions Recorded [place] Carbonate 300 mg PO BID 30 Days #60 cap 09/19/24 QUEtiapine [SEROquel] 50 mg PO HS 30 Days #210 tab 09/19/24 QUEtiapine [SEROquel] 300 mg PO HS 30 Days #30 tab 09/19/24 QUEtiapine [SEROquel] 350 mg PO HS tab 09/19/24 Sertraline [Zoloft] 200 mg PO DAILY 30 Days #60 tab 09/19/24 busPIRone HCl [Buspar] 10 mg PO TID 30 Days #90 tab 09/19/24 hydrOXYzine HCL [Atarax] 25 mg PO TID tab 09/19/24 hydrOXYzine pamoate [Vistaril] 25 mg PO TID 30 Days #90 cap 09/19/24 Allergies Allergy/AdvReac Type Severity Reaction Status Date / Time horseradish Allergy Unknown Verified 09/16/24 18:48 lactose AdvReac Nausea & Verified 09/16/24 18:48 Vomiting red meat AdvReac Nausea & Uncoded 09/16/24 16:59 Vomiting Review of Systems ROS Statement: Those systems with pertinent positive or pertinent negative responses have been documented in the HPI. ROS Other: All systems not noted in ROS Statement are negative. Constitutional: Denies: fever, chills Respiratory: Denies: cough, dyspnea Cardiovascular: Denies: chest pain, palpitations, edema Gastrointestinal: Reports: diarrhea. Denies: abdominal pain, nausea, vomiting, constipation, melena, hematochezia Genitourinary: Denies: dysuria, hematuria Musculoskeletal: Denies: back pain Skin: Denies: rash Neurological: Denies: headache, weakness, numbness Psychiatric: Reports: anxiety, depression, suicidal thoughts Past Medical History Past Medical History: No Reported History History of Any Multi-Drug Resistant Organisms: None Reported Past Surgical History: No Surgical Hx Reported Past Anesthesia/Blood Transfusion Reactions: No Reported Reaction Past Psychological History: ADD/ADHD, Anxiety, Bipolar, Depression, PTSD, Schizophrenia Smoking Status: Vaper Past Alcohol Use History: Occasional Past Drug Use History: Marijuana General Exam General appearance: alert, in no apparent distress Head exam: Present: atraumatic, normocephalic Eye exam: Present: normal appearance. Absent: scleral icterus, conjunctival injection ENT exam: Present: normal oropharynx Neck exam: Present: normal inspection Respiratory exam: Present: normal lung sounds bilaterally. Absent: respiratory distress, wheezes, rales, rhonchi, stridor, accessory muscle use Cardiovascular Exam: Present: regular rate, normal rhythm, normal heart sounds. Absent: systolic murmur, diastolic murmur, rubs, gallop GI/Abdominal exam: Present: soft. Absent: distended, tenderness, guarding, rebound, rigid Extremities exam: Present: normal inspection, normal capillary refill. Absent: pedal edema, calf tenderness Back exam: Present: normal inspection. Absent: CVA tenderness (R), CVA tenderness (L) Neurological exam: Present: alert Psychiatric exam: Present: depressed, anxious, suicidal ideation. Absent: agitated, flat affect, manic, homicidal ideation Skin exam: Present: warm, dry, intact, normal color. Absent: rash Course Vital Signs 09/15/24 09/15/24 20:56 23:15 Temperature 99.0 F Pulse Rate 96 98 Respiratory 18 18 Rate Blood Pressure 110/65 116/83 O2 Sat by Pulse 98 99 Oximetry Medical Decision Making - Medical Decision Making Was pt. sent in by a medical professional or institution (, PA, WINDOWS SECURITY ANALYST, urgent care, hospital, or jail...) When possible be specific @ -[No] Did you speak to anyone other than the patient for history (EMS, parent, family, police, friend...)? What history was obtained from this source @ -[No] Did you review nursing and triage notes (agree or disagree)? Why? @ -[I reviewed and agree with nursing and triage notes] Were old charts reviewed (outside hosp., previous admission, EMS record, old EKG, old radiological studies, urgent care reports/EKG's, jail records)? Report findings @ -[No old charts were reviewed] Differential Diagnosis (chest pain, altered mental status, abdominal pain women, abdominal pain men, vaginal bleeding, weakness, fever, dyspnea, syncope, headache, dizziness, GI bleed, back pain, seizure, CVA, palpatations, mental health, musculoskeletal)? @ -[Differential Mental Health Depression, anxiety, bipolar, psychosis, schizophrenia, borderline personality, situational depression, adjustment disorder, behavioral disorder, brain tumor, malingering, substance abuse, encephalopathy, medication reaction, dementia, hypothyroidism, degenerative neurologic disorder, lupus.... This is not meant to be all-inclusive list EKG interpreted by me (3pts min.). @ -[As above] X-rays interpreted by me (1pt min.). @ -[None done] CT interpreted by me (1pt min.). @ -[None done] U/S interpreted by me (1pt. min.). @ -[None done] What testing was considered but not performed or refused? (CT, X-rays, U/S, labs)? Why? @ -[None] What meds were considered but not given or refused? Why? @ -[None] Did you discuss the management of the patient with other professionals (professionals i.e. , PA, WINDOWS SECURITY ANALYST, lab, RT, psych nurse, social service coordinator, vocational training teacher, teacher, security officers and guards, counseling case manager)? Give summary @ -[Case discussed with EPS personnel who staffed with psychiatry and then arranged safety plan with patient Was smoking cessation discussed for >3mins.? @ -[No] Was critical care preformed (if so, how long)? @ -[No] Were there social determinants of health that impacted care today? How? (Homelessness, low income, unemployed, alcoholism, drug addiction, transportation, low edu. Level, literacy, decrease access to med. care, fci, rehab)? @ -[No] Was there de-escalation of care discussed even if they declined (Discuss DNR or withdrawal of care, Hospice)? DNR status @ -[No] What co-morbidities impacted this encounter? (DM, HTN, Smoking, COPD, CAD, Cancer, CVA, ARF, Chemo, Hep., AIDS, mental health diagnosis, sleep apnea, morbid obesity)? @ -[None] Was patient admitted / discharged? Hospital course, mention meds given and route, prescriptions, significant lab abnormalities, going to OR and other pertinent info. @ -[hospital course] Undiagnosed new problem with uncertain prognosis? @ -[No] Drug Therapy requiring intensive monitoring for toxicity (Heparin, Nitro, Insulin, Cardizem)? @ -[No] Were any procedures done? @ -[No] Diagnosis/symptom? @ -[Acute mood disorder Suicidal ideation Acute, or Chronic, or Acute on Chronic? @ -[Acute Uncomplicated (without systemic symptoms) or Complicated (systemic symptoms)? @ -[Uncomplicated Side effects of treatment? @ -[No] Exacerbation, Progression, or Severe Exacerbation? @ -[No] Poses a threat to life or bodily function? How? (Chest pain, [place], [place], pneumonia, PE, COPD, DKA, ARF, appy, cholecystitis, CVA, Diverticulitis, Homicidal, Suicidal, threat to staff... and all critical care pts) @ -[No] All treatments are based on ideal body weight as in ED triage Disposition Clinical Impression: Acute anxiety, Mood disorder Disposition: HOME SELF-CARE Condition: Good Instructions (If sedation given, give patient instructions): Mood Disorders (ED) Is patient prescribed a controlled substance at d/c from ED?: No Referrals: None,Stated [Primary Care Provider] - 1-2 days
[2024-09-15 23:18] VITALS: BP 116/83; PULSE 98
== END 2024-09-15 23:17 | disposition home or self-care (01) ==
LOC: EC 20:53
DX: F41.9 Anxiety disorder, unspecified (principal); F39 Unspecified mood [affective] disorder; R45.851 Suicidal ideations; F17.290 Nicotine dependence, other tobacco product, uncomplicated; Z91.014 Allergy to mammalian meats; Z91.011 Allergy to milk products
CPT/HCPCS: 82075; 99284

== ENCOUNTER 2024-09-16 16:46 | Inpatient (IN) | payer MEDICAID, OTHER ==
--- NOTE | 2024-09-16 17:52 | ED ---
Psych HPI - General Chief Complaint: Psychiatric Symptoms Stated Complaint: Mental health eval Time Seen by Provider: 09/16/24 17:44 Source: patient, family, EMS, RN notes reviewed Mode of arrival: EMS - History of Present Illness Initial Comments: 18-year-old female presenting for suicidal ideation with plan. States she wants to OD on pills. States she was seen yesterday and was not honest about her suicidal thoughts. Denies homicidal ideation. No medical complaints. - Related Data Previous Rx's Medication Instructions Recorded Sertraline [Zoloft] 200 mg PO DAILY 30 Days #60 tab 07/05/24 hydrOXYzine pamoate [Vistaril] 25 mg PO TID 30 Days #90 cap 07/17/24 [place] Carbonate 300 mg PO BID 30 Days #60 cap 08/16/24 Nicotine 14Mg/24Hr Patch [Habitrol] 1 patch TRANSDERM DAILY 30 Days 08/16/24 #30 patch QUEtiapine [SEROquel] 50 mg PO HS 30 Days #210 tab 08/16/24 QUEtiapine [SEROquel] 350 mg PO HS #0 tab 08/16/24 Sertraline [Zoloft] 200 mg PO DAILY 30 Days #60 tab 08/16/24 busPIRone HCl [Buspar] 10 mg PO TID 30 Days #90 tab 08/16/24 hydrOXYzine pamoate [Vistaril] 25 mg PO TID 30 Days #90 cap 08/16/24 Cyclobenzaprine [Flexeril] 10 mg PO TID PRN #15 tab 09/07/24 Lidocaine 4% Patch 1 patch TOPICAL DAILY PRN #10 patch 09/07/24 Allergies Allergy/AdvReac Type Severity Reaction Status Date / Time horseradish Allergy Unknown Verified 09/16/24 16:59 lactose AdvReac Nausea & Verified 09/16/24 16:59 Vomiting red meat AdvReac Nausea & Uncoded 09/16/24 16:59 Vomiting Review of Systems ROS Statement: Those systems with pertinent positive or pertinent negative responses have been documented in the HPI. ROS Other: All systems not noted in ROS Statement are negative. Past Medical History Past Medical History: No Reported History History of Any Multi-Drug Resistant Organisms: None Reported Past Surgical History: No Surgical Hx Reported Past Anesthesia/Blood Transfusion Reactions: No Reported Reaction Past Psychological History: ADD/ADHD, Anxiety, Bipolar, Depression, PTSD, Schizophrenia Smoking Status: Vaper Past Alcohol Use History: Occasional Past Drug Use History: Marijuana General Exam Limitations: no limitations General appearance: alert, in no apparent distress Head exam: Present: atraumatic, normocephalic, normal inspection Eye exam: Present: normal appearance, PERRL, EOMI. Absent: scleral icterus, conjunctival injection, periorbital swelling Neurological exam: Present: alert, oriented X3 Psychiatric exam: Present: normal affect, normal mood, suicidal ideation. Absent: homicidal ideation Skin exam: Present: warm, dry, intact, normal color. Absent: rash Course Vital Signs 09/16/24 16:55 Temperature 98.2 F Pulse Rate 91 Respiratory 20 Rate Blood Pressure 103/70 O2 Sat by Pulse 95 Oximetry Medical Decision Making - Medical Decision Making Was pt. sent in by a medical professional or institution (, PA, RECREATION INSTRUCTOR, urgent care, hospital, or long-term...) When possible be specific @ -No Did you speak to anyone other than the patient for history (EMS, parent, family, police, friend...)? What history was obtained from this source @ -No Did you review nursing and triage notes (agree or disagree)? Why? @ -I reviewed and agree with nursing and triage notes Were old charts reviewed (outside hosp., previous admission, EMS record, old EKG, old radiological studies, urgent care reports/EKG's, long-term records)? Report findings @ -No old charts were reviewed Differential Diagnosis (chest pain, altered mental status, abdominal pain women, abdominal pain men, vaginal bleeding, weakness, fever, dyspnea, syncope, headache, dizziness, GI bleed, back pain, seizure, CVA, palpatations, mental health, musculoskeletal)? @ -Differential Mental Health Depression, anxiety, bipolar, psychosis, schizophrenia, borderline personality, situational depression, adjustment disorder, behavioral disorder, brain tumor, malingering, substance abuse, encephalopathy, medication reaction, dementia, hypothyroidism, degenerative neurologic disorder, lupus.... This is not meant to be all-inclusive list EKG interpreted by me (3pts min.). @ -None X-rays interpreted by me (1pt min.). @ -None done CT interpreted by me (1pt min.). @ -None done U/S interpreted by me (1pt. min.). @ -None done What testing was considered but not performed or refused? (CT, X-rays, U/S, labs)? Why? @ -None What meds were considered but not given or refused? Why? @ -None Did you discuss the management of the patient with other professionals (pr ofessionals i.e. , PA, RECREATION INSTRUCTOR, lab, RT, psych nurse, social media sr strategy manager, group fitness manager, teacher, mail officer, case packer)? Give summary @ -EPS determines that patient does meet inpatient criteria and will be admitted for psychiatric hospitalization Was smoking cessation discussed for >3mins.? @ -No Was critical care preformed (if so, how long)? @ -No Were there social determinants of health that impacted care today? How? (Homelessness, low income, unemployed, alcoholism, drug addiction, transportation, low edu. Level, literacy, decrease access to med. care, fci, rehab)? @ -No Was there de-escalation of care discussed even if they declined (Discuss DNR or withdrawal of care, Hospice)? DNR status @ -No What co-morbidities impacted this encounter? (DM, HTN, Smoking, COPD, CAD, Cancer, CVA, ARF, Chemo, Hep., AIDS, mental health diagnosis, sleep apnea, morbid obesity)? @ -None Was patient admitted / discharged? Hospital course, mention meds given and route, prescriptions, significant lab abnormalities, going to OR and other pertinent info. @ -Admitted. 18-year-old female presenting for suicidal ideation with plan. No medical complaints at this time. Patient is medically cleared to be seen by EPS. Patient was evaluated by EPS who determined that patient does meet inpatient criteria and will be admitted for psychiatric hospitalization. Case was discussed with my ED attending Dr. Borrero. Undiagnosed new problem with uncertain prognosis? @ -No Drug Therapy requiring intensive monitoring for toxicity (Heparin, Nitro, Insulin, Cardizem)? @ -No Were any procedures done? @ -No Diagnosis/symptom? @ -Suicidal ideation Acute, or Chronic, or Acute on Chronic? @ -Acute Uncomplicated (without systemic symptoms) or Complicated (systemic symptoms)? @ -Uncomplicated Side effects of treatment? @ -No Exacerbation, Progression, or Severe Exacerbation? @ -No Poses a threat to life or bodily function? How? (Chest pain, [place], [place], pneumonia, PE, COPD, DKA, ARF, appy, cholecystitis, CVA, Diverticulitis, Homicidal, Suicidal, threat to staff... and all critical care pts) @ -Yes, suicidal Disposition Clinical Impression: Suicidal ideation Disposition: ADMITTED IP TO THIS HOSP Referrals: None,Stated [Primary Care Provider] - 1-2 days Time of Disposition: 17:51
[2024-09-16] MEDS ORDERED: ACETAMINOPHEN TAB 325 MG TAB PO PRN (18:15)
[2024-09-16] MEDS ORDERED: MAGNESIUM HYDROXIDE 2,400 MG/30 ML CUP PO PRN (18:15)
[2024-09-16] MEDS ORDERED: OLANZapine 10 MG VIAL IM PRN (18:17)
[2024-09-16 18:24] LABS: Opiate Screen,Urine Not Detected (NotDetected); Phencyclidine Screen,Urine Not Detected (NotDetected); Urn Cannabinoid Scrn Detected (NotDetected)
[2024-09-16 18:25] LABS: Barbiturate Screen,Urine Not Detected (NotDetected); Benzodiazepines Screen,Urine Detected (NotDetected); Oxycodone Screen, Urine Not Detected (NotDetected); Tricyclic Antidepressant,Urine Detected (NotDetected)
[2024-09-16] MEDS ORDERED: QUEtiapine 50 MG TAB PO SCH (21:00)
[2024-09-16] MEDS: QUEtiapine 100 MG TAB PO SCH (21:02)
[2024-09-16] MEDS: LITHIUM CARBONATE 150 MG CAP PO SCH (21:02)
[2024-09-16] MEDS: hydrOXYzine HCL 25 MG TAB PO SCH (21:02)
[2024-09-17 07:53] LABS: Basophils # (A) 0.09 10*3/uL (0.00-0.10); Basophils % (A) 0.8 %; Eosinophils # (A) 0.49 10*3/uL (0.04-0.35); Eosinophils % (A) 4.6 %; HCT 38.6 % (37.2-46.3); HGB 12.7 g/dL (12.0-15.0); Lymphocytes # (A) 3.74 10*3/uL (0.90-5.00); Lymphocytes % (A) 35.2 %; MCH 27.5 pg (27.0-32.0); MCHC 32.9 g/dL (32.0-37.0); MCV 83.5 fL (80.0-97.0); Monocytes # (A) 0.71 10*3/uL (0.20-1.00); Monocytes % (A) 6.7 %; Neutrophils # (A) 5.56 10*3/uL (1.80-7.70); Neutrophils % (A) 52.4 %; Platelet Count 323 10*3/uL (140-440); RBC 4.62 10*6/uL (4.10-5.20); RDW 16.2 % (11.5-14.5); WBC 10.62 10*3/uL (4.50-10.00)
[2024-09-17 08:14] LABS: ALT 20 U/L (4-34); AST 19 U/L (14-36); African American GFR (CKD) >90 (>60 ml/min/1.73 sqM); Albumin 4.1 g/dL (3.5-5.0); Alkaline Phosphatase 96 U/L (38-126); Anion Gap 8 mmol/L; Blood Urea Nitrogen 11 mg/dL (7-17); Calcium 9.7 mg/dL (8.4-10.2); Carbon Dioxide 25 mmol/L (22-30); Chloride 107 mmol/L (98-107); Glucose 100 mg/dL (74-99); Non-African American GFR(CKD) >90 (>60 ml/min/1.73 sqM); Potassium 4.2 mmol/L (3.5-5.1); Sodium 140 mmol/L (137-145); Total Protein 7.2 g/dL (6.3-8.2)
[2024-09-17 08:27] LABS: Lithium 0.5 mmol/L
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
[2024-09-17] MEDS ORDERED: NICOTINE 14MG/24HR PATCH TRANSDERM SCH (09:00)
[2024-09-17] MEDS ORDERED: HYDROXYZINE PAMOATE 25 MG PO SCH (09:00)
[2024-09-17] MEDS ORDERED: SERTRALINE 100 MG TAB PO SCH (09:00)
[2024-09-17] MEDS: SERTRALINE 100 MG TAB PO SCH (09:43)
[2024-09-17] MEDS: LITHIUM CARBONATE 300 MG CAP PO SCH (09:43)
[2024-09-17] MEDS: NICOTINE 14MG/24HR PATCH TRANSDERM SCH (09:44)
[2024-09-17] MEDS: MAG HYDROX/AL HYDROX/SIMETH 355 ML BOTTLE PO PRN (13:24)
[2024-09-17 13:57] LABS: Bilirubin,Urine Negative (Negative); Blood,Urine Large (Negative); Color,Urine Light Red; Glucose,Urine (UA) Negative (Negative); Ketones,Urine Negative (Negative); Leukocyte Esterase,Urine Small (Negative); Mucus,Urine Occasional /hpf; Nitrite,Urine Negative (Negative); PH, Urine 6.0 (5.0-8.0); Protein,Urine Trace (Negative); RBC,Urine >182 /hpf (0-5); Specific Gravity,Urine 1.021 (1.001-1.035); Squamous Epithelial Cell,Urine 2 /hpf (0-4); Urobilinogen,Urine <2.0 mg/dL (<2.0); WBC,Urine 27 /hpf (0-5)
[2024-09-17] MEDS: LORazepam 1 MG TAB PO PRN (17:03)
[2024-09-17] MEDS: OLANZapine ODT 5 MG TAB PO PRN (18:45)
[2024-09-17] MEDS ORDERED: QUEtiapine 100 MG TAB PO SCH (21:00)
[2024-09-18 09:15] VITALS: BP 94/51
--- NOTE | 2024-09-18 12:58 | P.PN ---
Progress Note - Text Progress Note Date: 09/18/24 Chief complaint: "I feel like hurting myself HPI: I went to go see the patient he was lying down and would not get up due to being sleepy. We discussed the patient in morning meeting and he has a history of not participating in the program and generally staying in his room sleeping or when meals are called he eats. I asked how the patient was doing today he notes that he is ready to go home. He denied any suicidal or homicidal ideations. He notes that he is not depressed but notes that his anxiety is moderate. He notes that his sleep is good. He denies any problems with energy, appetite or concentration. He denies any side effects with restarting his home medications. Stressors: Unemployment, Housing problems MENTAL STATUS EXAM: General Appearance: Patient appears to be his stated age is alert, obese and mildly disheveled. Patient appears to have fair hygiene. Behavior: The patient was lying in bed with limited interaction with the exception of shaking his leg Speech: Patient's speech is fluent and nonpressured. Mood/Affect: Patient reports their mood is depressed, affect is congruent and constricted. Suicidality/Homicidality: The patient denied any suicidal or homicidal ideations. Perceptions: Patient denies any visual hallucinations and denies any auditory hallucinations Though content/process: There is no evidence of any delusional thought content and thought process is linear and goal-directed. Memory and concentration: AOX3, grossly intact for the purposes of this session. Judgment and insight: Fair\\Fair Diagnosis: Bipolar spectrum disorder Autistic spectrum disorder Cluster B personality disorder Generalized anxiety disorder Tobacco use disorder Cannabis use disorder Assessment: The patient appears to be recovering but there are some questions whether admitting the patient to this particular unit is therapeutic or as the patient just using the facilities for sleep/meals. The patient's been admitted over 5 times in the last year and each time the lack of participation into group activities and therapeutic care has been noticed. PLAN: -Patient is admitted under voluntary status to MHU for stabilization of psychiatric symptoms and safety. Patient has signed adult voluntary form and medication consent and is placed in patient's chart. -Medications : Continue home medications Seroquel 300 mg take 1 capsule by mouth at bedtime for mood Seroquel 50 mg take 1 capsule by mouth at bedtime for mood Sertraline 100 mg take 2 tablets by mouth once daily for depression/anxiety BuSpar 10 mg take 1 tablet by mouth 3 times daily for anxiety Hydroxyzine 25 mg take 1 tablet by mouth 3 times daily for anxiety [place] 300 mg take 1 tablet by mouth twice daily for mood -Ativan and Haldol PRN for agitation/aggression -Labs [place], TSH are pending -Patient was informed of the risks, benefits and side effects of the medication and patient verbally consented to taking the medications. Patient signed med consent form and was placed in chart. -Internal Medicine consult to perform medical evaluation and physical. -NRT -nicotine patch -SW on board for discharge planning. Encourage patient to participate in groups to work on coping skills.
[2024-09-18] MEDS: IBUPROFEN 600 MG TAB PO PRN (18:04)
[2024-09-19 09:14] VITALS: PULSE 120; RESP 18; TEMP 97
--- NOTE | 2024-09-19 10:10 | P.DS ---
Providers Date of admission: 09/16/24 18:11 Admission HPI: Admission note was completed by Dr. Callahan "The patient presented to the hospital requesting admission due to suicidal thoughts as well as self harming thoughts. The patient has several stressors in his life including unemployment and being on the verge of being homeless. 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 After which he became stressed out and started thinking about overdosing or cutting himself to release pain. He notes that he has not had any suicidal thoughts since being here but does not feel safe leaving. He notes that his depression and anxiety are severe and he lacks interest in pleasurable activities. He notes that he is not sleeping well, low energy, low appetite and low concentration. He feels hopeless. He denies any crying but has feelings of guilt and shame. He denies any homicidal thoughts or access to guns. He was able to voice a safety plan including 911 and 988." Hospital course: Upon admission to the unit patient was directable and agreeable to commence treatment and signed adult voluntary form. Patient got along well with other patients on the unit and followed unit protocol. Patient was compliant with the medications and denied any side effects throughout hospital course. Patient was started on Seroquel, sertraline, BuSpar, hydroxyzine and lithium. The patient spoke of his stressors and engaged in therapy both group and individual. Patient was also seen by medical team for history and physical exam. Throughout the course of the hospitalization patient gradually improved with regards to mood, anxiety, sleep and returned back to their baseline level of functioning became more future oriented with improved insight and judgment. On the day of discharge patient denied any suicidal or homicidal ideations intent or plan denied any auditory or visual hallucinations. Patient endorsed wanting to live for their health and family. The patient denied any access to guns or weapons. Patient denied any paranoia and did not endorse any delusions. Patient does have a significant history of substance abuse was counseled on abstaining from all substances including alcohol and marijuana. Patient was also counseled on the medications and need for regular compliance and was encouraged to follow-up with their outpatient appointment for mental health and also for primary care. Prior to discharge a family meeting will be arranged by social director to answer any questions and ensure safety upon discharge incuding making sure that guns/weapons are either removed from the home or locked away. The patient notes that he is not suicidal or homicidal. He was able to voice a safety plan inc luding 911 and 988. He denied any depression and notes low anxiety. She denied any problems with sleep, energy, appetite or concentration. She notes that she is going to live with her mother and 2 sisters. Mental status exam: General Appearance: Patient appears to be his stated age is alert, pleasant, and cooperative. Patient is in no acute distress and has improved hygiene and grooming Behavior: Patient is calmly seated without any agitated behavior. Speech: Patient's speech is fluent and nonpressured. Mood/Affect: Patient reports their mood is "better good", affect is congruent and euthymic. Suicidality/Homicidality: Patient denies having any suicidal or homicidal ideation intent or plan. Perceptions: Patient denies any auditory or visual hallucinations. Though content/process: There is no evidence of any delusional thought content and thought process is linear and goal-directed. More future oriented Memory and concentration: AOX3, grossly intact for the purposes of this session. Can spell "WORLD" backwards correctly. Judgment and insight: Chronically poor, however has improved with guarded prognosis Diagnosis: Bipolar spectrum disorder Autistic spectrum disorder Cluster B personality disorder Generalized anxiety disorder Tobacco use disorder Cannabis use disorder Plan: -Continue with discharge today as patient has improved and stabilized psychiatrically and is not currently an imminent threat to themself and/or others. -Continue medications: Seroquel 300 mg take 1 capsule by mouth at bedtime for mood Seroquel 50 mg take 1 capsule by mouth at bedtime for mood Sertraline 100 mg take 2 tablets by mouth once daily for depression/anxiety BuSpar 10 mg take 1 tablet by mouth 3 times daily for anxiety Hydroxyzine 25 mg take 1 tablet by mouth 3 times daily for anxiety [place] 300 mg take 1 tablet by mouth twice daily for mood -Patient was counseled on the need for medication compliance and appropriate follow-up at mental health and also primary care for medical issues. Patient verbalized understanding and agreed. -Social work to help coordinate patients discharge today arrange for and conduct family meeting to ensure safety upon discharge and answer any questions/concerns. also to ensure safe home environment that guns/weapons are either removed from the home or locked away. Social work also to arrange for patients follow up appointments with [facility] for psychiatric care along with follow up with primary care provider. -Patient counseled on abstaining from recreational drugs and marijuana and alcohol. Was informed/educated on the adverse effects on their physical and mental health. Patient verbally agreed and understood. -Patient was instructed to return to the hospital or seek immediate medical care if their psychiatric or medical symptoms do worsen or reoccur. Note: The patient has had 5 admissions in the last 3 months. Per staff he does not participate in activities in the therapy and other activities that are offered. The patient stays mainly isolative to his room when admitted. It is felt strongly that this is not a therapeutic environment for the patient and referral to another mental health psychiatric unit is recommended upon being seen in the ER. If there are no other choices it is recommended admitting the patient to the unit. This has been communicated to the patient with special note that he will not be turned away if he is in mental health crisis. Expected date of discharge: 09/19/24 Attending physician: Ivonne Lei MD Consults: 09/16/24 18:15 Consult Physician Routine Consulting Provider: [facility] Consult Reason/Comments: H&P Do you want consulting provider notified?: Yes Primary care physician: Stated None - Discharge Diagnosis(es) (1) Suicidal ideation Current Visit: Yes Status: Chronic Priority: Low (2) Bipolar disorder current episode depressed Current Visit: No Status: Chronic Priority: Medium Plan - Discharge Summary Discharge Rx Participant: No New Discharge Prescriptions: No Action hydrOXYzine pamoate [Vistaril] 25 mg PO TID 30 Days #90 cap [place] Carbonate 300 mg PO BID QUEtiapine [SEROquel] 300 mg PO HS Sertraline [Zoloft] 200 mg PO DAILY 30 Days #60 tab busPIRone HCl [Buspar] 10 mg PO TID 30 Days #90 tab Nicotine 14Mg/24Hr Patch [Habitrol] 1 patch TRANSDERM DAILY 30 Days #30 patch QUEtiapine [SEROquel] 50 mg PO HS 30 Days #210 tab Discharge Medication List Sertraline [Zoloft] 200 mg PO DAILY 30 Days #60 tab 07/05/24 [Rx] hydrOXYzine pamoate [Vistaril] 25 mg PO TID 30 Days #90 cap 07/17/24 [Rx] Nicotine 14Mg/24Hr Patch [Habitrol] 1 patch TRANSDERM DAILY 30 Days #30 patch 08/16/24 [Rx] QUEtiapine [SEROquel] 50 mg PO HS 30 Days #210 tab 08/16/24 [Rx] busPIRone HCl [Buspar] 10 mg PO TID 30 Days #90 tab 08/16/24 [Rx] [place] Carbonate 300 mg PO BID 09/16/24 [History] QUEtiapine [SEROquel] 300 mg PO HS 09/16/24 [History] Follow up Appointment(s)/Referral(s): None,Stated [Primary Care Provider] - 1-2 days Activity/Diet/Wound Care/Special Instructions: [facility] Discharge Info Avoid the use of street drugs and alcohol. Take all medications as prescribed. When you are in need of refills on your medications, please contact your outpatient medical provider and/or outpatient psychiatrist. Please go to your scheduled outpatient appointments for aftercare treatment. If symptoms return or become worse, call the crisis line at or and/or visit the nearest emergency room for assistance. National Suicide and Crisis Lifeline - call or text 685.
== END 2024-09-19 12:04 | disposition home or self-care (01) | DRG 753 ==
LOC: EC 16:46 → 3MHU 18:11
PROVIDERS: ADMIT Psychiatry & Neurology Psychiatry; ATTEND Psychiatry & Neurology Psychiatry
DX: F31.30 Bipolar disorder, current episode depressed, mild or moderate severity, unspecified (principal); F12.90 Cannabis use, unspecified, uncomplicated; F17.200 Nicotine dependence, unspecified, uncomplicated; F20.9 Schizophrenia, unspecified; F41.1 Generalized anxiety disorder; F43.10 Post-traumatic stress disorder, unspecified; F60.89 Other specific personality disorders; F84.0 Autistic disorder; R45.851 Suicidal ideations; Z56.0 Unemployment, unspecified; Z59.00 Homelessness unspecified; Z62.810 Personal history of physical and sexual abuse in childhood; Z79.899 Other long term (current) drug therapy; Z81.8 Family history of other mental and behavioral disorders; Z91.51 Personal history of suicidal behavior; Z91.52 Personal history of nonsuicidal self-harm; Z11.52 Encounter for screening for COVID-19
CPT/HCPCS: 80053; 80178; 80306; 81001; 81025; 82075; 83036; 84443; 85025; 87635; 99285